=== PATIENT | female | born 1935 | race Caucasian/White ===

== ENCOUNTER 2018-03-24 12:03 | Emergency (ER) | payer OTHER ==
--- NOTE | 2018-03-24 13:44 | RAD REPORT ---
EXAM DESCRIPTION: RAD - Chest Single View - 03/24/2018 1:37 pm CLINICAL HISTORY: CHEST PAIN Chest pain. COMPARISON: Chest Single View dated 07/24/2017; Chest Single View dated 05/04/2017; Chest Pa And Lat ( 2 Views) dated 04/24/2017; CHEST SINGLE VIEW dated 01/16/2015; Thorax Wo Con dated 07/25/2017 FINDINGS: Portable technique limits examination quality. Elevated right hemidiaphragm is seen with ill-defined opacity in the right upper lobe appearing sligh tly progressive since comparative study. The left lung is grossly clear. The heart is upper limit nor mal size. No displaced fractures.
[2018-03-24 14:23] LABS: Absolute Lymphocytes (CBC) 2.1 K/uL (0.7-4.9); Absolute Monocytes 0.9 K/uL (0.1-1.3); Absolute Neutrophil 7.6 K/uL (1.8-8.0); Basophils % 1.1 % (0-1.3); Eosinophils % 1.4 % (0-4.4); Hematocrit 35.3 % (36.0-45.0); Lymphocytes % 19.3 % (15.3-44.8); MCH 25.5 pg (27.0-35.0); MCV 79.6 fL (80-100); MPV 7.7 fL (7.6-11.3); Monocytes % 7.9 % (3.3-12.3); RBC Red Blood Cell Count 4.44 M/uL (3.86-4.86)
[2018-03-24 14:27] LABS: Protime INR 1.04
[2018-03-24 14:49] LABS: ALT/SGPT 17 U/L (12-78); AST/SGOT 16 U/L (15-37); Albumin 3.5 g/dL (3.4-5.0); Alkaline Phosphatase 113 U/L (45-117); BUN Blood Urea Nitrogen 43 mg/dL (7-18); Bicarbonate 34 mmol/L (21-32); Bilirubin Direct < 0.1 mg/dL (0-0.2); Bilirubin Total 0.3 mg/dL (0.2-1.0); Glucose Level 97 mg/dL (74-106); Lipase 199 U/L (73-393); Magnesium 2.1 mg/dL (1.8-2.4); NT PRO-BNP 322 pg/mL (<450); Potassium 4.7 mmol/L (3.5-5.1); Protein, Total 7.5 g/dL (6.4-8.2); Sodium Level 135 mmol/L (136-145)
--- NOTE | 2018-03-24 15:26 | EKG ---
Test Date: 2018-03-24 Test Time: 13:22:19 [employer]estock [employer]: DIEGO MEASUREMENT RESULTS: Intervals: Rate: 87 UT: 166 QRSD: 84 QT: 370 QTc: 445 Novelty: P: 48 UT: 166 QRS: -20 T: 61 INTERPRETIVE STATEMENTS: Normal sinus rhythm Minimal voltage criteria for LVH, may be normal variant Anteroseptal infarct, age undetermined Abnormal ECG Compared to ECG 07/24/2017 18:21:39 Left ventricular hypertrophy now present Myocardial infarct finding still present Electronically Signed On 03-24-18 15:26:01 CDT by Cristian Chambers
[2018-03-24 16:01] LABS: Urine Blood NEGATIVE (NEG); Urine Glucose NEGATIVE (NEG); Urine Protein NEGATIVE (NEG); Urine Specific Gravity 1.015 (1.005-1.030)
--- NOTE | 2018-03-24 16:20 | EDPHYS ---
Physician Documentation [facility] Name: Alia Cisneros Age: 83 yrs Sex: Female : 1935 Arrival Date: 03/24/2018 Time: 12:06 Bed 15 Private MD: Jefferson Staley E ED Physician Catalino Smith HPI: 03/24 15:12 This 83 yrs old Female presents to ER via Wheelchair with complaints of FLUID jr8 RETENTION. 15:12 Onset: The symptoms/episode began/occurred gradually, 3 week(s) ago. Associated signs jr8 and symptoms: The patient has no apparent associated signs or symptoms. Modifying factors: The patient symptoms are alleviated by nothing, the patient symptoms are aggravated by nothing. The patient has experienced similar episodes in the past, a few times. The patient has not recently seen a physician. Stated that she has not been able to get the fluid off of her legs. Stated that she has lung cancer and CKD along with chronic COPD and CHF. Wears home oxygen continuously. Does not f/u with anyone other then PCP and does not want treatment for her kidneys' or cancer. Historical: - Allergies: 12:25 PENICILLINS; aj - Home Meds: 12:25 acetazolamide 250 mg Oral tab once daily [Active]; aspirin 81 mg Oral TbEC 1 tab once aj daily [Active]; equate non-drowsy allergy relief once a day [Active]; hydroxyzine HCl 25 mg Oral tab 4 times per day [Active]; Mucinex DM 60-1,200 mg Oral TM12 twice a day [Active]; omeprazole 20 mg Oral cpDR 1 cap once daily [Active]; - PMHx: 12:25 Cellulitis; CHF; COPD; Hyperlipidemia; Hypertension; R side of diaphragm paralyzed; aj Renal Disease; - PSHx: 12:25 Appendectomy; Tonsillectomy; Cataracts; Foot surgery; Knee surgery; Stomach stapling; aj - Immunization history:: Adult Immunizations up to date. - Social history:: Smoking status: Patient/guardian denies using tobacco. - Ebola Screening: : Patient negative for fever greater than or equal to 101.5 degrees Fahrenheit, and additional compatible Ebola Virus Disease symptoms Patient denies exposure to infectious person Patient denies travel to an Ebola-affected area in the 21 days before illness onset No symptoms or risks identified at this time. ROS: 15:12 Eyes: Negative for injury, pain, redness, and discharge, ENT: Negative for injury, jr8 pain, and discharge, Neck: Negative for injury, pain, and swelling, Respiratory: Negative for shortness of breath, cough, wheezing, and pleuritic chest pain, Abdomen/GI: Negative for abdominal pain, nausea, vomiting, diarrhea, and constipation, Back: Negative for injury and pain, MS/Extremity: Negative for injury and deformity, Skin: Negative for injury, rash, and discoloration, Neuro: Negative for headache, weakness, numbness, tingling, and seizure. 15:12 Cardiovascular: Positive for edema, Negative for chest pain, orthopnea, palpitations, paroxysmal nocturnal dyspnea. Exam: 15:12 Eyes: Pupils equal round and reactive to light, extra-ocular motions intact. Lids and jr8 lashes normal. Conjunctiva and sclera are non-icteric and not injected. Cornea within normal limits. Periorbital areas with no swelling, redness, or edema. ENT: Nares patent. No nasal discharge, no septal abnormalities noted. Tympanic membranes are normal and external auditory canals are clear. Oropharynx with no redness, swelling, or masses, exudates, or evidence of obstruction, uvula midline. Mucous membranes moist. Neck: Trachea midline, no thyromegaly or masses palpated, and no cervical lymphadenopathy. Supple, full range of motion without nuchal rigidity, or vertebral point tenderness. No Meningismus. Respiratory: Lungs have equal breath sounds bilaterally, clear to auscultation and percussion. No rales, rhonchi or wheezes noted. No increased work of breathing, no retractions or nasal flaring. Abdomen/GI: Soft, non-tender, with normal bowel sounds. No distension or tympany. No guarding or rebound. No evidence of tenderness throughout. Back: No spinal tenderness. No costovertebral tenderness. Full range of motion. Skin: Warm, dry with normal turgor. Normal color with no rashes, no lesions, and no evidence of cellulitis. MS/ Extremity: Pulses equal, no cyanosis. Neurovascular intact. Full, normal range of motion. Neuro: Awake and alert, GCS 15, oriented to person, place, time, and situation. Cranial nerves II-XII grossly intact. Motor strength 5/5 in all extremities. Sensory grossly intact. Cerebellar exam normal. Normal gait. 15:12 Cardiovascular: Rate: normal, Rhythm: regular, Pulses: Pulses are 2+ in right radial artery and left radial artery. Heart sounds: normal, normal S1and S2, no S3 or S4, no murmur, no rub, no gallop, Edema: 2+ edema to level of left midcalf, left ankle, left foot, right midcalf, right ankle and right foot, JVD: is not appreciated. Vital Signs: 12:25 BP 128 / 66; Pulse 92; Resp 24; Temp 97.4; Pulse Ox 96% on R/A; Weight 108.86 kg; aj Height 5 ft. 3 in. (160.02 cm); 13:30 BP 145 / 66; Pulse 89; Resp 18; Pulse Ox 99% on R/A; mh5 14:30 BP 119 / 60; Pulse 92; Resp 20; Pulse Ox 99% on R/A; mh5 15:09 BP 144 / 70; Pulse 84; Resp 17; Pulse Ox 97% on R/A; mh5 16:07 BP 152 / 70; Pulse 78; Resp 18; Pulse Ox 98% on 2 lpm NC; ph 12:25 Body Mass Index 42.51 (108.86 kg, 160.02 cm) aj MDM: 13:05 Patient medically screened. [facility] 15:12 Data reviewed: vital signs, nurses notes, lab test result(s), EKG, radiologic studies, [facility] plain films. Data interpreted: Pulse oximetry: on 2L(s) per nasal canula, is 98 %. Interpretation: normal. Counseling: I had a detailed discussion with the patient and/or guardian regarding: the historical points, exam findings, and any diagnostic results supporting the discharge/admit diagnosis, lab results, radiology results, the need for outpatient follow up, a family practitioner, to return to the emergency department if symptoms worsen or persist or if there are any questions or concerns that arise at home. 16:18 ED course: Patient feeling better. Legs not as tight. Will go home to f/u with PCP . 8 03/24 13:05 Order name: Basic Metabolic Panel; Complete Time: 15:05 [facility] 03/24 13:05 Order name: CBC with Diff; Complete Time: 15:05 [facility] 03/24 13:05 Order name: LFT's; Complete Time: 15: [facility] 03/24 13:05 Order name: Magnesium; Complete Time: 15: [facility] 03/24 13:05 Order name: NT PRO-BNP; Complete Time: 15: [facility] 03/24 13:05 Order name: PT-INR; Complete Time: 15: 03/24 13:05 Order name: XRAY Chest (1 view); Complete Time: 15: [facility] 03/24 13:05 Order name: EKG; Complete Time: 13: 03/24 13:05 Order name: Cardiac monitoring; Complete Time: 14: 03/24 13:05 Order name: EKG - Nurse/Tech; Complete Time: 14: [facility] 03/24 13:05 Order name: Lipase; Complete Time: 15: 03/24 15:04 Order name: Urine Dipstick--Ancillary (enter results); Complete Time: 16:20 03/24 13:05 Order name: IV Saline Lock; Complete Time: 14: [facility] 03/24 13:05 Order name: Labs collected and sent; Complete Time: 14: 03/24 13:05 Order name: O2 Per Protocol; Complete Time: 14: [facility] 03/24 13:05 Order name: O2 Sat Monitoring; Complete Time: 14: [facility] 03/24 13:05 Order name: Urine Dipstick-Ancillary (obtain specimen); Complete Time: 14: Administered Medications: 15:00 Drug: Lasix 60 mg Route: IVP; Site: right antecubital; ph 19:25 Follow up: Urine output 1000 ml; Response: No adverse reaction ph Disposition: 03/25 06:52 Co-signature as Attending Physician, Catalino Smith MD I agree with the assessment and jean claude plan of care. Disposition: 03/24/18 16:19 Discharged to Home. Impression: Edema, unspecified - lower extremity, Urinary tract infection, site not specified. - Condition is Stable. - Discharge Instructions: Edema. - Prescriptions for Macrobid 100 mg Oral Capsule - take 1 capsule by ORAL route every 12 hours for 7 days; 14 capsule. - Medication Reconciliation Form, Thank You Letter, Antibiotic Education, Prescription Opioid Use form. - Follow up: Jefferson Staley MD; When: 5 - 6 days; Reason: Recheck today's complaints, Continuance of care, Re-evaluation by your physician. - Problem is new. - Symptoms have improved. Signatures: Dispatcher [employer] Radha Martell, RN RN Catalino Chavez MD MD cha Roszak, Josh, BRISA PA jr8 Dahlia Callahan RN RN ph Corrections: (The following items were deleted from the chart) 03/24 15:15 15:12 Stated that she has not been able to get the fluid off of her legs. Stated that jr8 she has lung cancer and CKD along with chronic COPD and CHF. Wears home oxygen continuously. Does not f/u with anyone other then PCP and does not want treatment for her kidneys' or cancer. . jr8 16:21 16:19 03/24/2018 16:19 Discharged to Home. Impression: Edema, unspecified - lower jr8 extremity. Condition is Stable. Forms are Medication Reconciliation Form, Thank You Letter, Antibiotic Education, Prescription Opioid Use. Follow up: Jefferson Staley; When: 5 - 6 days; Reason: Recheck today's complaints, Continuance of care, Re-evaluation by your physician. Problem is new. Symptoms have improved. jr8 18:17 16:21 03/24/2018 16:19 Discharged to Home. Impression: Edema, unspecified - lower ph extremity; Urinary tract infection, site not specified. Condition is Stable. Discharge Instructions: Edema. Prescriptions for Macrobid 100 mg Oral Capsule - take 1 capsule by ORAL route every 12 hours for 7 days; 14 capsule. and Forms are Medication Reconciliation Form, Thank You Letter, Antibiotic Education, Prescription Opioid Use. Follow up: Jefferson Staley; When: 5 - 6 days; Reason: Recheck today's complaints, Continuance of care, Re-evaluation by your physician. Problem is new. Symptoms have improved. jr8 19:26 18:17 03/24/2018 16:19 Discharged to Home. Impression: Edema, unspecified - lower ph extremity; Urinary tract infection, site not specified. Condition is Stable. Discharge Instructions: Edema. Prescriptions for Macrobid 100 mg Oral Capsule - take 1 capsule by ORAL route every 12 hours for 7 days; 14 capsule. and Forms are Medication Reconciliation Form, Thank You Letter, Antibiotic Education, Prescription Opioid Use. Follow up: Jefferson Staley; When: 5 - 6 days; Reason: Recheck today's complaints, Continuance of care, Re-evaluation by your physician. Problem is new. Symptoms have improved. ph
--- NOTE | 2018-03-24 16:20 | ER ---
Nurse's Notes [facility] Name: Alia Cisneros Age: 83 yrs Sex: Female : 1935 Arrival Date: 03/24/2018 Time: 12:06 Bed 15 Private MD: Jefferson Staley E Diagnosis: Edema, unspecified-lower extremity;Urinary tract infection, site not specified Presentation: 03/24 12:23 Presenting complaint: Patient states: Fluid retention for 2 weeks. Nausea and vomiting aj for 1 month. Instructed to come to ER by Dr Staley staff. Transition of care: patient was not received from another setting of care. Onset of symptoms was March 12, 2018. Risk Assessment: Do you want to hurt yourself or someone else? Patient reports no desire to harm self or others. Initial Sepsis Screen: Does the patient meet any 2 criteria? No. Patient's initial sepsis screen is negative. Does the patient have a suspected source of infection? No. Patient's initial sepsis screen is negative. Care prior to arrival: None. 12:23 Method Of Arrival: Wheelchair aj 12:23 Acuity: DAFNE 3 aj Triage Assessment: 12:25 General: Appears in no apparent distress. comfortable, Behavior is calm, cooperative, aj appropriate for age. Pain: Denies pain. Neuro: Level of Consciousness is awake, alert, obeys commands, Oriented to person, place, time, situation, Appropriate for age. Cardiovascular: Edema is 3+ to left ankle, left foot, right ankle and right foot. Respiratory: Airway is patent Respiratory effort is even, unlabored, Respiratory pattern is regular, symmetrical. GI: Abdomen is flat, Reports nausea, vomiting. Derm: Skin is intact, is healthy with good turgor, Skin is pink, warm \\T\\ dry. normal. Historical: - Allergies: 12:25 PENICILLINS; aj - Home Meds: 12:25 acetazolamide 250 mg Oral tab once daily [Active]; aspirin 81 mg Oral TbEC 1 tab once aj daily [Active]; equate non-drowsy allergy relief once a day [Active]; hydroxyzine HCl 25 mg Oral tab 4 times per day [Active]; Mucinex DM 60-1,200 mg Oral TM12 twice a day [Active]; omeprazole 20 mg Oral cpDR 1 cap once daily [Active]; - PMHx: 12:25 Cellulitis; CHF; COPD; Hyperlipidemia; Hypertension; R side of diaphragm paralyzed; aj Renal Disease; - PSHx: 12:25 Appendectomy; Tonsillectomy; Cataracts; Foot surgery; Knee surgery; Stomach stapling; aj - Immunization history:: Adult Immunizations up to date. - Social history:: Smoking status: Patient/guardian denies using tobacco. - Ebola Screening: : Patient negative for fever greater than or equal to 101.5 degrees Fahrenheit, and additional compatible Ebola Virus Disease symptoms Patient denies exposure to infectious person Patient denies travel to an Ebola-affected area in the 21 days before illness onset No symptoms or risks identified at this time. Screenin:06 Abuse screen: Denies threats or abuse. Denies injuries from another. Nutritional ph screening: No deficits noted. Tuberculosis screening: No symptoms or risk factors identified. Fall Risk No fall in past 12 months (0 pts). No secondary diagnosis (0 pts). IV access (20 points). Ambulatory Aid- None/Bed Rest/Nurse Assist (0 pts). Gait- Normal/Bed Rest/Wheelchair (0 pts) Mental Status- Oriented to own ability (0 pts). Total Med[place] Fall Scale indicates Low Risk Score (25-44 pts). Fall prevention measures have been instituted. Side Rails Up X 2 Frequent Obs/Assesments occuring Family Present and informed to notify staff if they need to leave bedside As available Patient and Family Educated on Fall Prevention Program and strategies. Assessment: 13:12 General: Appears in no apparent distress. uncomfortable, obese, well groomed, Behavior ph is calm, cooperative, appropriate for age, Denies fever, feeling ill. Pain: Complains of pain in right leg and left leg. Neuro: Level of Consciousness is awake, alert, obeys commands, Oriented to person, place, time, situation. Cardiovascular: Reports nausea, shortness of breath, Denies chest pain, Edema is 3+ to left knee, left midcalf, left ankle, left foot, right knee, right midcalf, right ankle and right foot. Respiratory: Reports shortness of breath at rest Airway is patent Respiratory effort is even, unlabored, Respiratory pattern is regular, symmetrical, the patient has mild shortness of breath Denies cough, pain with respiration. GI: Abdomen is non-distended, obese, Bowel sounds present X 4 quads. Abd is soft and non tender X 4 quads. Reports nausea, Patient currently denies abdominal pain, diarrhea, vomiting. : No signs and/or symptoms were reported regarding the genitourinary system. Derm: Skin is intact, is healthy with good turgor, Skin is pink, warm \\T\\ dry. Musculoskeletal: Circulation, motion, and sensation intact. Range of motion: intact in all extremities. 16:05 Reassessment: Patient appears in no apparent distress at this time. Patient and/or ph family updated on plan of care and expected duration. Pain level reassessed. Patient is alert, oriented x 3, equal unlabored respirations, skin warm/dry/pink. ERP at bedside to speak w/ pt, approx 400 mL drainage noted to harvey. 17:00 Reassessment: Patient appears in no apparent distress at this time. Patient and/or ph family updated on plan of care and expected duration. Pain level reassessed. Patient is alert, oriented x 3, equal unlabored respirations, skin warm/dry/pink. Pt up for d/c, pt requesting that she be held in ED for a longer period to allow for diuresis, harvey remains in place w/ approx 700 ml in drainage bag noted, d/c pending. 18:30 Reassessment: Patient appears in no apparent distress at this time. Patient and/or ph family updated on plan of care and expected duration. Pain level reassessed. Patient is alert, oriented x 3, equal unlabored respirations, skin warm/dry/pink. 850 urine noted in drainage bag. 19:25 Reassessment: Patient appears in no apparent distress at this time. Patient and/or ph family updated on plan of care and expected duration. Pain level reassessed. Patient is alert, oriented x 3, equal unlabored respirations, skin warm/dry/pink. Harvey d/c after draining approx 1L of urine, swelling in legs noted to be reduced, pt states, " I can breath better now.". Vital Signs: 12:25 BP 128 / 66; Pulse 92; Resp 24; Temp 97.4; Pulse Ox 96% on R/A; Weight 108.86 kg; aj Height 5 ft. 3 in. (160.02 cm); 13:30 BP 145 / 66; Pulse 89; Resp 18; Pulse Ox 99% on R/A; mh5 14:30 BP 119 / 60; Pulse 92; Resp 20; Pulse Ox 99% on R/A; mh5 15:09 BP 144 / 70; Pulse 84; Resp 17; Pulse Ox 97% on R/A; mh5 16:07 BP 152 / 70; Pulse 78; Resp 18; Pulse Ox 98% on 2 lpm NC; ph 12:25 Body Mass Index 42.51 (108.86 kg, 160.02 cm) aj ED Course: 12:06 Patient arrived in ED. sb2 12:07 Jefferson Staley MD is Private Physician. sb2 12:24 Triage completed. aj 12:25 Arm band placed on left wrist. Patient placed in waiting room, Patient notified of wait aj time. 13:03 Dahlia Callahan RN is Primary Nurse. ph 13:05 Sahw Morgan PA is PHCP. jr8 13:05 Catalino Smith MD is Attending Physician. jr8 13:12 Note: ATTEMPTED CXR BUT PT NOT IN ED ROOM. sw 13:27 EKG done, by dentures lab technician. reviewed by Shaw LEDEZMA. 3 13:37 X-ray completed. Portable x-ray completed in exam room. Patient tolerated procedure jb2 well. 13:37 XRAY Chest (1 view) In Process Unspecified. EDMS 14:00 Missed attempt(s): 22 gauge in right forearm. mh5 14:16 Inserted saline lock: 22 gauge in right antecubital area, using aseptic technique. ss Blood collected. 14:33 Patient has correct armband on for positive identification. Placed in gown. Bed in low mh5 position. Call light in reach. Side rails up X 1. Adult w/ patient. Warm blanket given. Pillow given. pvc monitor on. Pulse ox on. NIBP on. 14:50 Harvey cath inserted, using sterile technique, 16 Fr., by sd, balloon inflated, to ph gravity drainage, urine specimen collected. returned clear yellow urine. Patient tolerated well. 16:19 Jefferson Staley MD is Referral Physician. jr8 19:24 PHCP role handed off by Shaw Morgan PA ph 19:24 Primary Nurse role handed off by Dahlia Callahan RN ph 19:25 Harvey cath removed intact, balloon deflated. IV discontinued, intact, bleeding ph controlled, No redness/swelling at site. Pressure dressing applied. 19:25 No provider procedures requiring assistance completed. ph Administered Medications: 15:00 Drug: Lasix 60 mg Route: IVP; Site: right antecubital; ph 19:25 Follow up: Urine output 1000 ml; Response: No adverse reaction ph Output: 19:25 Urine: 1000ml; Total: 1000ml. ph Outcome: 16:19 Discharge ordered by MD. rico 18:17 Patient left the ED. ph 19:26 Patient left the ED. ph 19:26 Discharged to home via wheelchair, with family. ph 19:26 Condition: improved 19:26 Discharge instructions given to patient, Instructed on discharge instructions, follow up and referral plans. Demonstrated understanding of instructions, follow-up care. Signatures: Dispatcher [employer] EDRadha Friedman RN RN aj Buechter, Jesse jb2 Smirch, Shelby, RN RN ss Roszak, Josh, PA PA jr8 Hall, Patricia, RN RN Joyce Webb Maria [facility] Angie Miranda 2 Lesa Gaviria 3 Corrections: (The following items were deleted from the chart) 12:27 12:25 Arm band placed on left wrist. Patient placed in an exam room, yfn coulter
[2018-03-24 18:38] VITALS: TEMP 97.4
[2018-03-24 18:42] VITALS: BP 152/70; O2SAT 98
== END 2018-03-24 19:26 | disposition home or self-care (01) ==
LOC: ER 12:03
DX: R60.9 Edema, unspecified (principal); N39.0 Urinary tract infection, site not specified; Z88.0 Allergy status to penicillin; E78.5 Hyperlipidemia, unspecified; J44.9 Chronic obstructive pulmonary disease, unspecified; Z99.81 Dependence on supplemental oxygen
CPT/HCPCS: 36415; 51702; 71045; 80048; 80076; 81003; 83690; 83735; 83880; 85025; 85610; 93005; 96374; 99285

== ENCOUNTER 2018-07-21 20:16 | Inpatient (IN) | payer OTHER ==
[2018-07-21] MEDS ORDERED: NA CHLORIDE 0.9% 500 ML ONE (20:44)
[2018-07-21] MEDS ORDERED: ONDANSETRON 4 MG/2 ML VIAL ONE (20:44)
[2018-07-21 21:07] LABS: Absolute Lymphocytes (CBC) 1.3 K/uL (0.7-4.9); Absolute Monocytes 1.2 K/uL (0.1-1.3); Basophils % 0.6 % (0-1.3); Eosinophils % 0.4 % (0-4.4); Hematocrit 28.1 % (36.0-45.0); Lymphocytes % 6.1 % (15.3-44.8); MCH 26.4 pg (27.0-35.0); MCV 82.5 fL (80-100); MPV 8.3 fL (7.6-11.3); Monocytes % 5.3 % (3.3-12.3); RBC Red Blood Cell Count 3.41 M/uL (3.86-4.86)
[2018-07-21 21:31] LABS: Albumin 2.9 g/dL (3.4-5.0); Bilirubin Total 0.2 mg/dL (0.2-1.0); Protein, Total 6.6 g/dL (6.4-8.2)
[2018-07-21 21:33] LABS: Potassium 5.8 mmol/L (3.5-5.1)
[2018-07-21] MEDS ORDERED: INSULIN -REGULAR HUMAN 50 UNIT/0.5 ML ML ONE (21:57)
[2018-07-21] MEDS ORDERED: Caclcium Chloride 10% INJ SYR IV ONE (21:58)
[2018-07-21] MEDS ORDERED: D50W 25 GM/50 ML SYRINGE IV ONE (21:58)
[2018-07-21 22:19] LABS: Platelet Estimate ADEQ
[2018-07-21 22:20] LABS: Blood Morphology Comment NOT SEEN (NOT SEEN)
[2018-07-21] MEDS ORDERED: HYDROCODONE/APAP 10/325 TAB ONE (22:25)
--- NOTE | 2018-07-21 22:35 | EDPHYS ---
Physician Documentation [facility] Name: Alia Cisneros Age: 83 yrs Sex: Female : 1935 Arrival Date: 07/21/2018 Time: 20:19 Bed 14 Private MD: Jefferson Staley E ED Physician Walter Dyson HPI: 07/21 22:35 This 83 yrs old Female presents to ER via EMS with complaints of Diarrhea, tw4 Abdominal Pain. 22:35 The patient presents to the emergency department with nausea, that is moderate, tw4 vomiting, diarrhea, 5 times since the onset of symptoms. Onset: The symptoms/episode began/occurred today. Possible causes: unknown. The symptoms are aggravated by nothing. The symptoms are alleviated by nothing. Associated signs and symptoms: The patient has no apparent associated signs or symptoms. Severity of symptoms: At their worst the symptoms were moderate in the emergency department the symptoms are unchanged. The patient has not experienced similar symptoms in the past. Historical: - Allergies: 20:10 PENICILLINS; cc3 20:10 Codeine; cc3 20:10 NBN sleeping pill; cc3 - Home Meds: 20:10 acetazolamide 250 mg Oral tab once daily [Active]; aspirin 81 mg Oral TbEC 1 tab once cc3 daily [Active]; equate non-drowsy allergy relief once a day [Active]; hydroxyzine HCl 25 mg Oral tab 4 times per day [Active]; Mucinex DM 60-1,200 mg Oral TM12 twice a day [Active]; omeprazole 20 mg Oral cpDR 1 cap once daily [Active]; - PMHx: 20:10 Cellulitis; CHF; COPD; Hyperlipidemia; Hypertension; R side of diaphragm paralyzed; cc3 Renal Disease; Cancer, Lung; - PSHx: 20:10 right knee replacement; Tonsillectomy; Appendectomy; cataract removal; bunionectomy; cc3 - Immunization history:: Adult Immunizations not up to date. - Social history:: Smoking status: Patient/guardian denies using tobacco, but has a distant history of tobacco abuse. - Ebola Screening: : No symptoms or risks identified at this time. ROS: 22:35 Constitutional: Negative for fever, chills, and weight loss, Eyes: Negative for injury, tw4 pain, redness, and discharge, Cardiovascular: Negative for chest pain, palpitations, and edema, Respiratory: Negative for shortness of breath, cough, wheezing, and pleuritic chest pain, Back: Negative for injury and pain, MS/Extremity: Negative for injury and deformity. 22:35 Abdomen/GI: Positive for abdominal pain, nausea and vomiting, nausea, vomiting, and diarrhea, nausea, vomiting, diarrhea, Negative for constipation, abdominal cramps, abdominal distension, anorexia, dysphagia, hematemesis. Exam: 22:35 Constitutional: This is a well developed, well nourished patient who is awake, alert, tw4 and in no acute distress. Head/Face: Normocephalic, atraumatic. Chest/axilla: Normal chest wall appearance and motion. Nontender with no deformity. No lesions are appreciated. Cardiovascular: Regular rate and rhythm with a normal S1 and S2. No gallops, murmurs, or rubs. Normal PMI, no JVD. No pulse deficits. Respiratory: Lungs have equal breath sounds bilaterally, clear to auscultation and percussion. No rales, rhonchi or wheezes noted. No increased work of breathing, no retractions or nasal flaring. 22:35 Back: No spinal tenderness. No costovertebral tenderness. Full range of motion. MS/ Extremity: Pulses equal, no cyanosis. Neurovascular intact. Full, normal range of motion. Neuro: Awake and alert, GCS 15, oriented to person, place, time, and situation. Cranial nerves II-XII grossly intact. Motor strength 5/5 in all extremities. Sensory grossly intact. Cerebellar exam normal. Normal gait. 22:35 Abdomen/GI: Inspection: abdomen appears normal, Bowel sounds: normal, Palpation: mild abdominal tenderness, in all quadrants. Vital Signs: 20:10 BP 143 / 62; Pulse 111; Resp 21 S; Temp 99.6(O); Pulse Ox 97% on 2 lpm NC; Weight 113.4 cc3 kg (R); Height 5 ft. 3 in. (160.02 cm) (R); Pain 4/10; 21:30 BP 138 / 67; Pulse 109; Resp 20 S; Pulse Ox 97% on 2 lpm NC; cc3 22:15 BP 135 / 63; Pulse 112; Resp 20 S; Pulse Ox 97% on 2 lpm NC; cc3 23:46 BP 144 / 62; Pulse 114; Resp 19; Pulse Ox 98% on 2 lpm NC; cc3 07/22 00:58 BP 117 / 59; Pulse 109; Resp 20 S; Pulse Ox 97% on 2 lpm NC; cc3 07/21 20:10 Body Mass Index 44.29 (113.40 kg, 160.02 cm) cc3 MDM: 07/21 20:19 Patient medically screened. tw4 07/22 00:47 Differential diagnosis: Nonspecific abd pain, gastritis, cholecystitis, pancreatitis. tw4 Data reviewed: vital signs, nurses notes. Data interpreted: monitoring coordinator: rhythm is normal sinus rhythm, Pulse oximetry: Interpretation:. Counseling: I had a detailed discussion with the patient and/or guardian regarding: the historical points, exam findings, and any diagnostic results supporting the discharge/admit diagnosis. Physician consultation: Jacqueline Linares MD regarding admission, patient's condition, need to come to ED to see patient, and will see patient in ED. Admission orders: after a detailed discussion of the patient's condition and case, the admit orders are written by me. ED course: Pt rested comfortably on the stretcher in the emeregency dept. Pt's potassium was found to be elevated at 5.8. Pt received insulin, D50, HCO3 and CaCl for hyperkalemia. D/W Dr Arceo who agrees to admit patient for further management . 07/21 20:22 Order name: CBC with Diff; Complete Time: 22:30 tw4 07/21 20:22 Order name: CMP; Complete Time: 21:41 tw4 07/21 21:25 Order name: Manual Differential EDMS 07/21 23:19 Order name: Lactate EDMS 07/21 23:19 Order name: Procalcitonin EDMS 07/21 23:26 Order name: Urinalysis EDMS 07/21 22:52 Order name: CT Abd/Pelvis - Without Cont tw4 07/21 23:29 Order name: Clostridium difficile DNA EDMS 07/22 01:04 Order name: Basic Metabolic Panel EDMS 07/22 01:04 Order name: Basic Metabolic Panel EDMS 07/22 01:04 Order name: CBC with Automated Diff EDMS 07/22 01:04 Order name: CBC with Automated Diff EDMS 07/21 20:22 Order name: Saline Lock; Complete Time: 21:01 tw4 07/21 21:42 Order name: EKG; Complete Time: :43 tw4 07/22 01:03 Order name: NPO EDMS Administered Medications: 07/21 20:50 Drug: NS 0.9% 500 ml Route: IV; Rate: bolus; Site: left antecubital; cc3 22:00 Follow up: Response: No adverse reaction; IV Status: Completed infusion; IV Intake: cc3 500ml 20:52 Drug: Zofran 4 mg Route: IVP; Site: left antecubital; cc3 21:30 Follow up: Response: No adverse reaction; Nausea is decreased cc3 21:50 Drug: D50W 50 ml Route: IVP; Site: left antecubital; cc3 22:30 Follow up: Response: No adverse reaction cc3 21:55 Drug: Insulin Regular Human 10 units {Co-Signature: jd3 (Mayur Urbano RN).} Route: cc3 IVP; Site: left antecubital; 22:30 Follow up: Response: No adverse reaction cc3 21:57 Drug: Calcium Chloride 1 grams Route: IVP; Site: left antecubital; cc3 23:00 Follow up: Response: No adverse reaction cc3 22:20 Drug: Tappen 10 mg-325 mg 1 tabs Route: PO; cc3 23:00 Follow up: Response: No adverse reaction; Pain is decreased cc3 Disposition: 07/21/18 22:34 Hospitalization ordered by Jacqueline Linares for Inpatient Admission. Preliminary diagnosis are Hyperkalemia, Dehydration, Vomiting, unspecified, Diarrhea, unspecified, Acute kidney failure. - Bed requested for Telemetry/MedSurg (Inpatient). - Status is Inpatient Admission. cc3 - Condition is Stable. - Problem is new. - Symptoms have improved. UTI on Admission? No Critical care time excluding procedures: 07/22 00:47 Critical care time: Bedside Care: 20 minutes, Consultation: 5 minutes, Family tw4 Intervention: 5 minutes. Total time: 30 minutes Signatures: Dispatcher Chiquis Manzo RN RN kl Wadley, Terrence, MD MD tw4 Ml Robles cc3 Mayur Urbano RN jd3 Corrections: (The following items were deleted from the chart) 00:47 07/21 22:34 Hospitalization Ordered by Jacqueline Linares MD for Inpatient Admission. kl Preliminary diagnosis is Hyperkalemia; Dehydration; Vomiting, unspecified; Diarrhea, unspecified; Acute kidney failure. Bed requested for Telemetry/MedSurg (Inpatient). Status is Inpatient Admission. Condition is Stable. Problem is new. Symptoms have improved. UTI on Admission? No. tw4 07/22 01:15 00:47 07/21/2018 22:34 Hospitalization Ordered by Jacqueline Linares MD for Inpatient cc3 Admission. Preliminary diagnosis is Hyperkalemia; Dehydration; Vomiting, unspecified; Diarrhea, unspecified; Acute kidney failure. Bed requested for Telemetry/MedSurg (Inpatient). Status is Inpatient Admission. Condition is Stable. Problem is new. Symptoms have improved. UTI on Admission? No. kl
--- NOTE | 2018-07-21 22:35 | ER ---
Nurse's Notes [facility] Name: Alia Cisneros Age: 83 yrs Sex: Female : 1935 Arrival Date: 07/21/2018 Time: 20:19 Bed 14 Private MD: Jefferson Staley E Diagnosis: Hyperkalemia;Dehydration;Vomiting, unspecified;Diarrhea, unspecified;Acute kidney failure Presentation: 07/21 20:10 Presenting complaint: EMS states: nausea and excessive diarrhea today morning. cc3 Transition of care: patient was not received from another setting of care. Onset of symptoms was July 21, 2018. Risk Assessment: Do you want to hurt yourself or someone else? Patient reports no desire to harm self or others. Initial Sepsis Screen: Does the patient meet any 2 criteria? No. Patient's initial sepsis screen is negative. Does the patient have a suspected source of infection? No. Patient's initial sepsis screen is negative. Care prior to arrival: None. 20:10 Method Of Arrival: EMS: [facility] cc3 20:10 Acuity: DAFNE 3 cc3 Triage Assessment: 20:10 General: Appears in no apparent distress. comfortable, Behavior is calm, cooperative, cc3 appropriate for age. Pain: Denies pain. EENT: No signs and/or symptoms were reported regarding the EENT system. Neuro: Level of Consciousness is awake, alert, obeys commands, Oriented to person, place, time, situation, Appropriate for age. Cardiovascular: Denies chest pain. Respiratory: Airway is patent Respiratory effort is even, unlabored, Respiratory pattern is regular, symmetrical, patient on home oxygen therapy at 2 liters per minute by nasal cannula. GI: Abdomen is round obese. : No signs and/or symptoms were reported regarding the genitourinary system. Derm: bilateral lower limb edema. Musculoskeletal: Circulation, motion, and sensation intact. Range of motion: limited in bilateral lower limbs Swelling present in bilateral lower limbs. Historical: - Allergies: 20:10 PENICILLINS; cc3 20:10 Codeine; cc3 20:10 NBN sleeping pill; cc3 - Home Meds: 20:10 acetazolamide 250 mg Oral tab once daily [Active]; aspirin 81 mg Oral TbEC 1 tab once cc3 daily [Active]; equate non-drowsy allergy relief once a day [Active]; hydroxyzine HCl 25 mg Oral tab 4 times per day [Active]; Mucinex DM 60-1,200 mg Oral TM12 twice a day [Active]; omeprazole 20 mg Oral cpDR 1 cap once daily [Active]; - PMHx: 20:10 Cellulitis; CHF; COPD; Hyperlipidemia; Hypertension; R side of diaphragm paralyzed; cc3 Renal Disease; Cancer, Lung; - PSHx: 20:10 right knee replacement; Tonsillectomy; Appendectomy; cataract removal; bunionectomy; cc3 - Immunization history:: Adult Immunizations not up to date. - Social history:: Smoking status: Patient/guardian denies using tobacco, but has a distant history of tobacco abuse. - Ebola Screening: : No symptoms or risks identified at this time. Screenin:10 Abuse screen: Denies threats or abuse. Denies injuries from another. Nutritional cc3 screening: No deficits noted. Tuberculosis screening: No symptoms or risk factors identified. Fall Risk Ambulatory Aid- Crutches/Cane/Walker (15 pts). Gait- Impaired (20 pts.). Mental Status- Oriented to own ability (0 pts). Assessment: 20:10 General: see triage assessment. cc3 21:30 Reassessment: Patient appears in no apparent distress at this time. Patient and/or cc3 family updated on plan of care and expected duration. Pain level reassessed. Patient is alert, oriented x 3, equal unlabored respirations, skin warm/dry/pink. 22:20 Reassessment: Patient appears in no apparent distress at this time. Patient and/or cc3 family updated on plan of care and expected duration. Pain level reassessed. Patient is alert, oriented x 3, equal unlabored respirations, skin warm/dry/pink. Patient complained of low back pain and said she wants to have Flint because she's taking Flint 10mg/325mg at home for her pain, informed Dr. Dyson and he ordered the same. 23:00 Reassessment: Patient appears in no apparent distress at this time. Patient and/or cc3 family updated on plan of care and expected duration. Pain level reassessed. Patient is alert, oriented x 3, equal unlabored respirations, skin warm/dry/pink. Dr. Arceo came and assessed the patient, for admission waiting for admission orders. 07/22 00:45 Reassessment: Patient appears in no apparent distress at this time. Patient and/or cc3 family updated on plan of care and expected duration. Pain level reassessed. Patient is alert, oriented x 3, equal unlabored respirations, skin warm/dry/pink. Room available in 222, called extension [phone] for report but was told that the nurse who will receive is still with another patient so to wait for her return call. 01:00 Reassessment: Patient appears in no apparent distress at this time. Patient and/or cc3 family updated on plan of care and expected duration. Pain level reassessed. Patient is alert, oriented x 3, equal unlabored respirations, skin warm/dry/pink. Handed over the report to SANDEEP Ring for continuity of care. 01:10 Reassessment: Patient left ER for admission vitally stable by wheelchair on oxygen cc3 therapy by nasal cannula escorted by reactor technician Viviane and the patient's grandson. Vital Signs: 07/21 20:10 BP 143 / 62; Pulse 111; Resp 21 S; Temp 99.6(O); Pulse Ox 97% on 2 lpm NC; Weight 113.4 cc3 kg (R); Height 5 ft. 3 in. (160.02 cm) (R); Pain 4/10; 21:30 BP 138 / 67; Pulse 109; Resp 20 S; Pulse Ox 97% on 2 lpm NC; cc3 22:15 BP 135 / 63; Pulse 112; Resp 20 S; Pulse Ox 97% on 2 lpm NC; cc3 23:46 BP 144 / 62; Pulse 114; Resp 19; Pulse Ox 98% on 2 lpm NC; cc3 07/22 00:58 BP 117 / 59; Pulse 109; Resp 20 S; Pulse Ox 97% on 2 lpm NC; cc3 07/21 20:10 Body Mass Index 44.29 (113.40 kg, 160.02 cm) cc3 ED Course: 07/21 20:10 Arm band placed on left wrist. cc3 20:10 Patient has correct armband on for positive identification. Bed in low position. Call cc3 light in reach. Side rails up X2. signal person on. Pulse ox on. NIBP on. 20:19 Patient arrived in ED. ds1 20:19 Walter Dyson MD is Attending Physician. tw4 20:50 Inserted saline lock: 20 gauge in left antecubital area, using aseptic technique. Blood cc3 collected. 20:52 Jefferson Staley MD is Private Physician. ds1 21:00 Ml Robles is Primary Nurse. cc3 21:15 Triage completed. cc3 21:23 Notified ED physician of a critical lab result(s). WBCs of 21.8 Dr Dyson notified. bb 22:33 Jacqueline Linares MD is Hospitalizing Provider. tw4 22:48 Assisted to bedside commode. Cleaned of incontinence. jd3 22:[address] nj 23:26 CT Abd/Pelvis - Without Cont In Process Unspecified. EDMS 23:26 CT completed. Patient tolerated procedure well. Patient moved back from CT. kw1 07/22 01:00 No provider procedures requiring assistance completed. Patient admitted, IV remains in cc3 place. Administered Medications: 07/21 20:50 Drug: NS 0.9% 500 ml Route: IV; Rate: bolus; Site: left antecubital; cc3 22:00 Follow up: Response: No adverse reaction; IV Status: Completed infusion; IV Intake: cc3 500ml 20:52 Drug: Zofran 4 mg Route: IVP; Site: left antecubital; cc3 21:30 Follow up: Response: No adverse reaction; Nausea is decreased cc3 21:50 Drug: D50W 50 ml Route: IVP; Site: left antecubital; cc3 22:30 Follow up: Response: No adverse reaction cc3 21:55 Drug: Insulin Regular Human 10 units {Co-Signature: jd3 (Mayur Urbano RN).} Route: cc3 IVP; Site: left antecubital; 22:30 Follow up: Response: No adverse reaction cc3 21:57 Drug: Calcium Chloride 1 grams Route: IVP; Site: left antecubital; cc3 23:00 Follow up: Response: No adverse reaction cc3 22:20 Drug: Flint 10 mg-325 mg 1 tabs Route: PO; cc3 23:00 Follow up: Response: No adverse reaction; Pain is decreased cc3 Intake: 22:00 IV: 500ml; Total: 500ml. cc3 Outcome: 22:34 Decision to Hospitalize by Provider. tw4 07/22 01:00 Admitted to Med/surg accompanied by tech, family with patient, via wheelchair, room cc3 222, with oxygen, with chart, Report called to SANDEEP Ring Condition: stable Instructed on the need for admit. 01:15 Patient left the ED. cc3 Signatures: Dispatcher [employer] EDID Kari Billings Edna Naranjo RN RN bb Jordan, Nathan nj Davies, Jonathon, RN RN jd3 Chiquis Bardales1 Walter Dyson MD MD tw4 Ml Robles cc3 Mayur Urbano RN jd3 Corrections: (The following items were deleted from the chart) 00:54 07/21 20:10 BP 143 / 62; Pulse 111bpm; Resp 21bpm; Spontaneous; Pulse Ox 97% 2 lpm cc3 Nasal Cannula; Temp 99.6F Oral; Pain 4/10; cc3
[2018-07-21] MEDS ORDERED: NA CHLORIDE 0.9% 1,000 ML IV ONE (23:05)
[2018-07-21] MEDS ORDERED: SOD POLYSTYREN SUL 15 GM/60 ML UCUP PO ONE (23:05)
--- NOTE | 2018-07-21 23:25 | P.HP ---
Certification for Inpatient Patient admitted to: Inpatient With expected LOS: >2 Midnights Practitioner: I am a practitioner with admitting privileges, knowledge of patient current condition, hospital course, and medical plan of care. Services: Services provided to patient in accordance with Admission requirements found in Title 42 Section 412.3 of the Code of Federal Regulations Patient History Date of Service: 07/21/18 Reason for admission: Diarrhea, acute on CKD History of Present Illness: Ms Cisneros is an 83-year-old woman with history of COPD on home oxygen, hypertension, dyslipidemia, chronic kidney disease who start about 2 weeks with lose stools which has progressed to diarrhea. This morning the patient has had several episode of diarrhea noticing some blood in the stools. She denied any fever but has has chills. She also is complaining of nausea diffuse abdominal pain. She denied recent admission to the hospital for antibiotic treatment. Her has been seen in ER at the same time also was diarrhea. Lab work remarkable for leukocytosis 21.8 K, potassium is elevated as well 5.8, and creatinine 2.7 which is increased compared with her baseline Allergies Penicillins Allergy (Intermediate, Verified 04/24/17 21:38) Rash propoxyphene napsylate [From Darvocet-N 100] Allergy (Mild, Verified 04/24/17 21 :38) Itching zolpidem Allergy (Mild, Verified 04/24/17 21:38) Itching Home medications list reviewed: Yes Home Medications: Aspirin [Aspirin EC 81 MG] 1 tab PO DAILY 04/25/17 hydrOXYzine HCl [Atarax] 50 mg PO QID 04/25/17 Arformoterol Tartrate [Brovana] 15 mcg NEB BIDRESP #60 vial.neb 04/27/17 Albuterol Sulfate [Proair Hfa] 1 puff IH BID PRN 07/24/17 Hydrocodone/Acetaminophen [Hydrocodone-Acetamin 10-325 mg] 1 tab PO TID PRN Melatonin 3 mg PO BEDTIME 07/24/17 Tiotropium [place] [Spiriva Respimat] 1 puff IH BID 07/24/17 predniSONE [Prednisone] 1 tab PO DAILY 07/24/17 Benzonatate [Tessalon Perle] 100 mg PO TID #30 cap 07/25/17 Furosemide [Lasix] 40 mg PO BID #30 tablet 07/25/17 - Past Medical/Surgical History Diabetic: No -: hypertension -: hyperlipidemia -: renal disease class 3 -: COPD -: psoriasis -: CHF -: Sleep apnea noncompliant -: tonsilectomy -: appy -: stomach stapling -: bunion removal -: right knee replacement -: cataracts removed -: partical hyst, L breast cyst removed, bladder suspension - Family History Mother -: Cancer Notes: pancreatic cancer Father -: Lung disease Notes: copd Sister -: Cancer Notes: BREAST CANCER Brother -: Cancer Notes: lung cancer - Social History Smoking Status: Former smoker Alcohol use: No CD- Drugs: No Caffeine use: Yes Place of Residence: Home Review of Systems 10-point ROS is otherwise unremarkable Physical Examination - Physical Exam General: Alert, In no apparent distress HEENT: Atraumatic, PERRLA, Mucous membr. moist/pink, EOMI, Sclerae nonicteric Neck: Supple, 2+ carotid pulse no bruit, No LAD, Without JVD or thyroid abnormality Respiratory: Diminished, Other (Course bilaterally) Cardiovascular: Regular rate/rhythm, Normal S1 S2 Gastrointestinal: Normal bowel sounds, Distended, Tenderness (Diffuse) Musculoskeletal: No tenderness Integumentary: No rashes Neurological: Normal speech, Normal strength at 5/5 x4 extr, Normal tone, Normal affect Lymphatics: No axilla or inguinal lymphadenopathy - Studies Laboratory Data (last 24 hrs) 07/21/18 20:50: Sodium 136, Potassium 5.8 H*, BUN 82 H, Creatinine 2.70 H, Glucose 115 H, Total Bilirubin 0.2, AST 15, ALT 18, Alkaline Phosphatase 100 07/21/18 20:50: WBC 21.8 H*, Hgb 9.0 L, Hct 28.1 L, Plt Count 212 Assessment and Plan - Problems (Diagnosis) (1) Hyperkalemia Current Visit: Yes Status: Acute (2) Acute kidney injury superimposed on chronic kidney disease Current Visit: Yes Status: Acute (3) COPD (chronic obstructive pulmonary disease) Current Visit: No Status: Acute Qualifiers: COPD type: chronic bronchitis Chronic bronchitis type: simple Qualified Code(s): J41.0 - Simple chronic bronchitis (4) Hypertension Onset Date: 07/25/17 Current Visit: No Status: Chronic Qualifiers: Hypertension type: essential hypertension Qualified Code(s): I10 - Essential (primary) hypertension (5) Morbid obesity with BMI of 45.0-49.9, adult Onset Date: 07/25/17 Current Visit: No Status: Chronic (6) Diarrhea Current Visit: Yes Status: Acute Qualifiers: Diarrhea type: presumed infectious Qualified Code(s): R19.7 - Diarrhea, unspecified - Plan The patient will be admitted to the hospital due to presumed infectious diarrhea. She has leukocytosis and low-grade fever, temperature patient 99.6. Will order a lactate, procalcitonin levels, CT abdomen and pelvis, start empiric IV antibiotics cut, IV fluids. Her potassium is elevated at she already has received treatment in ER. Will continue monitoring potassium level for farther treatment. - Advance Directives Does patient have a Living Will: No Does patient have a Durable POA for Healthcare: No - Code Status/Comfort Care Code Status Assessed: Yes Code Status: Full Code
[2018-07-22] MEDS: INSULIN -REGULAR HUMAN 50 UNIT/0.5 ML ML SQ SCH ×4 (01:03→18:00)
[2018-07-22] MEDS ORDERED: ACETAMINOPHEN 500 MG TAB PO PRN (01:03)
[2018-07-22 01:57] VITALS: BMI 44.2
[2018-07-22] MEDS: METRONIDAZOLE 500mg IVPB 500 MG/100 ML BAG IV SCH ×3 (02:28→16:46)
[2018-07-22] MEDS ORDERED: CIPROFLOXACIN 400mg IV 400 MG/200 ML BAG IV SCH ×2 (03:00→09:00)
[2018-07-22] MEDS: NA CHLORIDE 0.9% 1,000 ML IV SCH ×3 (03:42→21:45)
[2018-07-22] MEDS: MORPHINE 2 MG/ML SYR IV PRN ×3 (03:48→20:51)
[2018-07-22 04:29] LABS: Urine Appearance CLEAR; Urine Bilirubin NEGATIVE (NEG); Urine Blood NEGATIVE (NEG); Urine Color YELLOW; Urine Glucose NEGATIVE (NEG); Urine Protein NEGATIVE (NEG); Urine Specific Gravity 1.015 (1.005-1.030); Urine Urobilinogen 0.2 mg/dL (0.2-1.0); Urine pH 5.5 (5.0-7.0)
[2018-07-22 04:31] LABS: Urine Microscopic Reflex ORDER UMIC
[2018-07-22 05:12] LABS: Absolute Lymphocytes (CBC) 2.2 K/uL (0.7-4.9); Absolute Monocytes 1.5 K/uL (0.1-1.3); Absolute Neutrophil 18.7 K/uL (1.8-8.0); Basophils % 0.1 % (0-1.3); Hematocrit 23.7 % (36.0-45.0); Lymphocytes % 9.7 % (15.3-44.8); MCH 26.2 pg (27.0-35.0); MCV 81.8 fL (80-100); MPV 8.5 fL (7.6-11.3); Monocytes % 6.7 % (3.3-12.3); RBC Red Blood Cell Count 2.89 M/uL (3.86-4.86)
[2018-07-22 05:36] LABS: Magnesium 2.1 mg/dL (1.8-2.4); Potassium 4.9 mmol/L (3.5-5.1)
[2018-07-22 05:37] LABS: Urine Bacteria 20-50 /HPF (<20); Urine Culture Reflex Order REFLEXED; Urine RBC <5 /HPF (NONE SEEN)
[2018-07-22] MEDS ORDERED: SODIUM CHLORIDE 0.9% 10ML INJ IV PRN (06:19)
--- NOTE | 2018-07-22 06:50 | EKG ---
Test Date: 2018-07-21 Test Time: 22:58:26 Digital Retoucher: FERDINAND MEASUREMENT RESULTS: Intervals: Rate: 116 NH: 162 QRSD: 116 QT: 318 QTc: 442 [place]: P: 72 NH: 162 QRS: -55 T: 48 INTERPRETIVE STATEMENTS: Sinus tachycardia with premature supraventricular complexes Incomplete right bundle branch block Left anterior fascicular block Cannot rule out Anterior infarct, age undetermined Abnormal ECG Compared to ECG 03/24/2018 13:22:19 Atrial premature complex(es) now present Incomplete right bundle-branch block now present Left anterior fascicular block now present Sinus rhythm no longer present Left ventricular hypertrophy no longer present Myocardial infarct finding still present Electronically Signed On 07-22-18 06:49:38 CDT by Clay Leahy
[2018-07-22] MEDS: ONDANSETRON 4 MG/2 ML VIAL IV PRN (07:34)
[2018-07-22] MEDS ORDERED: INFLUENZA VACCINE (for 3y+) 0.5 ML DOSE IMVAC ONE (08:00)
[2018-07-22] MEDS ORDERED: PNEUMOCOCCAL VACCINE 0.5 ML IMVAC ONE (08:00)
--- NOTE | 2018-07-22 08:24 | RAD REPORT ---
EXAM DESCRIPTION: CT - Abdomen Pelvis Wo Contrast - 07/22/2018 2:50 am CLINICAL HISTORY: Abdominal pain. ABD PAIN COMPARISON: CT ABD PELVIS W CONTRAST dated 09/27/2009 TECHNIQUE: CT imaging of the abdomen and pelvis was performed without contrast. Solid organ, bowel a nd vascular assessment is limited due to lack of IV and oral contrast. All CT scans are performed using dose optimization technique as appropriate and may include automated exposure control or mA/KV adjustment according to patient size. FINDINGS: Elevation of the right hemidiaphragm is seen with atelectasis in the right lung base.Posts urgical changes are present about the stomach with a small hiatal hernia. Distal esophagus appears mi ldly thickened. The liver, spleen, pancreas, adrenal glands and right kidney are within normal limits for a limited n on-contrast examination.Atrophic changes involving the left kidney seen. No bowel obstruction, free air, free fluid or abscess. The appendix is not identified as a discrete structure, however, no secondary findings of appendicitis are identified. The osseous structures are within normal limits. IMPRESSION: No acute intra-abdominal or pelvic findings. A limited non-contrast examination was performed as detailed.
[2018-07-22] MEDS: PANTOPRAZOLE 40 MG INJ IVP SCH ×2 (10:04→20:51)
[2018-07-22 16:00] LABS: Hematocrit 22.2 % (36.0-45.0)
--- NOTE | 2018-07-22 16:01 | P.PN ---
Subjective Date of Service: 07/22/18 Chief Complaint: Diarrhea, acute on CKD Patient seen and examined at bedside. Grandson at bedside. Case discussed with nursing staff. Patient states that she has not had an episode of bowel movement since last night in the ER where he was noted to be bloody. She continues to have abdominal pain and nausea. She denies any chest pain, fevers , chills overnight or any urinary symptoms. Review of Systems 10-point ROS is otherwise unremarkable Physical Examination - Vital Signs Temperature: 98.3 F Blood Pressure: 120/53 Pulse: 92 Respirations: 18 Pulse Ox (%): 97 - Physical Exam General: Alert, Mild distress HEENT: Atraumatic, PERRLA, EOMI Neck: Supple, JVD not distended Respiratory: Clear to auscultation bilaterally, Normal air movement Cardiovascular: Regular rate/rhythm, Normal S1 S2 Gastrointestinal: Normal bowel sounds, Non-distended, No rebound, No guarding, Tenderness (Diffuse, with deep palpation.) Neurological: Normal speech, Normal tone, Normal affect Lymphatics: No axilla or inguinal lymphadenopathy - Studies Laboratory Data (last 24 hrs) 07/21/18 20:50: Sodium 136, Potassium 5.8 H*, BUN 82 H, Creatinine 2.70 H, Glucose 115 H, Total Bilirubin 0.2, AST 15, ALT 18, Alkaline Phosphatase 100 07/21/18 20:50: WBC 21.8 H*, Hgb 9.0 L, Hct 28.1 L, Plt Count 212 Medications List Reviewed: Yes Assessment And Plan - Current Problems (Diagnosis) (1) UTI (urinary tract infection) Current Visit: Yes Status: Acute (2) Acute kidney injury superimposed on chronic kidney disease Current Visit: Yes Status: Acute (3) Diarrhea Current Visit: Yes Status: Acute Qualifiers: Diarrhea type: presumed infectious Qualified Code(s): R19.7 - Diarrhea, unspecified (4) Anemia Onset Date: 11/23/14 Current Visit: No Status: Acute (5) Hypertension Onset Date: 07/25/17 Current Visit: No Status: Chronic Qualifiers: Hypertension type: essential hypertension Qualified Code(s): I10 - Essential (primary) hypertension (6) Morbid obesity with BMI of 45.0-49.9, adult Onset Date: 07/25/17 Current Visit: No Status: Chronic - Plan - abdominal pain/diarrhea: Patient admitted for abdominal pain with diarrhea. Possibility of infectious GI etiology. CT scan without any acute abnormality. GI studies pending but per patient, she has not had a bowel movement since last night when she was in the ER. Will send his stool sample when patient has a bowel movement. Also check fecal occult blood. Keep NPO, Will continue IV antibiotics and IV fluids at this time. GI consulted. - anemia: Likely secondary to acute blood loss. Hemoglobin dropped from 9 to 7.6. On recheck, hemoglobin was down to 7. Will transfuse 1 unit PRBC. Recheck H&H 2 hr post transfusion. Will continue to monitor. - leukocytosis: She continues to be on IV antibiotics. Will monitor - UTI: Continue IV antibiotics. Pending urine cultures - Acute kidney injury superimposed on chronic kidney disease: Creatinine remains stable from admission. Will continue IV antibiotics and monitor kidney function. - Hypertension: Stable, - Hyperkalemia: Resolved - COPD (chronic obstructive pulmonary disease): Continue supplemental oxygen. Patient on baseline of home oxygen. - Morbid obesity with BMI of 45.0-49.9, adult
[2018-07-22] MEDS ORDERED: NA CHLORIDE 0.9% 250 ML ONE (21:24)
[2018-07-23] MEDS: METRONIDAZOLE 500mg IVPB 500 MG/100 ML BAG IV SCH ×3 (00:49→17:10)
[2018-07-23] MEDS: MORPHINE 2 MG/ML SYR IV PRN ×3 (00:50→13:38)
[2018-07-23 03:01] LABS: Hematocrit 24.2 % (36.0-45.0)
[2018-07-23] MEDS ORDERED: CIPROFLOXACIN 400mg IV 400 MG/200 ML BAG IV SCH (04:00)
[2018-07-23] MEDS: INSULIN -REGULAR HUMAN 50 UNIT/0.5 ML ML SQ SCH ×5 (06:00→21:00)
[2018-07-23] MEDS: NA CHLORIDE 0.9% 1,000 ML IV SCH ×3 (06:21→17:03)
[2018-07-23] MEDS: PANTOPRAZOLE 40 MG INJ IVP SCH ×2 (08:17→21:58)
[2018-07-23] MEDS ORDERED: INFLUENZA VACCINE (for 3y+) 0.5 ML DOSE IMVAC ONE (09:00)
[2018-07-23] MEDS ORDERED: PNEUMOCOCCAL VACCINE 0.5 ML IMVAC ONE (09:00)
[2018-07-23] MEDS: CIPROFLOXACIN 400mg IV 400 MG/200 ML BAG IV SCH (09:30)
[2018-07-23] MEDS ORDERED: NA CHLORIDE 0.9% 1,000 ML ONE (10:47)
[2018-07-23] MEDS ORDERED: EPINEPHRINE/PF 1 MG/ML AMP ONE (10:54)
[2018-07-23] MEDS ORDERED: PROPOFOL 200 MG/20 ML VIAL IV ONE (10:55)
[2018-07-23] MEDS ORDERED: LIDOCAINE 1% MPF 5 ML VIAL ONE (10:55)
[2018-07-23] MEDS: ALBUTEROL 2.5 MG/3 ML NEB SOL NEB PRN (14:11)
[2018-07-23] MEDS ORDERED: D50W 25 GM/50 ML SYRINGE IV PRN (15:13)
[2018-07-23] MEDS ORDERED: GLUCAGON 1 MG/VIAL IM PRN (15:13)
[2018-07-23] MEDS: HYDROCODONE/APAP 10/325 TAB PO PRN (15:21)
[2018-07-23 15:48] LABS: Hematocrit 24.8 % (36.0-45.0)
--- NOTE | 2018-07-23 16:19 | P.PN ---
Subjective Date of Service: 07/23/18 Chief Complaint: Diarrhea, acute on CKD Patient seen and examined at bedside. Grandson at bedside. Case discussed with nursing staff. Patient states that she has not had an episode of bowel movement since 2 nights ago in the ER where it was noted to be bloody. She reports improved abdominal pain, nausea and vomiting. She denies any chest pain, fevers, chills overnight or any urinary symptoms. Review of Systems As noted above Physical Examination - Vital Signs Temperature: 97.7 F Blood Pressure: 146/55 Pulse: 88 Respirations: 18 Pulse Ox (%): 98 - Physical Exam General: Alert, In no apparent distress, Oriented x3 HEENT: Atraumatic, PERRLA, EOMI Neck: Supple, JVD not distended Respiratory: Clear to auscultation bilaterally, Normal air movement Cardiovascular: Regular rate/rhythm, Normal S1 S2 Gastrointestinal: Normal bowel sounds, Tenderness ( mild tenderness, diffusely. No guarding, rebound. Limited exam due to body habitus. ) Musculoskeletal: No tenderness Integumentary: No rashes Neurological: Normal speech, Normal tone, Normal affect - Studies Medications List Reviewed: Yes Assessment And Plan - Current Problems (Diagnosis) (1) UTI (urinary tract infection) Current Visit: Yes Status: Acute (2) Acute kidney injury superimposed on chronic kidney disease Onset Date: 07/23/18 Current Visit: Yes Status: Acute (3) Diarrhea Onset Date: 07/23/18 Current Visit: Yes Status: Acute Qualifiers: Diarrhea type: presumed infectious Qualified Code(s): R19.7 - Diarrhea, unspecified (4) Anemia Onset Date: 11/23/14 Current Visit: No Status: Acute (5) Hypertension Onset Date: 07/25/17 Current Visit: No Status: Chronic Qualifiers: Hypertension type: essential hypertension Qualified Code(s): I10 - Essential (primary) hypertension (6) Morbid obesity with BMI of 45.0-49.9, adult Onset Date: 07/25/17 Current Visit: No Status: Chronic - Plan - Abdominal pain/diarrhea: Patient admitted for abdominal pain with diarrhea. Possibility of infectious GI etiology. CT scan without any acute abnormality. GI studies pending but per patient, she has not had a bowel movement since 2 nights ago when she was in the ER. Will send his stool sample when patient has a bowel movement. Also check fecal occult blood. Full liquid diet, will advance as tolerated. Will continue IV antibiotics and IV fluids at this time. GI consulted. Recs appreciated EGD Performed today, with gastritis and small AVM, no actiev bleeding noted. Will continue protonix for now. - Anemia: Likely secondary to acute blood loss with hx of chronic anemia. Hemoglobin dropped from 9 to 7.6. Post transfusion, H&H has remained stable, 8.1 this afternoon. Will continue to monitor. - leukocytosis: She continues to be on IV antibiotics. Will monitor - UTI: Continue IV antibiotics. Pending urine cultures - Acute kidney injury superimposed on chronic kidney disease: Creatinine remains stable from admission. Will continue IV antibiotics and monitor kidney function. - Hypertension: Stable, - Hyperkalemia: Resolved - COPD (chronic obstructive pulmonary disease): Continue supplemental oxygen. Patient on baseline of home oxygen. - Morbid obesity with BMI of 45.0-49.9, adult Discharge Plan: Home Plan to discharge in: 24 Hours
--- NOTE | 2018-07-23 21:48 | OP ---
Surgeon: Dami Wheeler MD Procedure To Be Performed: Esophagogastroduodenoscopy. Indication For Procedure: Anemia, possibly of chronic disease and a recent history of GI bleed. Plan For Anesthesia: Monitored anesthesia care. Complexity: Due to the patient's significant comorbid conditions, she has higher than normal risk as per Anesthesia. Technique: After obtaining informed consent from the patient and explaining risks and complications which include, but are not limited to bleeding, infection, perforation, and anesthesia complication, the patient was placed in the left lateral position and sedation was given. From then on, the scope was advanced into the mouth and carefully guided up to the second portion of the duodenum. There was no evidence of active bleeding, however, some findings were addressed. After the completion of proc edure, the scope and equipment were withdrawn and procedure terminated in a safe manner. Findings: Esophagus: The whole esophagus was mildly tortuous without any definitive strictures or o ther lesions. A small hiatal hernia was seen in the distal esophagus. In the stomach, there was whitney dence of prior gastric surgery. It appears that the patient has had a gastric stapling procedure. N o complications seen directly as a result of the surgery. Moderate patchy erythema seen in the body and antrum. Biopsies taken. In the upper body of the stomach, there was a small angiodysplasia. Th is was ablated with APC with successful results. Duodenum: The bulb and second portion appeared nor mal. Complications: None. Tolerance To Anesthesia: Excellent. Postoperative Diagnoses: Hiatal hernia, gastritis, gastric AVM, status post ablation. Plan: 1.Await pathology results. 2.Can switch to oral PPI. Start on full liquid diet, advance as tolerated. 3.Continue workup for anemia of chronic disease. She can follow up in the GI Clinic for further inv estigation including outpatient colonoscopy. There does not seem to be any active ongoing GI issue. No active bleeding or diarrhea. She does to have urosepsis, which needs to be treated. I have discussed this case already with Dr. Maloney. Follow up in the GI clinic in 1 to 2 weeks. US/MODL Voice ID: [id number] Report ID: [id number]
[2018-07-23] MEDS: PROMOD 30 ML DOSE PO SCH (21:57)
[2018-07-24] MEDS: NA CHLORIDE 0.9% 1,000 ML IV SCH ×4 (00:29→21:07)
[2018-07-24] MEDS: METRONIDAZOLE 500mg IVPB 500 MG/100 ML BAG IV SCH ×4 (00:29→23:54)
[2018-07-24] MEDS: HYDROCODONE/APAP 10/325 TAB PO PRN ×4 (04:20→18:18)
[2018-07-24] MEDS: INSULIN -REGULAR HUMAN 50 UNIT/0.5 ML ML SQ SCH ×3 (07:30→16:30)
[2018-07-24] MEDS: PANTOPRAZOLE 40 MG INJ IVP SCH ×2 (08:13→21:05)
[2018-07-24] MEDS: CIPROFLOXACIN 400mg IV 400 MG/200 ML BAG IV SCH (08:13)
[2018-07-24] MEDS: PROMOD 30 ML DOSE PO SCH ×2 (09:00→21:06)
[2018-07-24 09:27] LABS: Absolute Lymphocytes (CBC) 1.7 K/uL (0.7-4.9); Absolute Neutrophil 7.1 K/uL (1.8-8.0); Basophils % 0.4 % (0-1.3); Eosinophils % 1.2 % (0-4.4); Hematocrit 25.9 % (36.0-45.0); Lymphocytes % 17.2 % (15.3-44.8); MCH 27.7 pg (27.0-35.0); MCV 86.8 fL (80-100); MPV 8.2 fL (7.6-11.3); Monocytes % 10.4 % (3.3-12.3); RBC Red Blood Cell Count 2.99 M/uL (3.86-4.86)
[2018-07-24 09:51] LABS: Albumin 2.6 g/dL (3.4-5.0); Bilirubin Total 0.2 mg/dL (0.2-1.0); Potassium 5.2 mmol/L (3.5-5.1); Protein, Total 5.7 g/dL (6.4-8.2)
[2018-07-24] MEDS ORDERED: DOCUSATE NA 100 MG CAP PO PRN (12:00)
--- NOTE | 2018-07-24 12:54 | P.PN ---
Subjective Date of Service: 07/24/18 Chief Complaint: Diarrhea, acute on CKD Patient seen and examined at bedside. Grandson at bedside. Case discussed with nursing staff. Patient states that she has not had an episode of bowel movement since 3 nights ago in the ER where it was noted to be bloody. She reports improved abdominal pain, nausea and vomiting. She denies any chest pain, fevers, chills overnight or any urinary symptoms. Review of Systems As per HPI Physical Examination - Vital Signs Temperature: 98.6 F Blood Pressure: 119/56 Pulse: 92 Respirations: 20 Pulse Ox (%): 98 - Physical Exam General: Alert, In no apparent distress HEENT: Atraumatic, PERRLA, EOMI Neck: Supple, JVD not distended Respiratory: Clear to auscultation bilaterally, Normal air movement Cardiovascular: Regular rate/rhythm, Normal S1 S2 Gastrointestinal: Normal bowel sounds, No tenderness Musculoskeletal: No tenderness Integumentary: No rashes Neurological: Normal speech, Normal tone, Normal affect - Studies Medications List Reviewed: Yes Assessment And Plan - Current Problems (Diagnosis) (1) UTI (urinary tract infection) Current Visit: Yes Status: Acute (2) Acute kidney injury superimposed on chronic kidney disease Onset Date: 07/23/18 Current Visit: Yes Status: Acute (3) Diarrhea Onset Date: 07/23/18 Current Visit: Yes Status: Acute Qualifiers: Diarrhea type: presumed infectious Qualified Code(s): R19.7 - Diarrhea, unspecified (4) Anemia Onset Date: 11/23/14 Current Visit: No Status: Acute (5) Hypertension Onset Date: 07/25/17 Current Visit: No Status: Chronic Qualifiers: Hypertension type: essential hypertension Qualified Code(s): I10 - Essential (primary) hypertension (6) Morbid obesity with BMI of 45.0-49.9, adult Onset Date: 07/25/17 Current Visit: No Status: Chronic - Plan - Abdominal pain/diarrhea: Patient admitted for abdominal pain with diarrhea. Possibility of infectious GI etiology. CT scan without any acute abnormality. GI studies pending but per patient, she has not had a bowel movement since 2 nights ago when she was in the ER. Will send his stool sample when patient has a bowel movement. Also check fecal occult blood. Full liquid diet, advance to GI soft today. continue IV antibiotics and IV fluids at this time. GI consulted. Recs appreciated EGD Performed today, with gastritis and small AVM, no active bleeding noted. Will continue protonix for now. - Anemia: Likely secondary to acute blood loss with hx of chronic anemia. Hemoglobin dropped from 9 to 7.6. Post transfusion, H&H has remained stable, 8.1 this afternoon. Will continue to monitor. - UTI: Continue IV antibiotics. Pending urine cultures. Will narrow down antibiotics depending on culture. - Acute kidney injury superimposed on chronic kidney disease: Creatinine remains stable from admission. Will continue IV antibiotics and monitor kidney function. - Hypertension: Stable, - Hyperkalemia: Resolved - COPD (chronic obstructive pulmonary disease): Continue supplemental oxygen. Patient on baseline of home oxygen. - Morbid obesity with BMI of 45.0-49.9, adult - leukocytosis: Resolved.
[2018-07-25] MEDS: HYDROCODONE/APAP 10/325 TAB PO PRN ×5 (00:44→22:40)
[2018-07-25] MEDS: PROMOD 30 ML DOSE PO SCH ×2 (09:00→21:17)
[2018-07-25] MEDS: NA CHLORIDE 0.9% 1,000 ML IV SCH ×3 (09:03→19:03)
[2018-07-25] MEDS: CIPROFLOXACIN 400mg IV 400 MG/200 ML BAG IV SCH (09:10)
[2018-07-25] MEDS: METRONIDAZOLE 500mg IVPB 500 MG/100 ML BAG IV SCH (09:13)
[2018-07-25] MEDS: PANTOPRAZOLE 40 MG INJ IVP SCH ×2 (09:15→21:17)
--- NOTE | 2018-07-25 14:56 | P.PN ---
Subjective Date of Service: 07/25/18 Chief Complaint: Diarrhea, acute on CKD Patient seen and examined at bedside. Grandson at bedside. Case discussed with nursing staff. Patient states that she has not had an episode of bowel movement since 3 nights ago in the ER where it was noted to be bloody. She reports resolved abdominal pain, nausea and vomiting. She denies any chest pain, fevers, chills overnight or any urinary symptoms. Review of Systems As noted above Physical Examination - Vital Signs Temperature: 98.4 F Blood Pressure: 147/63 Pulse: 99 Respirations: 19 Pulse Ox (%): 98 - Physical Exam General: Alert, In no apparent distress HEENT: Atraumatic, PERRLA, EOMI Neck: Supple, JVD not distended Respiratory: Clear to auscultation bilaterally, Normal air movement Cardiovascular: Regular rate/rhythm, Normal S1 S2 Gastrointestinal: Normal bowel sounds, No tenderness Musculoskeletal: No tenderness Integumentary: No rashes Neurological: Normal speech, Normal tone, Normal affect - Studies Medications List Reviewed: Yes Assessment And Plan - Current Problems (Diagnosis) (1) UTI (urinary tract infection) Current Visit: Yes Status: Acute (2) Acute kidney injury superimposed on chronic kidney disease Onset Date: 07/23/18 Current Visit: Yes Status: Acute (3) Diarrhea Onset Date: 07/23/18 Current Visit: Yes Status: Acute Qualifiers: Diarrhea type: presumed infectious Qualified Code(s): R19.7 - Diarrhea, unspecified (4) Anemia Onset Date: 11/23/14 Current Visit: No Status: Acute (5) Hypertension Onset Date: 07/25/17 Current Visit: No Status: Chronic Qualifiers: Hypertension type: essential hypertension Qualified Code(s): I10 - Essential (primary) hypertension (6) Morbid obesity with BMI of 45.0-49.9, adult Onset Date: 07/25/17 Current Visit: No Status: Chronic - Plan - Abdominal pain/diarrhea: Resolved Patient admitted for abdominal pain with diarrhea. Possibility of infectious GI etiology. CT scan without any acute abnormality. GI studies pending but per patient, she has not had a bowel movement since 2 nights ago when she was in the ER. Will send his stool sample when patient has a bowel movement. Also check fecal occult blood. Patient unable to produce a sample, still pending. Though less likely it is infectious. GI soft diet, advance as tolerated Discontinue IV antibiotics. Discontinue IV fluids. GI consulted. Recs appreciated EGD Performed at this stay, with gastritis and small AVM, no active bleeding noted. Will continue protonix for now. - Anemia: Likely secondary to acute blood loss with hx of chronic anemia. Hemoglobin dropped from 9 to 7.6. Post transfusion, H&H has remained stable, 8.1 this afternoon. Will continue to monitor. - UTI, secondary to ESBL: Start IV meropenem 1 g q. 8. Will need long-term IV antibiotics, for 2 weeks. PICC line insertion ordered. - Acute kidney injury superimposed on chronic kidney disease: Creatinine improve from admission. monitor kidney function. - Hypertension: Stable, - Hyperkalemia: Resolved - COPD (chronic obstructive pulmonary disease): Continue supplemental oxygen. Patient on baseline of home oxygen. - Morbid obesity with BMI of 45.0-49.9, adult - leukocytosis: Resolved.
[2018-07-25 15:03] VITALS: O2SAT 98
[2018-07-25] MEDS: ALBUTEROL 2.5 MG/3 ML NEB SOL NEB PRN (16:33)
[2018-07-25] MEDS: ONDANSETRON 4 MG/2 ML VIAL IV PRN (16:40)
[2018-07-25] MEDS ORDERED: Meropenem 1000 MG/VIAL IV SCH (17:00)
[2018-07-25 17:33] LABS: CKMB Creatine Kinase MB 2.3 ng/mL (0.3-3.6); Creatine Phosphokinase 52 U/L (26-192); Troponin I < 0.02 ng/mL (0.0-0.045)
[2018-07-25] MEDS: Meropenem 1,000 MG in NA CHLORIDE 0.9% 100 ML IV SCH (18:03)
[2018-07-26] MEDS: Meropenem 1,000 MG in NA CHLORIDE 0.9% 100 ML IV SCH ×2 (00:26→08:37)
[2018-07-26] MEDS: HYDROCODONE/APAP 10/325 TAB PO PRN ×2 (03:50→08:37)
[2018-07-26] MEDS: NA CHLORIDE 0.9% 1,000 ML IV SCH (05:03)
[2018-07-26 05:39] LABS: Absolute Lymphocytes (CBC) 1.9 K/uL (0.7-4.9); Absolute Monocytes 1.2 K/uL (0.1-1.3); Absolute Neutrophil 6.3 K/uL (1.8-8.0); Basophils % 0.4 % (0-1.3); Hematocrit 27.4 % (36.0-45.0); Lymphocytes % 19.5 % (15.3-44.8); MCH 27.6 pg (27.0-35.0); MCV 87.2 fL (80-100); MPV 8.1 fL (7.6-11.3); Monocytes % 12.3 % (3.3-12.3); RBC Red Blood Cell Count 3.15 M/uL (3.86-4.86)
[2018-07-26 05:43] LABS: Albumin 2.8 g/dL (3.4-5.0); Bilirubin Total 0.2 mg/dL (0.2-1.0); Potassium 5.2 mmol/L (3.5-5.1); Protein, Total 5.9 g/dL (6.4-8.2)
[2018-07-26 06:29] LABS: Blood Morphology Comment NOT SEEN (NOT SEEN); Platelet Estimate ADEQ; Urine White Blood Cell Casts OK
--- NOTE | 2018-07-26 08:03 | RAD REPORT ---
EXAM DESCRIPTION: RAD - Chest Single View - 07/26/2018 3:33 am CLINICAL HISTORY: PICC line placement A preliminary report was provided at the time of the study and reviewed prior to final report. COMPARISON: February 2018 chest film, June 2017 CT chest, June 2017 portable chest FINDINGS: Portable chest was obtained following placement of a right upper extremity PICC line. The catheter tip is in the distal SVC. Elevated right hemidiaphragm again noted. Focal mass density in the right apex is not clearly differe nt back to June 2017.
[2018-07-26] MEDS: PANTOPRAZOLE 40 MG INJ IVP SCH (08:39)
[2018-07-26] MEDS: PROMOD 30 ML DOSE PO SCH (08:50)
[2018-07-26 10:01] VITALS: BP 117/60; TEMP 98.4
--- NOTE | 2018-07-26 12:27 | EKG ---
Test Date: 2018-07-25 Test Time: 16:47:27 [employer]: DIEGO MEASUREMENT RESULTS: Intervals: Rate: 98 LA: 142 QRSD: 86 QT: 350 QTc: 446 [place]: P: 45 LA: 142 QRS: -11 T: 51 INTERPRETIVE STATEMENTS: Sinus rhythm with occasional premature ventricular complexes and fusion complexes Anteroseptal infarct, age undetermined Abnormal ECG Compared to ECG 07/21/2018 22:58:26 Fusion complex(es) now present Ventricular premature complex(es) now present Sinus tachycardia no longer present Atrial premature complex(es) no longer present Incomplete right bundle-branch block no longer present Left anterior fascicular block no longer present Myocardial infarct finding still present Electronically Signed On 07-26-18 12:25:46 CDT by Clay Leahy
== END 2018-07-26 10:30 | DRG 683 ==
LOC: ER 20:16 → 2ND 07-22 01:05
PROVIDERS: ADMIT Internal Medicine; ATTEND Internal Medicine
PROC: 30233N1 Transfusion of Nonautologous Red Blood Cells into Peripheral Vein, Percutaneous Approach (ICD-10-PCS; 2018-07-22)
PROC: 0DB78ZX Excision of Stomach, Pylorus, Via Natural or Artificial Opening Endoscopic, Diagnostic (ICD-10-PCS; 2018-07-23)
PROC: 0DB68ZX Excision of Stomach, Via Natural or Artificial Opening Endoscopic, Diagnostic (ICD-10-PCS; principal; 2018-07-23 11:30)
PROC: 02HV33Z Insertion of Infusion Device into Superior Vena Cava, Percutaneous Approach (ICD-10-PCS; 2018-07-25)
DX: N17.9 Acute kidney failure, unspecified (principal); Z68.42 Body mass index [BMI] 45.0-49.9, adult; D62 Acute posthemorrhagic anemia; N39.0 Urinary tract infection, site not specified; E87.5 Hyperkalemia; Z88.5 Allergy status to narcotic agent; Z88.0 Allergy status to penicillin; E78.5 Hyperlipidemia, unspecified; Z99.81 Dependence on supplemental oxygen; Z96.651 Presence of right artificial knee joint; Z87.891 Personal history of nicotine dependence; J41.0 Simple chronic bronchitis; E66.01 Morbid (severe) obesity due to excess calories; R19.7 Diarrhea, unspecified; I12.9 Hypertensive chronic kidney disease with stage 1 through stage 4 chronic kidney disease, or unspecified chronic kidney disease; N18.3 Chronic kidney disease, stage 3 (moderate); Z98.84 Bariatric surgery status; K44.9 Diaphragmatic hernia without obstruction or gangrene; K31.819 Angiodysplasia of stomach and duodenum without bleeding; K29.70 Gastritis, unspecified, without bleeding; B96.20 Unspecified Escherichia coli [E. coli] as the cause of diseases classified elsewhere
CPT/HCPCS: 36415; 36430; 71045; 74176; 80048; 80053; 81003; 81015; 82550; 82553; 82962; 83605; 83735; 84145; 84484; 85014; 85018; 85025; 86850; 86900; 86901; 87077; 87086; 87088; 87186; 88305; 88312; 90670; 93005; 94640; 94760; 96361; 96374; 96375; 97163; 99285; C9113; G0008; G0009; J0171; J0744; J2270; J2405; J7030; P9016; Q2035

== ENCOUNTER 2019-08-15 02:45 | Emergency (ER) | payer OTHER ==
[2019-08-15] MEDS ORDERED: ONDANSETRON 4 MG (ODT) TAB ONE (05:55)
[2019-08-15] MEDS ORDERED: HYDROCODONE/APAP 10/325 TAB ONE (05:55)
--- NOTE | 2019-08-15 06:23 | EDPHYS ---
Physician Documentation [facility] Name: Alia Cisneros Age: 84 yrs Sex: Female : 1935 Arrival Date: 08/15/2019 Time: 02:50 Bed 15 Private MD: ED Physician Walter Dyson HPI: 08/15 04:00 This 84 yrs old Female presents to ER via EMS with complaints of Fall Injury. tw4 04:00 Details of fall: The patient fell from seated position, off the edge of a bed. Onset: tw4 The symptoms/episode began/occurred just prior to arrival. Associated injuries: The patient sustained left iliac crest and left hip. Severity of symptoms: At their worst the symptoms were mild, in the emergency department the symptoms are unchanged. The patient has not experienced similar symptoms in the past. Historical: - Allergies: 03:01 Codeine; ea 03:01 NBN sleeping pill; ea 03:01 PENICILLINS; ea - Home Meds: 03:01 omeprazole 20 mg Oral cpDR 1 cap once daily [Active]; Mucinex DM 60-1,200 mg Oral TM12 ea twice a day [Active]; hydroxyzine HCl 25 mg Oral tab 4 times per day [Active]; equate non-drowsy allergy relief once a day [Active]; aspirin 81 mg Oral TbEC 1 tab once daily [Active]; acetazolamide 250 mg Oral tab once daily [Active]; - PMHx: 03:01 Renal Disease; Cancer, Lung; Hyperlipidemia; Cellulitis; CHF; COPD; Hypertension; R ea side of diaphragm paralyzed; - PSHx: 03:01 bunionectomy; cataract removal; Appendectomy; Tonsillectomy; right knee replacement; ea - Immunization history:: Adult Immunizations up to date. - Social history:: Smoking status: Patient/guardian denies using tobacco. - Ebola Screening: : No symptoms or risks identified at this time. ROS: 04:00 Constitutional: Negative for fever, chills, and weight loss, Eyes: Negative for injury, tw4 pain, redness, and discharge, Cardiovascular: Negative for chest pain, palpitations, and edema, Respiratory: Negative for shortness of breath, cough, wheezing, and pleuritic chest pain, Abdomen/GI: Negative for abdominal pain, nausea, vomiting, diarrhea, and constipation, Skin: Negative for injury, rash, and discoloration, Neuro: Negative for headache, weakness, numbness, tingling, and seizure. 04:00 MS/extremity: Positive for injury or acute deformity, decreased range of motion, of the left iliac crest and left hip. Exam: 04:00 Constitutional: This is a well developed, well nourished patient who is awake, alert, tw4 and in no acute distress. Head/Face: Normocephalic, atraumatic. Chest/axilla: Normal chest wall appearance and motion. Nontender with no deformity. No lesions are appreciated. Cardiovascular: Regular rate and rhythm with a normal S1 and S2. No gallops, murmurs, or rubs. Normal PMI, no JVD. No pulse deficits. Respiratory: Lungs have equal breath sounds bilaterally, clear to auscultation and percussion. No rales, rhonchi or wheezes noted. No increased work of breathing, no retractions or nasal flaring. Abdomen/GI: Soft, non-tender, with normal bowel sounds. No distension or tympany. No guarding or rebound. No evidence of tenderness throughout. Neuro: Awake and alert, GCS 15, oriented to person, place, time, and situation. Cranial nerves II-XII grossly intact. Motor strength 5/5 in all extremities. Sensory grossly intact. Cerebellar exam normal. Normal gait. 04:00 Musculoskeletal/extremity: Extremities: decreased ROM, ROM: limited active range of motion due to pain, limited passive range of motion due to pain, in the left iliac crest and left hip. Vital Signs: 02:53 BP 147 / 84; Pulse 97; Resp 18; Temp 98.1(O); Pulse Ox 100% on 2 lpm NC; Weight 104.33 ea kg; Height 5 ft. 3 in. (160.02 cm); 04:00 BP 154 / 64; Pulse 94; Resp 18; Pulse Ox 98% on R/A; ea 06:30 BP 152 / 59; Pulse 90; Resp 18; Temp 97.8; Pulse Ox 100% on R/A; ea 02:53 Body Mass Index 40.74 (104.33 kg, 160.02 cm) ea MDM: 02:56 Patient medically screened. 08/15 02:57 Order name: Hip Left 2 View XRAY 08/15 04:07 Order name: CT Pelvis wo Cont tw4 Administered Medications: 05:57 Drug: Eaton 10 mg-325 mg 1 tabs Route: PO; ak1 05:57 Drug: Zofran 4 mg Route: PO; ak1 05:58 CANCELLED (Duplicate Order): Zofran 4 mg IVP once; over 2 minutes ak1 06:13 Not Given (Other Intervention Used): morphine 4 mg IVP once; RASS on ADMIN: Combtv4, ea Very Agttd3, Agttd2, Rstlss1, AlertClm0, Drwsy-1, Lt Sdtn-2, Mod Sdtn-3, Dp Sdtn-4, UnArsble-5 Disposition: 08/15/19 06:23 Discharged to Home. Impression: LEFT SUPERIOR RAMUS FRACTURE. - Condition is Stable. - Medication Reconciliation Form, Thank You Letter, Antibiotic Education, Prescription Opioid Use form. - Follow up: Private Physician; When: Upon discharge from the Emergency Department; Reason: Recheck today's complaints, Continuance of care. - Problem is new. - Symptoms have improved. Signatures: Dispatcher [employer] EDMS Vita Liang RN RN ak1 Conchis Raygoza RN RN Walter Ybarra MD MD tw4 Corrections: (The following items were deleted from the chart) 05:58 05:57 Zofran 4 mg IVP once; over 2 minutes ordered. tw4 ak1 06:48 06:23 08/15/2019 06:23 Discharged to Home. Impression: LEFT SUPERIOR RAMUS FRACTURE. ea Condition is Stable. Forms are Medication Reconciliation Form, Thank You Letter, Antibiotic Education, Prescription Opioid Use. Follow up: Private Physician; When: Upon discharge from the Emergency Department; Reason: Recheck today's complaints, Continuance of care. Problem is new. Symptoms have improved. tw4
--- NOTE | 2019-08-15 06:23 | ER ---
Nurse's Notes [facility] Name: Alia Cisneros Age: 84 yrs Sex: Female : 1935 Arrival Date: 08/15/2019 Time: 02:50 Bed 15 Private MD: Diagnosis: LEFT SUPERIOR RAMUS FRACTURE Presentation: 08/15 02:50 Presenting complaint: Patient states: Family reports she had a fall about two hours ea ago, pt reported she fell on her bottom, denied LOC. Family reported pt was complaining of pain to left leg. EMS reported pt was sitting in chair upon their arrival, and was complaining of left leg pain. Transition of care: patient was not received from another setting of care. Onset of symptoms was August 15, 2019. Risk Assessment: Do you want to hurt yourself or someone else? Patient reports no desire to harm self or others. Initial Sepsis Screen: Does the patient meet any 2 criteria? No. Patient's initial sepsis screen is negative. Does the patient have a suspected source of infection? No. Patient's initial sepsis screen is negative. Care prior to arrival: None. 02:50 Method Of Arrival: EMS: [facility] ea 02:50 Acuity: DAFNE 3 ea Historical: - Allergies: 03:01 Codeine; ea 03:01 NBN sleeping pill; ea 03:01 PENICILLINS; ea - Home Meds: 03:01 omeprazole 20 mg Oral cpDR 1 cap once daily [Active]; Mucinex DM 60-1,200 mg Oral TM12 ea twice a day [Active]; hydroxyzine HCl 25 mg Oral tab 4 times per day [Active]; equate non-drowsy allergy relief once a day [Active]; aspirin 81 mg Oral TbEC 1 tab once daily [Active]; acetazolamide 250 mg Oral tab once daily [Active]; - PMHx: 03:01 Renal Disease; Cancer, Lung; Hyperlipidemia; Cellulitis; CHF; COPD; Hypertension; R ea side of diaphragm paralyzed; - PSHx: 03:01 bunionectomy; cataract removal; Appendectomy; Tonsillectomy; right knee replacement; ea - Immunization history:: Adult Immunizations up to date. - Social history:: Smoking status: Patient/guardian denies using tobacco. - Ebola Screening: : No symptoms or risks identified at this time. Screenin:53 Abuse screen: Denies threats or abuse. Nutritional screening: No deficits noted. ea Tuberculosis screening: No symptoms or risk factors identified. Fall Risk None identified. Assessment: 03:02 General: Appears in no apparent distress. Behavior is calm, cooperative, appropriate ea for age. Pain: Denies pain. Neuro: Level of Consciousness is awake, alert, obeys commands, Oriented to person, place. Cardiovascular: Patient's skin is warm and dry. Respiratory: Airway is patent Respiratory effort is even, unlabored, Respiratory pattern is regular, symmetrical. Derm: Skin is pink, warm \T\ dry. Musculoskeletal: Swelling present in right leg and left leg. 04:30 Reassessment: Patient and/or family updated on plan of care and expected duration. Pain ea level reassessed. Patient is alert, oriented x 3, equal unlabored respirations, skin warm/dry/pink. 05:00 Reassessment: Pt resting with eyes closed, respirations even and unlabored. Chest ea expansions even and unlabored. No s/s of pain or discomfort noted at this time. 06:28 Reassessment: Patient and/or family updated on plan of care and expected duration. Pain ea level reassessed. Awaiting on family to bring portable O2 for ride home. Vital Signs: 02:53 BP 147 / 84; Pulse 97; Resp 18; Temp 98.1(O); Pulse Ox 100% on 2 lpm NC; Weight 104.33 ea kg; Height 5 ft. 3 in. (160.02 cm); 04:00 BP 154 / 64; Pulse 94; Resp 18; Pulse Ox 98% on R/A; ea 06:30 BP 152 / 59; Pulse 90; Resp 18; Temp 97.8; Pulse Ox 100% on R/A; ea 02:53 Body Mass Index 40.74 (104.33 kg, 160.02 cm) ea ED Course: 02:50 Patient arrived in ED. aa1 02:50 Conchis Raygoza RN is Primary Nurse. ea 02:53 Triage completed. ea 02:54 Arm band placed on right wrist. Patient placed in an exam room, on a stretcher, on ea pulse oximetry. 02:54 Patient has correct armband on for positive identification. Bed in low position. Call ea light in reach. Side rails up X2. 02:56 Van Buren, Walter, MD is Attending Physician. tw4 03:37 Hip Left 2 View XRAY In Process Unspecified. EDMS 05:03 CT Pelvis wo Cont In Process Unspecified. EDMS 06:29 No provider procedures requiring assistance completed. Patient did not have IV access ea during this emergency room visit. Administered Medications: 05:57 Drug: [place] 10 mg-325 mg 1 tabs Route: PO; ak1 05:57 Drug: Zofran 4 mg Route: PO; ak1 05:58 CANCELLED (Duplicate Order): Zofran 4 mg IVP once; over 2 minutes ak1 06:13 Not Given (Other Intervention Used): morphine 4 mg IVP once; RASS on ADMIN: Combtv4, ea Very Agttd3, Agttd2, Rstlss1, AlertClm0, Drwsy-1, Lt Sdtn-2, Mod Sdtn-3, Dp Sdtn-4, UnArsble-5 Outcome: 06:23 Discharge ordered by . tw4 06:30 Condition: stable ea 06:48 Discharged to home via wheelchair. ea 06:48 Discharge instructions given to patient, family, Instructed on discharge instructions, follow up and referral plans. Demonstrated understanding of instructions, follow-up care. 06:48 Patient left the ED. ea Signatures: Dispatcher [employer] EDMS Lulu Ferreira, RN RN Vita Thompson, RN RN ak1 Conchis Raygoza, RN RN Walter Ybarra MD MD tw4
--- NOTE | 2019-08-15 11:01 | RAD REPORT ---
EXAM DESCRIPTION: RAD - Hip Left 2 View - 08/15/2019 3:36 am CLINICAL HISTORY: PAIN COMPARISON: Abdomen Pelvis Wo Contrast dated 08/11/2019 FINDINGS: Significant soft tissue artifact attenuation is present limiting quality of study. Vague l ucency is seen in the left superior pubic ramus. Recommend CT imaging followup.
[2019-08-15 12:59] VITALS: BP 152/59; TEMP 97.8; O2SAT 100
--- NOTE | 2019-08-17 13:13 | RAD REPORT ---
EXAM DESCRIPTION: CT PELVIS WITHOUT CONTRAST. CLINICAL HISTORY: Hip pain after fall. COMPARISON: CT abdomen and pelvis without contrast 08/11/2019. TECHNIQUE: Axial unenhanced CT imaging of the pelvis. Reformatted coronal and sagittal images review ed. Examination was performed according to our departmental dose-optimization program, which includes aut omated exposure control, adjustment of the mA and/or kV according to patient size and/or use of itera tive reconstruction technique. FINDINGS: BONES AND SOFT TISSUES: There is an acute fracture along the left superior pubic ramus wi thout displacement. This is in association with a 3.8 x 2.3 x 3.7 cm lytic soft tissue mass centered within the left superior pubic ramus. There is no acute fracture within the remaining bony pelvis. Pr oximal femurs are intact. No hip dislocation or effusion. Intact sacrum. Sacroiliac joints and symphy sis pubis are intact. RETROPERITONEAL VESSELS/NODES: Significant aorta and iliac artery atherosclerosis. No aneurysm. Infe rior vena cava is flattening contour indicative of hypovolemia. No adenopathy. BOWEL: The imaged segments of small and large bowel appear normal in caliber. Right lower quadrant a ppendix appears normal. There is mild scattered colonic and moderate sigmoid colon diverticulosis. No diverticulitis. MESENTERY/PERITONEUM: No ascites or free air. No pelvic adenopathy. BLADDER: Unremarkable bladder. GENITAL ORGANS: Uterus is surgically absent. Normal ovaries. PERITONEUM: No pelvic free fluid. There is no adenopathy. IMPRESSION: 1. 3.8 cm lytic mass centered within the left superior pubic ramus compatible with metas tatic or primary neoplasm until proven otherwise. There is an associated nondisplaced fracture along the superior margin of the left superior pubic ramus. 2. Colonic diverticulosis without diverticulitis. 3. Hypovolemia. Electronically signed by: Kassandra Landry DO 08/15/2019 5:14 AM TIME CLERK Due to temporary technical issues with the PACS/Fluency reporting system, reports are being signed by the in house radiologist as a courtesy to ensure prompt reporting. The interpreting radiologist is f ully responsible for the content of the report.
== END 2019-08-15 06:48 | disposition home or self-care (01) ==
LOC: ER 02:45
DX: S32.512A Fracture of superior rim of left pubis, initial encounter for closed fracture (principal); W06.XXXA Fall from bed, initial encounter; Y93.9 Activity, unspecified; Y92.9 Unspecified place or not applicable; I10 Essential (primary) hypertension; E78.5 Hyperlipidemia, unspecified; I50.9 Heart failure, unspecified; J44.9 Chronic obstructive pulmonary disease, unspecified; Z79.82 Long term (current) use of aspirin; Z88.0 Allergy status to penicillin; Z88.5 Allergy status to narcotic agent; Z88.8 Allergy status to other drugs, medicaments and biological substances; Z85.118 Personal history of other malignant neoplasm of bronchus and lung
CPT/HCPCS: 72192; 99284

== ENCOUNTER 2019-08-15 17:54 | Inpatient (IN) | payer OTHER ==
[2019-08-15] MEDS ORDERED: FENTANYL 25 MCG/PATCH TD ONE (18:20)
[2019-08-15] MEDS ORDERED: NA CHLORIDE 0.9% 1,000 ML ONE (18:20)
[2019-08-15 18:58] LABS: Absolute Lymphocytes (CBC) 1.2 K/uL (0.7-4.9); Basophils % 0.4 % (0-1.3); Hematocrit 37.1 % (36.0-45.0); Lymphocytes % 16.3 % (15.3-44.8); MPV 8.1 fL (7.6-11.3); RBC Red Blood Cell Count 4.67 M/uL (3.86-4.86)
[2019-08-15 19:11] LABS: Protime INR 1.01
[2019-08-15 19:12] LABS: Albumin 3.4 g/dL (3.4-5.0); Bilirubin Direct 0.1 mg/dL (0-0.2); Bilirubin Total 0.3 mg/dL (0.2-1.0); Potassium 4.9 mmol/L (3.5-5.1); Protein, Total 7.2 g/dL (6.4-8.2)
[2019-08-15 19:15] LABS: Phosphorus 4.2 mg/dL (2.5-4.9)
--- NOTE | 2019-08-15 19:31 | RAD REPORT ---
EXAM DESCRIPTION: RAD - Shoulder Right 2 View - 08/15/2019 7:18 pm CLINICAL HISTORY: PAIN COMPARISON: No comparisons FINDINGS: Mild degenerative changes are present. No fracture, dislocation or aggressive marrow maynor solis
[2019-08-15 19:37] LABS: Urine Blood 1+ (NEG); Urine Glucose NEGATIVE (NEG); Urine Protein NEGATIVE (NEG); Urine Specific Gravity 1.015 (1.005-1.030)
[2019-08-15 19:58] LABS: Urine Bacteria >50 /HPF (<20); Urine Culture Reflex Order NOT NEEDED
--- NOTE | 2019-08-15 21:01 | ER ---
Nurse's Notes [facility] Name: Alia Cisneros Age: 84 yrs Sex: Female : 1935 Arrival Date: 08/15/2019 Time: 18:05 Bed 28 Private MD: Diagnosis: Nondisplaced pubic ramus fracture;Weakness;Urinary tract infection, site not specified;Acute kidney injury;Metastatic lung cancer Presentation: 08/15 18:46 Presenting complaint: EMS states: Pt was discharged from the hospital this morning and tr5 they had a difficult time getting her into the car and she hurt her shoulder. Transition of care: patient was not received from another setting of care. Onset of symptoms was August 15, 2019. Risk Assessment: Do you want to hurt yourself or someone else? Patient reports no desire to harm self or others. Initial Sepsis Screen: Does the patient meet any 2 criteria? No. Patient's initial sepsis screen is negative. Does the patient have a suspected source of infection? No. Patient's initial sepsis screen is negative. Care prior to arrival: None. 18:46 Method Of Arrival: EMS: [facility] tr5 18:46 Acuity: DAFNE 3 tr5 Historical: - Allergies: 18:51 Codeine; tr5 18:51 NBN sleeping pill; tr5 18:51 PENICILLINS; tr5 - Home Meds: 18:51 acetazolamide 250 mg Oral tab once daily [Active]; aspirin 81 mg Oral TbEC 1 tab once tr5 daily [Active]; equate non-drowsy allergy relief once a day [Active]; hydroxyzine HCl 25 mg Oral tab 4 times per day [Active]; Mucinex DM 60-1,200 mg Oral TM12 twice a day [Active]; omeprazole 20 mg Oral cpDR 1 cap once daily [Active]; - PMHx: 18:51 Cancer, Lung; Cellulitis; CHF; COPD; Hyperlipidemia; Hypertension; R side of diaphragm tr5 paralyzed; Renal Disease; - Immunization history:: Adult Immunizations Adult Immunizations up to date. - Social history:: Smoking status: unknown. - Ebola Screening: : No symptoms or risks identified at this time. Screenin:00 Abuse screen: Denies threats or abuse. Nutritional screening: No deficits noted. tr5 Tuberculosis screening: No symptoms or risk factors identified. Fall Risk None identified. Assessment: 19:00 General: Appears in no apparent distress. Behavior is calm, cooperative, appropriate tr5 for age. Pain: Complains of pain in Right Shoulder. Neuro: Level of Consciousness is awake, alert, Oriented to person, place. Cardiovascular: Heart tones present Capillary refill < 3 seconds Pulses are all present. Respiratory: Airway is patent Respiratory effort is even, unlabored, Respiratory pattern is regular, symmetrical. GI: No signs and/or symptoms were reported involving the gastrointestinal system. : No signs and/or symptoms were reported regarding the genitourinary system. EENT: No signs and/or symptoms were reported regarding the EENT system. Derm: No signs and/or symptoms reported regarding the dermatologic system. Musculoskeletal: No signs and/or symptoms reported regarding the musculoskeletal system. Vital Signs: 18:51 BP 170 / 92; Pulse 76; Resp 20; Temp 98.2(O); Pulse Ox 99% on 2 lpm NC; tr5 20:00 BP 150 / 60; Pulse 94; Resp 16; Pulse Ox 99% on 2 lpm NC; tr5 21:00 BP 148 / 55; Pulse 95; Resp 19; Pulse Ox 99% on 2 lpm NC; tr5 ED Course: 18:05 Patient arrived in ED. em1 18:11 Priya Metz FNP-C [facility]. snw 18:11 Catalino Smith MD is Attending Physician. snw 18:16 Foreign Madden, RN is Primary Nurse. tr5 18:44 Initial lab(s) drawn, by ar, sent to lab. Inserted saline lock: 22 gauge in left hand, tr5 using aseptic technique. 18:49 Triage completed. tr5 18:51 Arm band placed on. tr5 19:00 Placed in gown. Bed in low position. Call light in reach. Side rails up X 1. tr5 19:19 Shoulder Right 2 View In Process Unspecified. EDMS 19:20 Montague cath inserted, using sterile technique, 16 Fr., by me, balloon inflated, to tr5 gravity drainage, urine specimen collected. 19:37 Cleaned of incontinence. Linen changed. mb4 20:57 Donny Galloway is Hospitalizing Provider. snw 21:00 No provider procedures requiring assistance completed. Patient admitted, IV remains in tr5 place. Administered Medications: 18:45 Drug: fentaNYL Patch (25 mcg/hr) 1 patches Route: Transdermal; Site: anterior chest tr5 wall; 19:40 Drug: NS 0.9% 1000 ml Route: IV; Rate: 75 ml/hr; Site: left hand; tr5 21:01 Drug: Rocephin 1 grams Route: IV; Rate: calculated rate; Site: left hand; tr5 21:30 Follow up: IV Status: Completed infusion; IV Intake: 50ml tr5 Intake: 21:30 IV: 50ml; Total: 50ml. tr5 Outcome: 21:00 Decision to Hospitalize by Provider. snw 21:00 Admitted to Med/surg accompanied by tech, via wheelchair, with chart, Report called to trSudheer Robertson RN 21:00 Condition: stable 21:00 Instructed on the need for admit. 23:02 Patient left the ED. tr5 Signatures: Dispatcher [employer] EDMS Priya Metz, LEEANNA-C FOOD SERVICE UTILITY WORKER-Dante Obrien em1 Cary Robledo mb4 Foreign Madden, RN RN tr5
--- NOTE | 2019-08-15 21:01 | EDPHYS ---
Physician Documentation [facility] Name: Alia Cisneros Age: 84 yrs Sex: Female : 1935 Arrival Date: 08/15/2019 Time: 18:05 Bed 28 Private MD: GREGORIO Physician Catalino Smith HPI: 08/15 19:05 This 84 yrs old Female presents to ER via EMS with complaints of generalized snw weakness. 19:05 Pt was seen last week by PCP, CT abd/pelvis and hip x-ray performed outpt. Pt to ED snw early this am for worsening hip pain and generalized weakness. 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 Onset: The symptoms/episode began/occurred gradually, and became worse and became persistent. Severity of symptoms: At their worst the symptoms were moderate incapacitating pt unable to transfer for adl's. It is unknown whether or not the patient has had similar symptoms in the past. as noted. Historical: - Allergies: 18:51 Codeine; tr5 18:51 NBN sleeping pill; tr5 18:51 PENICILLINS; tr5 - Home Meds: 18:51 acetazolamide 250 mg Oral tab once daily [Active]; aspirin 81 mg Oral TbEC 1 tab once tr5 daily [Active]; equate non-drowsy allergy relief once a day [Active]; hydroxyzine HCl 25 mg Oral tab 4 times per day [Active]; Mucinex DM 60-1,200 mg Oral TM12 twice a day [Active]; omeprazole 20 mg Oral cpDR 1 cap once daily [Active]; - PMHx: 18:51 Cancer, Lung; Cellulitis; CHF; COPD; Hyperlipidemia; Hypertension; R side of diaphragm tr5 paralyzed; Renal Disease; - Immunization history:: Adult Immunizations Adult Immunizations up to date. - Social history:: Smoking status: unknown. - Ebola Screening: : No symptoms or risks identified at this time. ROS: 19:04 Eyes: Negative for injury, pain, redness, and discharge, ENT: Negative for injury, snw pain, and discharge, Neck: Negative for injury, pain, and swelling, Cardiovascular: Negative for chest pain, palpitations, and edema, Respiratory: Negative for shortness of breath, cough, wheezing, and pleuritic chest pain, Abdomen/GI: Negative for abdominal pain, nausea, vomiting, diarrhea, and constipation, Back: Negative for injury and pain, : Negative for injury, bleeding, discharge, and swelling. 19:04 Skin: Negative for injury, rash, and discoloration. 19:04 Constitutional: Positive for generalized weakness, unable to get out of bed to bathroom. 19:04 MS/extremity: Positive for injury or acute deformity, pain, of the pelvis and left hip and left iliac crest and left shoulder. 19:04 Neuro: Positive for gait disturbance, weakness. Exam: 19:02 Head/Face: Normocephalic, atraumatic. Eyes: Pupils equal round and reactive to light, snw extra-ocular motions intact. Lids and lashes normal. Conjunctiva and sclera are non-icteric and not injected. Cornea within normal limits. Periorbital areas with no swelling, redness, or edema. ENT: Nares patent. No nasal discharge, no septal abnormalities noted. Tympanic membranes are normal and external auditory canals are clear. Oropharynx with mild redness, no swelling, or masses, exudates, or evidence of obstruction, uvula midline. Mucous membranes dry Neck: Trachea midline, no thyromegaly or masses palpated, and no cervical lymphadenopathy. Supple, full range of motion without nuchal rigidity, or vertebral point tenderness. No Meningismus. Chest/axilla: Normal chest wall appearance and motion. Nontender with no deformity. No lesions are appreciated. Cardiovascular: Regular rate and rhythm with a normal S1 and S2. No gallops, murmurs, or rubs. Normal PMI, no JVD. No pulse deficits. Respiratory: Lungs have equal breath sounds bilaterally, clear to auscultation and percussion. No rales, rhonchi or wheezes noted. No increased work of breathing, no retractions or nasal flaring. Abdomen/GI: Soft, non-tender, with normal bowel sounds. No distension or tympany. No guarding or rebound. No evidence of tenderness throughout. Back: No spinal tenderness. No costovertebral tenderness. Full range of motion. Skin: Warm, dry with normal turgor. Normal color with no rashes, no lesions, and no evidence of cellulitis. Neuro: Awake and alert, GCS 15, oriented to person, place, time, and situation. Cranial nerves II-XII grossly intact. generalized weakness 19:02 Constitutional: The patient appears alert, awake, frail, obese. 19:02 Musculoskeletal/extremity: Extremities: noted in the left iliac crest and left hip and left shoulder: decreased ROM, pain. Vital Signs: 18:51 BP 170 / 92; Pulse 76; Resp 20; Temp 98.2(O); Pulse Ox 99% on 2 lpm NC; tr5 20:00 BP 150 / 60; Pulse 94; Resp 16; Pulse Ox 99% on 2 lpm NC; tr5 21:00 BP 148 / 55; Pulse 95; Resp 19; Pulse Ox 99% on 2 lpm NC; tr5 MDM: 18:15 Patient medically screened. snw 21:00 Data reviewed: vital signs, nurses notes. Data interpreted: Pulse oximetry: on room air snw is 99 %. Interpretation: normal. Counseling: I had a detailed discussion with the patient and/or guardian regarding: the historical points, exam findings, and any diagnostic results supporting the discharge/admit diagnosis, lab results, radiology results, the need for further work-up and treatment in the hospital. Physician consultation: Donny Galloway was called at 20:30, was contacted at 20:30, regarding admission, to the telemetry unit. 08/15 18:14 Order name: Basic Metabolic Panel snw 08/15 18:14 Order name: CBC with Diff snw 08/15 18:14 Order name: Creatinine for Radiology; Complete Time: 19:21 snw 08/15 18:14 Order name: Hepatic Function; Complete Time: 19:21 snw 08/15 18:14 Order name: Urine Culture snw 08/15 18:14 Order name: Urine Microscopic Only; Complete Time: 20:01 snw 08/15 18:15 Order name: Basic Metabolic Panel; Complete Time: 19:21 EDMS 08/15 18:15 Order name: CBC with Automated Diff; Complete Time: 19:10 EDMS 08/15 18:24 Order name: Calcium snw 08/15 18:24 Order name: Phosphorus; Complete Time: 19:21 snw 08/15 18:24 Order name: PT-INR; Complete Time: 19:57 snw 08/15 18:24 Order name: Ptt, Activated; Complete Time: 19:57 snw 08/15 18:25 Order name: Calcium Level; Complete Time: 19:21 EDMS 08/15 19:35 Order name: Urine Dipstick--Ancillary (enter results); Complete Time: 19:43 ar5 08/15 18:14 Order name: IV Saline Lock; Complete Time: 18:44 snw 08/15 18:14 Order name: Labs collected and sent; Complete Time: 18:44 snw 08/15 18:14 Order name: [place]; Complete Time: 19:41 snw 08/15 18:14 Order name: Urine Dipstick-Ancillary (obtain specimen); Complete Time: 19:41 snw 08/15 18:54 Order name: Shoulder Right 2 View; Complete Time: 19:43 EDMS Administered Medications: 18:45 Drug: fentaNYL Patch (25 mcg/hr) 1 patches Route: Transdermal; Site: anterior chest tr5 wall; 19:40 Drug: NS 0.9% 1000 ml Route: IV; Rate: 75 ml/hr; Site: left hand; tr5 21:01 Drug: Rocephin 1 grams Route: IV; Rate: calculated rate; Site: left hand; tr5 21:30 Follow up: IV Status: Completed infusion; IV Intake: 50ml tr5 Disposition: 08/15/19 21:00 Hospitalization ordered by Donny Galloway for Inpatient Admission. Preliminary diagnosis are Nondisplaced pubic ramus fracture, Weakness, Urinary tract infection, site not specified, Acute kidney injury, Metastatic lung cancer. - Bed requested for Telemetry/MedSurg (Inpatient). - Status is Inpatient Admission. tr5 - Condition is Stable. - Problem is an acute exacerbation. - Symptoms are unchanged. UTI on Admission? Yes Addendum: 08/18/2019 07:06 Co-signature as Attending Physician, Catalino Smith MD I agree with the assessment and c jaquez plan of care. Signatures: Dispatcher [employer] [facility] Catalino Smith MD MD cha Therrien, Shelly, SUPERINTENDENT HORTICULTURE-C SUPERINTENDENT HORTICULTURE-Anumw Domenica Sears RN RN cg Foreign Madden RN RN tr5 Corrections: (The following items were deleted from the chart) 08/15 18:55 18:25 Shoulder Left 2 View+RAD.RAD.BRZ ordered. [facility] 22:30 21:00 Hospitalization Ordered by Donny Galloway for Inpatient Admission. Preliminary cg diagnosis is Nondisplaced pubic ramus fracture; Weakness; Urinary tract infection, site not specified; Acute kidney injury; Metastatic lung cancer. Bed requested for Telemetry/MedSurg (Inpatient). Status is Inpatient Admission. Condition is Stable. Problem is an acute exacerbation. Symptoms are unchanged. UTI on Admission? Yes. nolan 23:02 22:30 08/15/2019 21:00 Hospitalization Ordered by Donny Galloway for Inpatient tr5 Admission. Preliminary diagnosis is Nondisplaced pubic ramus fracture; Weakness; Urinary tract infection, site not specified; Acute kidney injury; Metastatic lung cancer. Bed requested for Telemetry/MedSurg (Inpatient). Status is Inpatient Admission. Condition is Stable. Problem is an acute exacerbation. Symptoms are unchanged. UTI on Admission? Yes.
[2019-08-15] MEDS ORDERED: CEFTRIAXONE/SWI 1gm 1 GM/10 ML SYR ONE (21:02)
--- NOTE | 2019-08-15 22:57 | P.HP ---
Certification for Inpatient Patient admitted to: Inpatient With expected LOS: >2 Midnights Practitioner: I am a practitioner with admitting privileges, knowledge of patient current condition, hospital course, and medical plan of care. Services: Services provided to patient in accordance with Admission requirements found in Title 42 Section 412.3 of the Code of Federal Regulations Patient History Date of Service: 08/16/19 Reason for admission: Generalize weakness, pelvic pain History of Present Illness: 84-year-old woman with a history of lung cancer with metastases presented to the emergency department due to generalized weakness, inability to walk or carry out her ADLS due to uncontrolled pain. Patient was in the emergency department in the early hours of this morning with a complaint of pelvic pain. Pelvic x-ray and pelvic CT demonstrated pelvic ramus fracture. She denied any fall at home. The patient was discharged home with [place] for pain. She could not walk when she got home. Family member brought her to the emergency department again due to uncontrolled pain. Her UA this visit is noted to be positive suggesting the presence of UTI. Her creatinine also noted to be elevated to 3.16 which is above her baseline suggesting JEFF. Patient is admitted for further management. Allergies Penicillins Allergy (Intermediate, Verified 07/22/18 02:06) Rash propoxyphene napsylate [From Darvocet-N 100] Allergy (Mild, Verified 07/22/18 02 :06) Itching zolpidem Allergy (Mild, Verified 07/22/18 02:06) Itching codeine Allergy (Verified 07/22/18 03:38) Itching/Hives/Rash - Past Medical/Surgical History Diabetic: No -: hypertension -: hyperlipidemia -: renal disease class 3 -: COPD -: psoriasis -: CHF -: Sleep apnea noncompliant -: Cellulitis -: Lung cancer -: tonsillectomy -: appy -: stomach stapling -: bunion removal -: right knee replacement -: cataracts removed -: partial hyst, L breast cyst removed, bladder suspension - Family History Mother -: Cancer Notes: pancreatic cancer Father -: Lung disease Notes: copd Sister -: Cancer Notes: BREAST CANCER Brother -: Cancer Notes: lung cancer son -: Other (see notes) Notes: pancreatic cancer - Social History Alcohol use: No CD- Drugs: No Caffeine use: Yes Review of Systems Other: General: No fever, no malaise, no unintentional weight loss. Eyes: No eye discharge, Respiratory: No cough, no shortness of breath. CVS: No chest pain, no palpitation, no lightheadedness. GI: No abdominal pain, no nausea no vomit, no constipation, no diarrhea. Genitourinary: No dysuria, no urinary frequency, no incontinence, no hematuria. Neurology: No headache, no asymmetric, weakness, no problem with swallowing. Except as documented, all other systems reviewed and negative. Physical Examination - Physical Exam General: In no apparent distress, Oriented x3 HEENT: Atraumatic, Normocephalic, PERRLA, Mucous membr. moist/pink, Sclerae nonicteric Neck: Supple, JVD not distended, No Thyromegaly Respiratory: Clear to auscultation bilaterally, Normal air movement Cardiovascular: No edema, Normal pulses, Regular rate/rhythm, Normal S1 S2, No murmurs Capillary refill: <2 Seconds Gastrointestinal: Normal bowel sounds, Soft and benign, Non-distended, No tenderness Musculoskeletal: No swelling Integumentary: Other (Small bruises noted pain left under arm.) Neurological: Normal speech, Cranial nerves 3-12 intact, Other (No asymmetric weakness) - Studies Laboratory Data (last 24 hrs) 08/15/19 18:45: PT 11.9, INR 1.01, APTT 32.7 08/15/19 18:45: Phosphorus 4.2 08/15/19 18:45: Creatinine 3.15 H 08/15/19 18:45: WBC 7.2, Hgb 11.8 L, Hct 37.1, Plt Count 213 08/15/19 18:45: Sodium 143, Potassium 4.9, BUN 78 H, Creatinine 3.16 H, Glucose 88, Total Bilirubin 0.3, AST 31, ALT 12, Alkaline Phosphatase 111 Assessment and Plan - Problems (Diagnosis) (1) UTI (urinary tract infection) Current Visit: Yes Status: Acute (2) Pelvic fracture Current Visit: Yes Status: Acute (3) Lung cancer Current Visit: Yes Status: Chronic (4) Impaired mobility Current Visit: Yes Status: Acute (5) COPD (chronic obstructive pulmonary disease) Onset Date: 07/23/18 Current Visit: No Status: Acute Qualifiers: COPD type: chronic bronchitis Chronic bronchitis type: simple Qualified Code(s): J41.0 - Simple chronic bronchitis (6) Acute kidney injury superimposed on chronic kidney disease Onset Date: 07/23/18 Current Visit: No Status: Acute - Plan Admit patient to the general medical floor Supportive measures with IV hydration. Follow serum creatinine with IV hydration Pain management with IV hydromorphone p.r.n. and [place] p.r.n. Consult to physical therapy and occupational therapy Disposition pending physical therapy evaluation Treat UTI with IV Levaquin Follow urine culture. Albuterol p.r.n. - Advance Directives Does patient have a Living Will: No Does patient have a Durable POA for Healthcare: No
[2019-08-15] MEDS ORDERED: Levofloxacin 750mg IV 750 MG/150 ML BAG IV ONE (23:00)
[2019-08-15] MEDS: NA CHLORIDE 0.9% 1,000 ML IV SCH (23:07)
[2019-08-15] MEDS ORDERED: ACETAMINOPHEN 500 MG TAB PO PRN (23:07)
[2019-08-15] MEDS ORDERED: ONDANSETRON 4 MG/2 ML VIAL IV PRN (23:07)
[2019-08-15] MEDS ORDERED: ALBUTEROL 2.5 MG/3 ML NEB SOL NEB PRN (23:07)
[2019-08-15 23:41] VITALS: BMI 42.5
[2019-08-15] MEDS: HYDROCODONE/APAP 5/325 MG TAB PO PRN (23:57)
[2019-08-16] MEDS: HEPARIN 5000 UNIT/ML 1 ML VIAL SQ SCH ×3 (01:20→16:23)
[2019-08-16] MEDS: HYDROMORPHONE HCL 0.5 MG/0.5 ML INJ IV PRN ×3 (01:21→16:21)
[2019-08-16] MEDS: HYDROCODONE/APAP 5/325 MG TAB PO PRN ×4 (05:08→19:52)
[2019-08-16 05:27] LABS: Absolute Lymphocytes (CBC) 1.5 K/uL (0.7-4.9); Basophils % 0.4 % (0-1.3); Hematocrit 30.4 % (36.0-45.0); Lymphocytes % 19.3 % (15.3-44.8); MPV 7.8 fL (7.6-11.3)
[2019-08-16 05:43] LABS: Potassium 4.9 mmol/L (3.5-5.1)
--- NOTE | 2019-08-16 11:46 | P.PN ---
Subjective Date of Service: 08/16/19 Chief Complaint: Generalize weakness, pelvic pain Still having pain Denies any chest discomfort Review of Systems 10-point ROS is otherwise unremarkable Musculoskeletal: Back Pain, Leg Pain Physical Examination - Vital Signs Temperature: 98.3 F Blood Pressure: 142/60 Pulse: 88 Respirations: 18 Pulse Ox (%): 98 - Physical Exam General: Alert, Mild distress, Obese HEENT: Atraumatic, Normocephalic Neck: Supple, 2+ carotid pulse no bruit Respiratory: Clear to auscultation bilaterally, Normal air movement Cardiovascular: Normal pulses, Regular rate/rhythm Capillary refill: <2 Seconds Gastrointestinal: Soft and benign, W/out hepatosplenomegaly, Tenderness ( Tenderness in the pelvic region) Musculoskeletal: Tenderness, Other (Decreased range of movement due to pain) Integumentary: No rashes Neurological: Abnormal gait Lymphatics: No axilla or inguinal lymphadenopathy Urinary: Other (No bladder distention) External genitalia: Deferred Rectal: Deferred - Studies Laboratory Data (last 24 hrs) 08/15/19 18:45: PT 11.9, INR 1.01, APTT 32.7 08/15/19 18:45: Phosphorus 4.2 08/15/19 18:45: Creatinine 3.15 H 08/15/19 18:45: WBC 7.2, Hgb 11.8 L, Hct 37.1, Plt Count 213 08/15/19 18:45: Sodium 143, Potassium 4.9, BUN 78 H, Creatinine 3.16 H, Glucose 88, Total Bilirubin 0.3, AST 31, ALT 12, Alkaline Phosphatase 111 Assessment & Plan - Problems (Diagnosis) (1) Impaired mobility Current Visit: Yes Status: Acute Plan: Will get a PT OT evaluation pain control may need placement (2) Pelvic fracture Current Visit: Yes Status: Acute Plan: Denies any fall or trauma possibly pathologic fracture monitor Closely Pain control (3) Lung cancer Current Visit: Yes Status: Chronic Plan: Continuing current measures Needs follow up with hematology oncology as outpatient (4) UTI (urinary tract infection) Current Visit: Yes Status: Acute Plan: Start on antibiotics Awaiting cultures Will change antibiotic as per the sensitivity (5) Acute kidney injury superimposed on chronic kidney disease Onset Date: 07/23/18 Current Visit: No Status: Acute Plan: Moderate hydration Will monitor renal parameters Nephrology consult if not getting better (6) Anemia Onset Date: 11/23/14 Current Visit: No Status: Chronic Plan: Anemia of chronic disease Will monitor CBC daily Transfuse prn Discharge Plan: Correction Plan to discharge in: 48 Hours Time Spent Managing Pts Care (In Minutes): 45
[2019-08-16] MEDS: NA CHLORIDE 0.9% 1,000 ML IV SCH ×2 (12:27→14:09)
[2019-08-17] MEDS: HEPARIN 5000 UNIT/ML 1 ML VIAL SQ SCH ×3 (01:24→16:16)
[2019-08-17] MEDS: HYDROCODONE/APAP 5/325 MG TAB PO PRN ×5 (01:24→20:28)
[2019-08-17] MEDS: NA CHLORIDE 0.9% 1,000 ML IV SCH ×2 (03:08→15:14)
[2019-08-17 08:21] LABS: Absolute Lymphocytes (CBC) 1.7 K/uL (0.7-4.9); Basophils % 0.7 % (0-1.3); Hematocrit 29.9 % (36.0-45.0); Lymphocytes % 23.6 % (15.3-44.8); MPV 7.7 fL (7.6-11.3); RBC Red Blood Cell Count 3.75 M/uL (3.86-4.86)
[2019-08-17 08:30] LABS: Potassium 5.2 mmol/L (3.5-5.1)
--- NOTE | 2019-08-17 09:35 | P.PN ---
Subjective Date of Service: 08/17/19 Chief Complaint: Generalize weakness, pelvic pain Subjective: Improving Still having pain but better than yesterday Denies any chest discomfort Review of Systems 10-point ROS is otherwise unremarkable General: Unremarkable ENT: Unremarkable Physical Examination - Vital Signs Temperature: 96.9 F Blood Pressure: 142/65 Pulse: 86 Respirations: 16 Pulse Ox (%): 98 - Physical Exam General: Alert, In no apparent distress HEENT: Atraumatic, Normocephalic Neck: Supple Respiratory: Clear to auscultation bilaterally, Normal air movement Cardiovascular: Normal pulses, Regular rate/rhythm Capillary refill: <2 Seconds Gastrointestinal: Soft and benign, W/out hepatosplenomegaly, Tenderness Musculoskeletal: No clubbing Integumentary: No rashes Neurological: Abnormal gait Lymphatics: No axilla or inguinal lymphadenopathy External genitalia: Other Rectal: Deferred - Studies Microbiology Data (last 24 hrs): 08/15/19 19:28 Catheterized Urine [place] Count - Final >100,000 CFU/ML. 08/15/19 19:28 Catheterized Urine - Final Escherichia Coli Assessment & Plan - Problems (Diagnosis) (1) Impaired mobility Current Visit: Yes Status: Acute Plan: PT OT evaluation pain control may need placement Discusses case management and family (2) Pelvic fracture Current Visit: Yes Status: Acute Plan: Denies any fall or trauma possibly pathologic fracture monitor Closely Pain control (3) Lung cancer Current Visit: Yes Status: Chronic Plan: Continuing current measures Needs follow up with hematology oncology as outpatient (4) UTI (urinary tract infection) Current Visit: Yes Status: Acute Plan: Start on antibiotics Awaiting cultures Will change antibiotic as per the sensitivity (5) Acute kidney injury superimposed on chronic kidney disease Onset Date: 07/23/18 Current Visit: No Status: Acute Plan: Moderate hydration Will monitor renal parameters Nephrology consult (6) Anemia Onset Date: 11/23/14 Current Visit: No Status: Chronic Plan: Anemia of chronic disease Will monitor CBC daily Transfuse prn Discharge Plan: Long-Term Plan to discharge in: 48 Hours Time Spent Managing Pts Care (In Minutes): 42
--- NOTE | 2019-08-17 15:15 | P.CNS ---
Date of Consult: 08/17/19 Reason for Consult: JEFF Requesting Physician: Juan Francisco Ledesma Chief Complaint: Generalize weakness, pelvic pain History of Present Illness: 84-year-old woman with a history of lung cancer with metastases presented to the emergency department due to generalized weakness, inability to walk or carry out her ADLS due to uncontrolled pain. Patient was in the emergency department in the early hours of this morning with a complaint of pelvic pain. Pelvic x-ray and pelvic CT demonstrated pelvic ramus fracture. She denied any fall at home. The patient was discharged home with Swiss for pain. She could not walk when she got home. Family member brought her to the emergency department again due to uncontrolled pain. Her UA this visit is noted to be positive suggesting the presence of UTI. Her creatinine also noted to be elevated to 3.16 which is above her baseline suggesting JEFF. Patient is admitted for further management. 19:05 This 84 yrs old Female presents to ER via EMS with complaints of generalized snw weakness. 19:05 Pt was seen last week by PCP, CT abd/pelvis and hip x-ray performed outpt. Pt to ED snw early this am for worsening hip pain and generalized weakness. 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 Onset: The symptoms/episode began/ occurred gradually, and became worse and became persistent. Severity of symptoms: At their worst the symptoms were moderate incapacitating pt unable to transfer for adl' s. It is unknown whether or not the patient has had similar symptoms in the past. as noted. Allergies Penicillins Allergy (Intermediate, Verified 07/22/18 02:06) Rash propoxyphene napsylate [From Darvocet-N 100] Allergy (Mild, Verified 07/22/18 02 :06) Itching zolpidem Allergy (Mild, Verified 07/22/18 02:06) Itching codeine Allergy (Verified 07/22/18 03:38) Itching/Hives/Rash Home medications list reviewed: Yes Home Medications: Baclofen 1 tab PO BID PRN 08/16/19 Benzonatate [Tessalon Perle*] 1 cap PO TID PRN 08/16/19 Cyclobenzaprine [Flexeril*] 1 tab PO BID PRN 08/16/19 Furosemide 1 tab PO DAILY 08/16/19 Hydrocodone/Acetaminophen [[place] 10-325 Tablet] 1 tab PO Q6H PRN 08/16/19 Omeprazole 1 tab PO DAILY 08/16/19 Ondansetron [Zofran (Odt)*] 8 mg PO DAILY PRN 08/16/19 Promethazine Suppos [Phenergan -Suppos*] 1 supp [place] Q12H 08/16/19 Spironolactone 1 tab PO DAILY 08/16/19 hydrOXYzine HCl [Atarax] 1 tab PO QID 08/16/19 - Past Medical/Surgical History Diabetic: No -: hypertension -: hyperlipidemia -: renal disease class 3 -: COPD -: psoriasis -: CHF -: Sleep apnea noncompliant -: Cellulitis -: Lung cancer -: tonsillectomy -: appy -: stomach stapling -: bunion removal -: right knee replacement -: cataracts removed -: partial hyst, L breast cyst removed, bladder suspension - Family History Mother Medical History: Cancer Notes: pancreatic cancer Father Medical History: Lung disease Notes: copd Sister Medical History: Cancer Notes: BREAST CANCER Brother Medical History: Cancer Notes: lung cancer son Medical History: Other (see notes) Notes: pancreatic cancer - Social History Smoking Status: Unknown if ever smoked Alcohol use: No CD- Drugs: No Caffeine use: Yes Place of Residence: Home Review of Systems 10-point ROS is otherwise unremarkable General: Weakness, Malaise Respiratory: SOB with Excertion Musculoskeletal: Shoulder Pain, Leg Pain Neurological: Weakness Physical Examination Temp Pulse Resp BP Pulse Ox 96.9 F 86 16 142/65 H 98 08/17/19 12:48 08/17/19 12:48 08/17/19 12:48 08/17/19 12:48 08/17/19 12:48 General: In no apparent distress, Oriented x3, Cooperative HEENT: Normocephalic, Mucous membr. moist/pink Neck: Supple Respiratory: Clear to auscultation bilaterally, Normal air movement Cardiovascular: No edema, Regular rate/rhythm, No rubs Gastrointestinal: Soft and benign, Non-distended, No guarding Musculoskeletal: No clubbing, No contractures Integumentary: No rashes, No cyanosis Neurological: Normal speech Blood work reviewed in the chart. Serum creatinine 1.56 Imagings Data: EXAM DESCRIPTION: RAD - Shoulder Right 2 View - 08/15/2019 7:18 pm CLINICAL HISTORY: PAIN COMPARISON: No comparisons FINDINGS: Mild degenerative changes are present. No fracture, dislocation or aggressive marrow lesion. Conclusions/Impression: A/ JEFF improving with IVF. Hypernatremia. Hyperkalemia. CKD III HTN with CKD/ CHF. KYLE not on CPAP. Diastolic CHF, chronic. IFG. Anemia in chronic illness with iron deficiency. Acute E.coli cystitis. P/ Continue current POC and Medications. Change IVF to 1/2NS at 75. Continue harvey at this time. Continue abx. 2g potassium diet. Consider IV iron replacement. No NSAIDs. AM labs. Daily weight. Thank you kindly for the consultation. Case discussed with Dr. Ledesma.
[2019-08-17] MEDS ORDERED: NACHLORIDE 0.45% 1,000 ML IV SCH ×2 (16:00)
[2019-08-17] MEDS: NACHLORIDE 0.45% 1,000 ML IV SCH (16:17)
[2019-08-17] MEDS ORDERED: HYDRALAZINE HCL 20 MG/ML VIAL IV PRN (16:29)
[2019-08-17] MEDS ORDERED: Levofloxacin500mg IV 500 MG/100 ML BAG IV SCH (23:00)
[2019-08-18] MEDS: HYDROCODONE/APAP 5/325 MG TAB PO PRN ×5 (00:55→20:34)
[2019-08-18] MEDS: HEPARIN 5000 UNIT/ML 1 ML VIAL SQ SCH ×3 (00:56→17:45)
[2019-08-18] MEDS: NACHLORIDE 0.45% 1,000 ML IV SCH ×2 (05:12→18:40)
[2019-08-18 09:00] LABS: Absolute Lymphocytes (CBC) 1.8 K/uL (0.7-4.9); Basophils % 0.7 % (0-1.3); Hematocrit 30.6 % (36.0-45.0); Lymphocytes % 23.4 % (15.3-44.8); MPV 7.6 fL (7.6-11.3); RBC Red Blood Cell Count 3.85 M/uL (3.86-4.86)
[2019-08-18 09:11] LABS: Potassium 4.9 mmol/L (3.5-5.1)
--- NOTE | 2019-08-18 09:45 | P.PN ---
Subjective Date of Service: 08/18/19 Chief Complaint: Generalize weakness, pelvic pain Pain is controlled well Denies any chest discomfort Review of Systems 10-point ROS is otherwise unremarkable Physical Examination - Vital Signs Temperature: 97.0 F Blood Pressure: 135/60 Pulse: 78 Respirations: 16 Pulse Ox (%): 98 - Physical Exam General: Alert, In no apparent distress HEENT: Atraumatic, Normocephalic Neck: Supple Respiratory: Clear to auscultation bilaterally, Normal air movement Cardiovascular: Normal pulses, Regular rate/rhythm Capillary refill: <2 Seconds Gastrointestinal: Soft and benign, W/out hepatosplenomegaly Musculoskeletal: No clubbing, Tenderness Integumentary: No rashes Neurological: Normal strength at 5/5 x4 extr, Abnormal gait Lymphatics: No axilla or inguinal lymphadenopathy External genitalia: Deferred Rectal: Deferred - Studies Microbiology Data (last 24 hrs): 08/15/19 19:28 Catheterized Urine [place] Count - Final >100,000 CFU/ML. 08/15/19 19:28 Catheterized Urine - Final Escherichia Coli Assessment & Plan - Problems (Diagnosis) (1) Impaired mobility Current Visit: Yes Status: Acute Plan: PT OT evaluation pain control may need placement Discusses case management and family Awaiting placement (2) Pelvic fracture Current Visit: Yes Status: Acute Plan: Denies any fall or trauma possibly pathologic fracture monitor Closely Pain control (3) Lung cancer Current Visit: Yes Status: Chronic Plan: Continuing current measures Needs follow up with hematology oncology as outpatient (4) UTI (urinary tract infection) Current Visit: Yes Status: Acute Plan: Start on antibiotics Awaiting cultures Will change antibiotic as per the sensitivity (5) Acute kidney injury superimposed on chronic kidney disease Onset Date: 07/23/18 Current Visit: No Status: Acute Plan: Moderate hydration Will monitor renal parameters Nephrology consult (6) Anemia Onset Date: 11/23/14 Current Visit: No Status: Chronic Plan: Anemia of chronic disease Will monitor CBC daily Transfuse prn Discharge Plan: Halfway Plan to discharge in: 48 Hours Time Spent Managing Pts Care (In Minutes): 42
[2019-08-18] MEDS ORDERED: TRAMADOL HCL 50 MG TAB PO PRN (11:13)
--- NOTE | 2019-08-18 15:07 | P.DS ---
Admission Date: 08/15/19 Discharge Date: 08/19/19 Disposition: TRANSFER TO LONGTERM Discharge Condition: FAIR Reason for Admission: Generalize weakness, pelvic pain - Problems (1) Impaired mobility Status: Acute (2) Pelvic fracture Status: Acute (3) Lung cancer Status: Chronic (4) UTI (urinary tract infection) Status: Acute (5) Acute kidney injury superimposed on chronic kidney disease Onset Date: 07/23/18 Status: Acute (6) Anemia Onset Date: 11/23/14 Status: Chronic Brief History of Present Illness: 84-year-old woman with a history of lung cancer with metastases presented to the emergency department due to generalized weakness, inability to walk or carry out her ADLS due to uncontrolled pain. Patient was in the emergency department in the early hours of this morning with a complaint of pelvic pain. Pelvic x-ray and pelvic CT demonstrated pelvic ramus fracture. She denied any fall at home. The patient was discharged home with [place] for pain. She could not walk when she got home. Family member brought her to the emergency department again due to uncontrolled pain. Her UA this visit is noted to be positive suggesting the presence of UTI. Her creatinine also noted to be elevated to 3.16 which is above her baseline suggesting JEFF. Patient is admitted for further management. Hospital Course: Patient was admitted and was monitor under telemetry. pain was controlled medications and start on IV hydration. The renal parameters are improving. global marketing operations manager was consulted for possible placement. His urine culture was positive for E. coli and was started on antibiotics. Care was discussed with the family and the patient. Patient wanted to go to a facility as she cannot do her ADLs at home. she has been discharged with a SNF for further monitor and rehabilitation Vital Signs/Physical Exam: Temp Pulse Resp BP Pulse Ox 96.8 F 99 H 18 166/77 H 96 08/18/19 12:00 08/18/19 12:00 08/18/19 12:00 08/18/19 12:00 08/18/19 12:00 General: Alert, In no apparent distress HEENT: Atraumatic, Normocephalic Neck: Supple, 2+ carotid pulse no bruit Respiratory: Clear to auscultation bilaterally, Normal air movement Cardiovascular: Normal pulses, Regular rate/rhythm Gastrointestinal: Soft and benign, W/out hepatosplenomegaly Musculoskeletal: No clubbing Neurological: Abnormal gait Laboratory Data at Discharge: WBC 7.7 K/uL (4.3-10.9) 08/18/19 08:35 Hgb 9.8 g/dL (12.0-15.0) L 08/18/19 08:35 Hct 30.6 % (36.0-45.0) L 08/18/19 08:35 Plt Count 213 K/uL (152-406) 08/18/19 08:35 PT 11.9 SECONDS (9.5-12.5) 08/15/19 18:45 INR 1.01 08/15/19 18:45 APTT 32.7 SECONDS (24.3-36.9) 08/15/19 18:45 Sodium 141 mmol/L (136-145) 08/18/19 08:35 Potassium 4.9 mmol/L (3.5-5.1) 08/18/19 08:35 BUN 25 mg/dL (7-18) H 08/18/19 08:35 Creatinine 1.26 mg/dL (0.55-1.3) 08/18/19 08:35 Glucose 90 mg/dL (74-106) 08/18/19 08:35 Phosphorus 4.2 mg/dL (2.5-4.9) 08/15/19 18:45 Total Bilirubin 0.3 mg/dL (0.2-1.0) 08/15/19 18:45 AST 31 U/L (15-37) 08/15/19 18:45 ALT 12 U/L (12-78) 08/15/19 18:45 Alkaline Phosphatase 111 U/L (45-117) 08/15/19 18:45 Home Medications: Baclofen 1 tab PO BID PRN 08/16/19 Benzonatate [Tessalon Perle*] 1 cap PO TID PRN 08/16/19 Cyclobenzaprine [Flexeril*] 1 tab PO BID PRN 08/16/19 Furosemide 1 tab PO DAILY 08/16/19 Omeprazole 1 tab PO DAILY 08/16/19 Ondansetron [Zofran (Odt)*] 8 mg PO DAILY PRN 08/16/19 Promethazine Suppos [Phenergan -Suppos*] 1 supp [place] Q12H 08/16/19 Spironolactone 1 tab PO DAILY 08/16/19 hydrOXYzine HCl [Atarax] 1 tab PO QID 08/16/19 Codeine/APAP [Tylenol W/Codeine #3 tab] 1 tab PO Q6HP PRN #15 tab 08/18/19 Ketorolac [Toradol] 10 mg FT Q6H PRN #15 tab 08/18/19 Tramadol HCl [Ultram] 50 mg PO Q6H #15 tablet 08/18/19 levoFLOXacin [Levaquin*] 500 mg PO Q48H #5 tab 08/18/19 New Medications: Codeine/APAP [Tylenol W/Codeine #3 tab] 1 tab PO Q6HP PRN #15 tab PRN Reason: Pain Ketorolac [Toradol] 10 mg FT Q6H PRN #15 tab PRN Reason: Pain Scale 8-10 (Severe) levoFLOXacin [Levaquin*] 500 mg PO Q48H #5 tab Tramadol HCl [Ultram] 50 mg PO Q6H #15 tablet Diet: AHA Activity: Ad gina Followup: Donis Barnes DO [ACTIVE - CAN ADMIT] - 1-2 Weeks (mold filler- call to schedule an appointment) Time spent managing pt's care (in minutes): 38
[2019-08-18] MEDS ORDERED: CALCITROL 0.25 MCG CAP PO SCH (18:00)
--- NOTE | 2019-08-18 19:24 | P.PN ---
Date of Service: 08/18/19 Vital Signs Temp Pulse Resp BP Pulse Ox 97.0 F 78 16 148/86 H 98 08/18/19 16:35 08/18/19 16:35 08/18/19 16:35 08/18/19 17:00 08/18/19 16:35 Medications Acetaminophen (Tylenol -Extra Strength) 500 mg PO Q4HP PRN PRN Reason: TEMP > 100' F Stop: 09/14/19 23:08 Hydrocodone Bitart/Acetaminophen ([place] 5/325) 1 tab PO Q4H PRN PRN Reason: Pain scale 5-7 (Moderate) Stop: 09/14/19 23:08 Last Admin: 08/18/19 15:27 Dose: 1 tab Albuterol Sulfate (Proventil 0.083% Neb Soln) 2.5 mg NEB Q6HP PRN PRN Reason: SHORTNESS OF BREATH Stop: 09/14/19 23:08 Calcitriol (Rocaltrol) 0.5 mcg PO DAILY [facility] Stop: 09/17/19 18:01 Last Admin: 08/18/19 18:00 Dose: 0.5 mcg Heparin Sodium (Porcine) (Heparin 5,000 Units/Ml) 5,000 unit SQ Q8HR [facility] Stop: 09/15/19 01:01 Last Admin: 08/18/19 17:45 Dose: 5,000 unit Hydralazine HCl (Apresoline) 10 mg IV Q4HP PRN PRN Reason: Titrate to SBP (MUST DEFINE) Stop: 09/16/19 16:30 Last Admin: 08/17/19 17:04 Dose: 10 mg Hydromorphone HCl (Dilaudid) 0.5 mg IV Q4H PRN PRN Reason: Pain scale 5-7 (Moderate) Stop: 09/14/19 23:08 Last Admin: 08/16/19 16:21 Dose: 0.5 mg Sodium Chloride (Sodium Chloride 0.45%) 1,000 mls @ 75 mls/hr IV .[id number] [facility] Stop: 09/16/19 16:01 Last Admin: 08/18/19 05:12 Dose: Not Given Levofloxacin (Levaquin) 500 mg PO Q48H [facility] Stop: 09/18/19 09:01 Ondansetron HCl (Zofran) 4 mg IV Q6HP PRN PRN Reason: NAUSEA / VOMITING Stop: 09/14/19 23:08 Sodium Chloride (Normal Saline Flush) 10 ml IV BID DIANELYS Stop: 09/15/19 09:01 Last Admin: 08/18/19 08:09 Dose: 10 ml Tramadol HCl (Ultram) 50 mg PO Q6H PRN PRN Reason: Pain scale 2-4 (Mild) Stop: 09/17/19 11:14 Last Admin: 08/18/19 13:20 Dose: 50 mg Microbiology Results 08/15/19 19:28 Catheterized Urine [place] Count - Final >100,000 CFU/ML. 08/15/19 19:28 Catheterized Urine - Final Escherichia Coli Assessment/ Plan: Nephrology Feeling better today. CPS stable without CP or SOB. No acute events overnight. Vitals, medications, blood work and imaging reviewed in the chart. General: In no apparent distress, Oriented x3, Cooperative HEENT: Normocephalic, Mucous membr. moist/pink Neck: Supple Respiratory: Clear to auscultation bilaterally, Normal air movement Cardiovascular: No edema, Regular rate/rhythm, No rubs Gastrointestinal: Soft and benign, Non-distended, No guarding Musculoskeletal: No clubbing, No contractures Integumentary: No rashes, No cyanosis Neurological: Normal speech Blood work reviewed in the chart. Serum creatinine 1.26 Imagings Data: EXAM DESCRIPTION: RAD - Shoulder Right 2 View - 08/15/2019 7:18 pm CLINICAL HISTORY: PAIN COMPARISON: No comparisons FINDINGS: Mild degenerative changes are present. No fracture, dislocation or aggressive marrow lesion. Conclusions/Impression: A/ JEFF improving with IVF. Hypernatremia. Hyperkalemia. CKD III HTN with CKD/ CHF. KYLE not on CPAP. Diastolic CHF, chronic. IFG. Anemia in chronic illness with iron deficiency. Acute E.coli cystitis. P/ Continue current POC and Medications. Continue 1/2NS. Continue harvey at this time. Continue abx. 2g potassium diet. Consider IV iron replacement. No NSAIDs. AM labs. Daily weight.
[2019-08-18 21:33] VITALS: O2SAT 98
[2019-08-19] MEDS: HEPARIN 5000 UNIT/ML 1 ML VIAL SQ SCH (00:30)
[2019-08-19] MEDS: HYDROCODONE/APAP 5/325 MG TAB PO PRN ×2 (00:30→04:20)
[2019-08-19 01:24] VITALS: TEMP 97.1
[2019-08-19 06:04] LABS: Basophils % 0.6 % (0-1.3); Hematocrit 29.9 % (36.0-45.0); Lymphocytes % 23.9 % (15.3-44.8); MPV 7.7 fL (7.6-11.3); RBC Red Blood Cell Count 3.77 M/uL (3.86-4.86)
[2019-08-19 06:14] LABS: Potassium 4.9 mmol/L (3.5-5.1)
[2019-08-19] MEDS: NACHLORIDE 0.45% 1,000 ML IV SCH (06:35)
[2019-08-19] MEDS ORDERED: FENTANYL 50 MCG/PATCH TD ONE (07:27)
[2019-08-19 08:48] VITALS: BP 159/69
[2019-08-19] MEDS ORDERED: levoFLOXacin 500 MG TAB PO SCH (09:00)
--- NOTE | 2019-08-19 20:41 | P.PN ---
Date of Service: 08/19/19 Vital Signs Temp Pulse Resp BP Pulse Ox 97.1 F 82 17 159/69 H 99 08/19/19 08:00 08/19/19 08:00 08/19/19 08:00 08/19/19 08:00 08/19/19 08:00 Microbiology Results 08/15/19 19:28 Catheterized Urine [place] Count - Final >100,000 CFU/ML. 08/15/19 19:28 Catheterized Urine - Final Escherichia Coli Assessment/ Plan: Nephrology Feeling better today. CPS stable without CP or SOB. No acute events overnight. Vitals, medications, blood work and imaging reviewed in the chart. General: In no apparent distress, Oriented x3, Cooperative HEENT: Normocephalic, Mucous membr. moist/pink Neck: Supple Respiratory: Clear to auscultation bilaterally, Normal air movement Cardiovascular: No edema, Regular rate/rhythm, No rubs Gastrointestinal: Soft and benign, Non-distended, No guarding Musculoskeletal: No clubbing, No contractures Integumentary: No rashes, No cyanosis Neurological: Normal speech Blood work reviewed in the chart. Serum creatinine 1.26 Imagings Data: EXAM DESCRIPTION: RAD - Shoulder Right 2 View - 08/15/2019 7:18 pm CLINICAL HISTORY: PAIN COMPARISON: No comparisons FINDINGS: Mild degenerative changes are present. No fracture, dislocation or aggressive marrow lesion. Conclusions/Impression: A/ JEFF improving with IVF. Hypernatremia. Hyperkalemia. CKD III HTN with CKD/ CHF. KYLE not on CPAP. Diastolic CHF, chronic. IFG. Anemia in chronic illness with iron deficiency. Acute E.coli cystitis. P/ Continue current POC and Medications. Discontinue harvey and IVF. Continue abx. 2g potassium diet. Consider IV iron replacement. No NSAIDs. AM labs. Daily weight.
== END 2019-08-19 08:48 | DRG 690 ==
LOC: ER 17:54 → ERHOLD 22:18 → 4TH 22:42
PROVIDERS: ADMIT Internal Medicine; ATTEND Internal Medicine
DX: N39.0 Urinary tract infection, site not specified (principal); S32.9XXA Fracture of unspecified parts of lumbosacral spine and pelvis, initial encounter for closed fracture; I13.0 Hypertensive heart and chronic kidney disease with heart failure and stage 1 through stage 4 chronic kidney disease, or unspecified chronic kidney disease; I50.32 Chronic diastolic (congestive) heart failure; N17.9 Acute kidney failure, unspecified; E87.0 Hyperosmolality and hypernatremia; C34.90 Malignant neoplasm of unspecified part of unspecified bronchus or lung; C78.7 Secondary malignant neoplasm of liver and intrahepatic bile duct; B96.20 Unspecified Escherichia coli [E. coli] as the cause of diseases classified elsewhere; N18.3 Chronic kidney disease, stage 3 (moderate); E87.5 Hyperkalemia; G47.33 Obstructive sleep apnea (adult) (pediatric); R73.01 Impaired fasting glucose; D50.9 Iron deficiency anemia, unspecified; Z88.0 Allergy status to penicillin; Z74.09 Other reduced mobility; Z96.651 Presence of right artificial knee joint
CPT/HCPCS: 36415; 51702; 72192; 80048; 80076; 81003; 81015; 82310; 84100; 85025; 85610; 85730; 87077; 87086; 87088; 87186; 94760; 96365; 97110; 97116; 97161; 97530; 99284; 99285; J0360; J0696; J1170; J1644; J7030

== ENCOUNTER 2019-09-24 08:24 | Inpatient (IN) | payer OTHER ==
[2019-09-24 09:02] LABS: Absolute Lymphocytes (CBC) 1.7 K/uL (0.7-4.9); Basophils % 0.5 % (0-1.3); Lymphocytes % 19.9 % (15.3-44.8); RBC Red Blood Cell Count 4.31 M/uL (3.86-4.86)
[2019-09-24 09:13] LABS: ALT/SGPT 20 U/L (12-78); AST/SGOT 53 U/L (15-37); Albumin 3.4 g/dL (3.4-5.0); Alkaline Phosphatase 155 U/L (45-117); BUN Blood Urea Nitrogen 31 mg/dL (7-18); Bicarbonate 32 mmol/L (21-32); Bilirubin Direct 0.2 mg/dL (0-0.2); Bilirubin Total 0.5 mg/dL (0.2-1.0); Glucose Level 120 mg/dL (74-106); Lipase 98 U/L (73-393); NT PRO-BNP 389 pg/mL (<450); Potassium 4.4 mmol/L (3.5-5.1); Protein, Total 7.5 g/dL (6.4-8.2); Sodium Level 141 mmol/L (136-145); Troponin (Emerg Dept Use Only) < 0.02 ng/mL (0.0-0.045)
--- NOTE | 2019-09-24 09:23 | RAD REPORT ---
EXAM DESCRIPTION: RAD - Chest Single View - 09/24/2019 9:06 am CLINICAL HISTORY: CHEST PAIN Chest pain. COMPARISON: Chest Single View dated 07/26/2018; Chest Single View dated 03/24/2018; Chest Single View dated 07/24/2017; Chest Single View dated 05/04/2017; Abdomen Pelvis Wo Contrast dated 08/11/2019; T horax Wo Con dated 06/25/2019 FINDINGS: Portable technique limits examination quality. Elevated right hemidiaphragm is seen with right apical lung mass again noted. The heart is mildly pro minent in size. No displaced fractures.
--- NOTE | 2019-09-24 10:21 | RAD REPORT ---
EXAM DESCRIPTION: US - Abdomen Exam Limited - 09/24/2019 9:55 am CLINICAL HISTORY: abnormal lfts COMPARISON: ABDOMINAL EXAM COMPLETE dated 08/06/2014 FINDINGS: The gallbladder demonstrates several shadowing gallstones. No pericholecystic fluid or gal lbladder wall thickening. The common bile duct is normal measuring 6 mm. The liver demonstrates no findings of intrahepatic biliary dilatation. IMPRESSION: Cholelithiasis.
[2019-09-24] MEDS ORDERED: HYDROCODONE/APAP 10/325 TAB ONE (10:55)
--- NOTE | 2019-09-24 10:58 | ER ---
Nurse's Notes [facility] Name: Alia Cisneros Age: 84 yrs Sex: Female : 1935 Arrival Date: 09/24/2019 Time: 08:30 Bed 6 Private MD: Diagnosis: Chest pain, unspecified Presentation: 09/24 08:40 Presenting complaint: Patient states: Patient states she has been belching for the last vc four days and experiencing chest, neck, and back pain. 08:40 Acuity: DAFNE 3 vc 08:40 Transition of care: patient was received from another setting of care (long-term care facility), [facility]. Onset of symptoms was September 24, 2019. Risk Assessment: Do you want to hurt yourself or someone else? Patient reports no desire to harm self or others. Initial Sepsis Screen: Does the patient meet any 2 criteria? No. Patient's initial sepsis screen is negative. Does the patient have a suspected source of infection? No. Patient's initial sepsis screen is negative. Care prior to arrival: Medication(s) given: ASA, 325 mg, Nitroglycerin, x 3. 08:40 Method Of Arrival: EMS: [facility] vc Triage Assessment: 08:59 General: Appears in no apparent distress. Behavior is calm, cooperative. Pain: vc Complains of pain in Chest, neck, and back. Pain at worst was 10 out of 10 on a pain scale. Quality of pain is described as sharp, Pain began 4 days ago. Cardiovascular: Capillary refill < 3 seconds Patient's skin is warm and dry. Historical: - Allergies: 08:30 Codeine; aa5 08:30 PENICILLINS; aa5 08:30 PROPOXYPHENE; aa5 08:30 Zolpidem; aa5 08:30 Fish Containing Products; aa5 08:30 shrimp; aa5 - Home Meds: 09:19 tramadol 50 mg Oral tab 1 tab Q8H PRN [Active]; Lidocaine Patch 4% Left knee daily vc [Active]; trazodone 50 mg Oral tab 1 tab nightly [Active]; spironolactone 50 mg Oral tab 1 tab once daily [Active]; furosemide 40 mg oral tab 1 tab once daily for Renal Disease with Edema [Active]; [place] 10-325 mg Oral tab 1 tab every 6 hours for Pain [Active]; hydroxyzine HCl 50 mg oral tab 4 times per day for Anxiety [Active]; omeprazole 20 mg oral TbEC 20 mg daily for Gastroesophageal Reflux [Active]; ondansetron HCl 8 mg Oral tab 1 tab daily [Active]; Promethegan 25 mg Rectal supp 1 suppository 2 times per day [Active]; ketorolac 10 mg Oral tab 1 tab every 6 hours for Severe Pain [Active]; - PMHx: 09:08 Cancer, Lung; Cellulitis; CHF; COPD; Hyperlipidemia; Hypertension; R side of diaphragm vc paralyzed; Renal Disease; obstructive sleep apnea; Anxiety; Back pain; - Immunization history:: Adult Immunizations unknown. - Social history:: Smoking status: Patient/guardian denies using tobacco. - Family history:: not pertinent. - Ebola Screening: : No symptoms or risks identified at this time. - Hospitalizations: : No recent hospitalization is reported. Screenin:40 Abuse screen: Denies threats or abuse. Nutritional screening: No deficits noted. vc Tuberculosis screening: No symptoms or risk factors identified. Fall Risk IV access (20 points). Ambulatory Aid- None/Bed Rest/Nurse Assist (0 pts). Gait- Normal/Bed Rest/Wheelchair (0 pts) Mental Status- Oriented to own ability (0 pts). Total [place] Fall Scale indicates No Risk (0-24 pts). Assessment: 08:40 Pain: Pain does not radiate. vc 08:40 General: Appears in no apparent distress. comfortable, Behavior is calm, cooperative. vc Pain: Complains of pain in chest, back, and neck. Pain at worst was 10 out of 10 on a pain scale. Neuro: Level of Consciousness is awake, alert, obeys commands, Oriented to person, place, time. Cardiovascular: Patient's skin is warm and dry. Respiratory: Airway is patent Respiratory effort is even, unlabored. GI: Abdomen is round. : Redness noted to bilateral sides. EENT: No deficits noted. Derm: Bruising that is dark purple, on left knee Reports pain to her bottom when cleaned. 08:40 Derm: Skin is intact, Skin is dry. vc 09:40 Reassessment: Patient and/or family updated on plan of care and expected duration. Pain vc level reassessed. Patient is alert, oriented x 3, equal unlabored respirations, skin warm/dry/pink. daughter, Arabella, at bedside.. 10:40 Reassessment: Patient and/or family updated on plan of care and expected duration. Pain vc level reassessed. Patients brief changed and warm blanket given. Patient states symptoms have not improved. 11:32 Reassessment: Patient is laying with her eyes closed, resting. vc 12:30 Reassessment: Patient's brief changed with Tech assistance. Patient states that she is vc cold, warm blanket given. 13:30 Reassessment: Patient and/or family updated on plan of care and expected duration. Pain vc level reassessed. Patient is alert, oriented x 3, equal unlabored respirations, skin warm/dry/pink. Patient repositioned with pillow under right buttock. 14:20 Reassessment: Patient states her back is in severe pain, Dr. Ardon notified, new orders vc as follows, toradol 30mg IV push times one does now. TORB. Vital Signs: 08:30 BP 125 / 76; Pulse 91; Resp 20; Temp 97.8(O); Pulse Ox 98% on 2 lpm NC; Pain 10/10; vc 09:00 BP 122 / 81; Pulse 90; Resp 21; Pulse Ox 99% on 2 lpm NC; vc 10:05 BP 126 / 56; Pulse 77; Resp 18 S; Pulse Ox 100% on 2 lpm NC; jl7 11:00 BP 118 / 59; Pulse 77; Resp 20; Pulse Ox 100% on 2 lpm NC; vc ED Course: 08:30 Patient arrived in ED. aa5 08:30 Arm band placed on Patient placed in an exam room, on a stretcher. aa5 08:31 EKG done, by pc maintenance technician. reviewed by Sunil Fragoso MD. at1 08:32 Sunil Fragoso MD is Attending Physician. rn 08:35 Patient has correct armband on for positive identification. Placed in gown. Bed in low vc position. Call light in reach. Side rails up X2. truck driver heavy on. Pulse ox on. NIBP on. 08:40 Missed attempt(s): 22 gauge Bleeding controlled, band aid applied, catheter tip intact. vc Oxygen administration via nasal cannula \T\ 2L/min. 08:48 Mary Guillen RN is Primary Nurse. vc 08:50 Inserted saline lock: 20 gauge in right antecubital area, using aseptic technique. vc Blood collected. 08:53 X-ray completed. Portable x-ray completed in exam room. Patient tolerated procedure mh1 well. 08:59 Triage completed. vc 09:06 XRAY Chest (1 view) In Process Unspecified. EDMS 09:56 US Abdomen Limited In Process Unspecified. EDMS 10:57 Beth Ardon MD is Hospitalizing Provider. rn 12:20 Head of bed elevated. Diet tray given. jl7 14:15 No provider procedures requiring assistance completed. vc 14:15 Patient admitted, IV remains in place. vc Administered Medications: 10:58 Drug: [place] 10 mg-325 mg 1 tabs Route: PO; vc 10:58 Follow up: Response: RASS: Alert and Calm (0) vc 12:00 Follow up: Response: No adverse reaction; Pain is unchanged, physician notified vc 14:25 Drug: TORadol 30 mg Route: IVP; Site: right antecubital; vc 16:18 Follow up: Response: No adverse reaction; Other vc Outcome: 10:57 Decision to Hospitalize by Provider. rn 14:29 Admitted to Med/surg accompanied by tech, via stretcher, room 213, with oxygen, Report vc called to SANDEEP Sanchez 14:29 Condition: good 14:29 Instructed on the need for admit. vc 14:30 Patient left the ED. vc Signatures: Dispatcher [employer] EDDestini Khan 1 Sunil Fragoso MD MD rn Calderon, Audri, RN RN aa5 Radha Curtis, landscape specialist EKG Tat1 Augusto Campos RN RN jl7 Mary Guillen RN RN vc
--- NOTE | 2019-09-24 10:59 | EDPHYS ---
Physician Documentation [facility] Name: Alia Cisneros Age: 84 yrs Sex: Female : 1935 Arrival Date: 09/24/2019 Time: 08:30 Bed 6 Private MD: ED Physician Sunil Fragoso HPI: 09/24 08:35 This 84 yrs old Female presents to ER via Unassigned with complaints of Chest rn Pain. 08:35 The patient or guardian reports chest pain that is located primarily in the left chest. rn Onset: 4 day(s) ago. The pain radiates to the left shoulder, the left scapula. The chest pain is described as aching. Duration: The patient or guardian reports multiple episodes, that are intermittent. Modifying factors: The symptoms are alleviated by nothing. the symptoms are aggravated by nothing. Severity of pain: At its worst the pain was moderate in the emergency department the pain is unchanged. The patient has not experienced similar symptoms in the past. The patient has not recently seen a physician. Reports 4 days of left sided chest pain, radiates to left shoulder and shoulder blade, no fever/cough, denies previous heart attack, reports last stress test "a long time ago". Reports worse with movement. No trauma. Denies previous blood clot. + lung cancer. . Historical: - Allergies: 08:30 Codeine; aa5 08:30 PENICILLINS; aa5 08:30 PROPOXYPHENE; aa5 08:30 Zolpidem; aa5 08:30 Fish Containing Products; aa5 08:30 shrimp; aa5 - Home Meds: 09:19 tramadol 50 mg Oral tab 1 tab Q8H PRN [Active]; Lidocaine Patch 4% Left knee daily vc [Active]; trazodone 50 mg Oral tab 1 tab nightly [Active]; spironolactone 50 mg Oral tab 1 tab once daily [Active]; furosemide 40 mg oral tab 1 tab once daily for Renal Disease with Edema [Active]; [place] 10-325 mg Oral tab 1 tab every 6 hours for Pain [Active]; hydroxyzine HCl 50 mg oral tab 4 times per day for Anxiety [Active]; omeprazole 20 mg oral TbEC 20 mg daily for Gastroesophageal Reflux [Active]; ondansetron HCl 8 mg Oral tab 1 tab daily [Active]; Promethegan 25 mg Rectal supp 1 suppository 2 times per day [Active]; ketorolac 10 mg Oral tab 1 tab every 6 hours for Severe Pain [Active]; - PMHx: 09:08 Cancer, Lung; Cellulitis; CHF; COPD; Hyperlipidemia; Hypertension; R side of diaphragm vc paralyzed; Renal Disease; obstructive sleep apnea; Anxiety; Back pain; - Immunization history:: Adult Immunizations unknown. - Social history:: Smoking status: Patient/guardian denies using tobacco. - Family history:: not pertinent. - Ebola Screening: : No symptoms or risks identified at this time. - Hospitalizations: : No recent hospitalization is reported. ROS: 08:35 Constitutional: Negative for fever, chills, and weight loss, Eyes: Negative for injury, rn pain, redness, and discharge, Neck: Negative for injury, pain, and swelling, Cardiovascular: Negative for palpitations, and edema, Respiratory: Negative for shortness of breath, cough, wheezing, and pleuritic chest pain, Abdomen/GI: Negative for abdominal pain, nausea, vomiting, diarrhea, and constipation, MS/Extremity: Negative for injury and deformity, Skin: Negative for injury, rash, and discoloration, Neuro: Negative for headache, weakness, numbness, tingling, and seizure. Exam: 08:35 Constitutional: This is a well developed, well nourished patient who is awake, alert, rn and in no acute distress. Head/Face: Normocephalic, atraumatic. ENT: MMM Chest/axilla: Normal chest wall appearance and motion. No crepitus Cardiovascular: Regular rate and rhythm. No pulse deficits. Respiratory: No increased work of breathing, no retractions or nasal flaring. Abdomen/GI: Soft, non-tender. No evidence of tenderness throughout. MS/ Extremity: Pulses equal, no cyanosis. Neurovascular intact. Full, normal range of motion. Equal circumference. Neuro: Awake and alert, GCS 15, oriented to person, place, time, and situation. Vital Signs: 08:30 BP 125 / 76; Pulse 91; Resp 20; Temp 97.8(O); Pulse Ox 98% on 2 lpm NC; Pain 10/10; vc 09:00 BP 122 / 81; Pulse 90; Resp 21; Pulse Ox 99% on 2 lpm NC; vc 10:05 BP 126 / 56; Pulse 77; Resp 18 S; Pulse Ox 100% on 2 lpm NC; jl7 11:00 BP 118 / 59; Pulse 77; Resp 20; Pulse Ox 100% on 2 lpm NC; vc MDM: 08:32 Patient medically screened. rn 10:55 Differential diagnosis: acute myocardial infarction, acute pericarditis, coronary rn artery disease congestive heart failure costochondritis, pleurisy, pneumonia, pneumothorax, pulmonary embolus. Data reviewed: vital signs, nurses notes, lab test result(s), EKG, radiologic studies, plain films, and as a result, I will admit patient. Counseling: I had a detailed discussion with the patient and/or guardian regarding: the historical points, exam findings, and any diagnostic results supporting the discharge/admit diagnosis, lab results, radiology results, the need for further work-up and treatment in the hospital. Response to treatment: the patient's symptoms have mildly improved after treatment, and as a result, I will admit patient. Admission orders: after a detailed discussion of the patient's condition and case, the admit orders are written by me. ED course: No clear etiology for chest pain, but feels different, unable to obtain PE protocol here due to renal insufficiency, will admit for chest pain rule out and possible VQ scan. . 09/24 08:33 Order name: Basic Metabolic Panel; Complete Time: 09:18 rn 09/24 08:33 Order name: CBC with Diff; Complete Time: 09:18 rn 09/24 08:33 Order name: LFT's; Complete Time: 09:18 rn 09/24 08:33 Order name: NT PRO-BNP; Complete Time: 09:18 rn 09/24 08:33 Order name: Troponin (emerg Dept Use Only); Complete Time: 09:18 rn 09/24 08:33 Order name: Lipase; Complete Time: 09:18 rn 09/24 08:33 Order name: XRAY Chest (1 view); Complete Time: 09:30 rn 09/24 08:33 Order name: EKG; Complete Time: 08:34 rn 09/24 08:33 Order name: Cardiac monitoring; Complete Time: 08:40 rn 09/24 08:33 Order name: EKG - Nurse/Tech; Complete Time: 08:40 rn 09/24 09:18 Order name: US Abdomen Limited; Complete Time: 10:30 rn 09/24 11:46 Order name: Diet Heart Healthy; Complete Time: 11:47 aa5 09/24 08:33 Order name: IV Saline Lock; Complete Time: 08:49 rn 09/24 08:33 Order name: Labs collected and sent; Complete Time: 08:49 rn 09/24 08:33 Order name: O2 Per Protocol; Complete Time: 08:40 rn 09/24 08:33 Order name: O2 Sat Monitoring; Complete Time: 08:40 rn Administered Medications: 10:58 Drug: [place] 10 mg-325 mg 1 tabs Route: PO; vc 10:58 Follow up: Response: RASS: Alert and Calm (0) vc 12:00 Follow up: Response: No adverse reaction; Pain is unchanged, physician notified vc 14:25 Drug: TORadol 30 mg Route: IVP; Site: right antecubital; vc 16:18 Follow up: Response: No adverse reaction; Other vc Disposition: 09/24/19 10:57 Hospitalization ordered by Beth Ardon for Observation. Preliminary diagnosis is Chest pain, unspecified. - Bed requested for Telemetry/MedSurg (observation). - Status is Observation. vc - Condition is Stable. - Problem is new. - Symptoms have improved. UTI on Admission? No Signatures: Dispatcher [employer] EDMS Sunil Fragoso MD MD rn Calderon, Audri, RN RN aa5 Dionne Horton Vanessa RN RN vc Corrections: (The following items were deleted from the chart) 12:49 10:57 Hospitalization Ordered by Beth Ardon MD for Observation. Preliminary diagnosis eb is Chest pain, unspecified. Bed requested for Telemetry/MedSurg (observation). Status is Observation. Condition is Stable. Problem is new. Symptoms have improved. UTI on Admission? No. rn 14:30 12:49 09/24/2019 10:57 Hospitalization Ordered by Beth Ardon MD for Observation. vc Preliminary diagnosis is Chest pain, unspecified. Bed requested for Telemetry/MedSurg (observation). Status is Observation. Condition is Stable. Problem is new. Symptoms have improved. UTI on Admission? No. eb
--- NOTE | 2019-09-24 11:58 | EKG ---
Test Date: 2019-09-24 Test Time: 08:27:46 Home Improvement Installer: NAHOMY MEASUREMENT RESULTS: Intervals: Rate: 88 ID: [id number] QRSD: 112 QT: 394 QTc: 476 [place]: P: 61 ID: [id number] QRS: -47 T: 25 INTERPRETIVE STATEMENTS: Normal sinus rhythm Incomplete right bundle branch block Left anterior fascicular block Possible Lateral infarct, age undetermined Abnormal ECG Compared to ECG 07/25/2018 16:47:27 Incomplete right bundle-branch block now present Left anterior fascicular block now present Fusion complex(es) no longer present Ventricular premature complex(es) no longer present Myocardial infarct finding still present Electronically Signed On 09-24-19 11:56:56 MINE SUPERVISOR by Clay Leahy
[2019-09-24] MEDS ORDERED: ACETAMINOPHEN 500 MG TAB ONE (13:46)
[2019-09-24] MEDS ORDERED: KETOROLAC 30 MG/ML INJ ONE (13:52)
[2019-09-24] MEDS ORDERED: NITROGLYCERIN 0.4 MG/TAB SL PRN (15:02)
[2019-09-24] MEDS ORDERED: ALBUTEROL 2.5 MG/3 ML NEB SOL NEB PRN (15:02)
[2019-09-24] MEDS ORDERED: ACETAMINOPHEN 500 MG TAB PO PRN (15:02)
--- NOTE | 2019-09-24 15:32 | RAD REPORT ---
EXAM DESCRIPTION: RAD - Shoulder Left 2 View - 09/24/2019 3:21 pm CLINICAL HISTORY: Left shoulder pain COMPARISON: CT chest June 25. TECHNIQUE: Internal and external rotation views of the left shoulder were obtained. FINDINGS: No fracture or dislocation of proximal humerus. Mild AC joint degenerative changes are pre sent. Acromial humeral joint space is normal. No abnormal soft tissue calcifications present. Left fi fth rib posterolateral fracture is identified. There is minimal displacement. Detail is somewhat limi andres. Given the history of right upper lobe mass, metastatic rib lesion is not excluded. IMPRESSION: No fracture, dislocation or acute left humerus finding. Posterolateral left fifth rib fracture. Given a history of lung mass and liver lesions, pathologic ri b fracture should be considered.
[2019-09-24] MEDS: ENOXAPARIN 40 MG/0.4 ML SQ SCH (15:36)
[2019-09-24] MEDS: LIDOCAINE 4% PATCH TOP SCH (15:36)
[2019-09-24 15:52] LABS: HDL Cholesterol 40 mg/dL (40-60); LDL Cholesterol, Calculated 107 (<130); Troponin I < 0.02 ng/mL (0.0-0.045)
[2019-09-24] MEDS ORDERED: KETOROLAC 10 MG TAB PO PRN (17:36)
[2019-09-24] MEDS ORDERED: KETOROLAC 10 MG PO PRN (17:49)
[2019-09-24 17:55] VITALS: BMI 44.1
[2019-09-24] MEDS: HYDROCODONE/APAP 10/325 TAB PO PRN (18:01)
[2019-09-24] MEDS ORDERED: HOME MED 1 EA UNK (Hydroxyzine Hcl [Atarax] 1 TAB) PO SCH (21:00)
[2019-09-24] MEDS: ATORVASTATIN 40 MG TAB PO SCH (21:56)
[2019-09-24] MEDS: hydrOXYzine HCL 25 MG TAB PO SCH (21:56)
[2019-09-24] MEDS: METOPROLOL TAR 25 MG TAB PO SCH (21:56)
[2019-09-24] MEDS: TRAZODONE 50 MG TABLET PO SCH (21:56)
--- NOTE | 2019-09-25 00:25 | HP ---
Date of Admission: 09/24/2019 Code Status: Full. Chief Complaint: Chest pain. History Of Present Illness: Patient is an 84-year-old female with past medical history of hypertensi on, hyperlipidemia, chronic kidney disease, COPD, congestive heart failure, who has been in the [facility], comes in with several-day episode of chest pain radiating to the left shoulder along with th e scapula in the neck. Patient also reports pain going towards her back. Denies any nausea, vomitin g, diaphoresis, palpitations. The patient's symptoms are constant, moderate, progressively worsening . In the ER, vital signs were stable, she was afebrile. Workup showed negative cardiac enzymes x1. EKG showed nonspecific changes. Imaging studies including chest x-ray were negative, did show the r ight apical mass, which is from prior history. Abdominal ultrasound showed cholelithiasis. Patient was given hydrocodone for pain and then referred for admission. When seen in the ER, she was awake, alert, and oriented x3. Elderly female, in some mild distress. Past Medical History: Hypertension, hyperlipidemia, chronic kidney disease stage 3, COPD, psoriasis, congestive heart failure, sleep apnea, noncompliant with CPAP, history of lung cancer. Surgical History: Tonsillectomy, appendectomy, stomach stapling, bunion removal, right knee replacem ent, cataract surgery, partial hysterectomy, left breast cyst removed, and bladder suspension. Allergies: TO PENICILLIN, PROPOXYPHENE, ZOLPIDEM, AND CODEINE. Social History: Patient denies any tobacco use, alcohol use, or illicit drug use. Family History: Mother has pancreatic cancer. Father had lung disease and COPD. Sister had breast cancer. Brother had lung cancer. Son has pancreatic cancer. Review of Systems: Ten-point systems reviewed, negative except as per HPI. Physical Examination: Vital Signs: Blood pressure 125/76, pulse 91, respirations 20, temperature 97.8, O2 98% on 2 L via n jere cannula. General: Awake, alert, and oriented x3. Elderly female, in some mild distress due to pain, ill-appe aring female. HEENT: Normocephalic, atraumatic. PERRLA. EOMI. Moist mucous membranes. Oropharynx is clear. Po or dentition. Conjunctivae anicteric. Neck: Supple. No JVD. Trachea midline. CV: S1, S2. Regular rate and rhythm. Peripheral pulses present. Respiratory: Somewhat diminished breath sounds. Overall, no wheezing or stridor. No use of accesso ry muscles. Gastrointestinal: Abdomen is soft, nontender, nondistended. Positive bowel sounds. No guarding or rigidity. Extremities: No clubbing or cyanosis. Patient has bilateral lower extremity edema 2+. No calf tend erness. Neuro: Cranial nerves 2 through 12 intact grossly. Patient has some generalized weakness in the lef t lower extremity due to osteoarthritis. Left lower extremity is 3/5, right lower extremity is 4+/5. Upper extremities are 5/5 strength. Sensation intact to light touch. Skin: Chronic venous stasis changes of bilateral lower extremities. No rashes. Musculoskeletal: Patient has decreased range of motion of the left shoulder due to pain, tenderness to palpation on the left lateral chest wall. Laboratory Data: Sodium 141, potassium 4.4, chloride 103, CO2 32, BUN 31, creatinine 1.95, glucose 1 20, calcium 9.3, AST 53, ALT 20, troponin less than 0.02, lipase 98. WBC 8.7, H and H 10.6 and 34, p latelets 249, neutrophils 68%. Imaging Studies: Chest x-ray shows elevated right hemidiaphragm seen with right apical lung mass aga in noted. Heart is mildly prominent in size. No displaced fractures. Abdominal ultrasound shows ch olelithiasis. No hepatobiliary dilatation. EKG shows incomplete right bundle branch block, left ant erior fascicular block. Normal sinus rhythm rate of 88. Assessment: An 84-year-old female with, 1.Chest pain, likely atypical. Patient seems to have musculoskeletal pain and left shoulder pain. We will continue with chest pain guidelines. We will obtain cardiac enzymes, EKG, and echocardiogram . Consult Cardiology. 2.Left shoulder pain. We will obtain 2 view x-ray likely due to osteoarthritis versus possible rota tor cuff pathology. Patient is receiving physical therapy at the residential, doing a lot of activi ties including reaching hand over the head. 3.Chronic kidney disease stage 3. We will consult the patient's pizzamaker, Dr. Barnes. Monitor creatinine level, seems to be around baseline. 4.Essential hypertension. Resume home medications as appropriate. 5.Mixed hyperlipidemia. We will continue home medications. 6.Chronic obstructive pulmonary disease, chronic bronchitis. Continue albuterol as needed. 7.Chronic respiratory failure. Patient is on 2 L via nasal cannula. 8.Obesity. 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 10.Psoriasis. 11.Congestive heart failure, chronic. Last known EF is 58%. 12.Sleep apnea, noncompliant. 13.History of lung cancer, x-ray shows mass stable from previous. [facility]. FRITZ Voice ID: [id number]
[2019-09-25] MEDS: HYDROCODONE/APAP 10/325 TAB PO PRN ×4 (03:38→21:39)
[2019-09-25 04:18] LABS: Absolute Lymphocytes (CBC) 1.9 K/uL (0.7-4.9); Basophils % 0.5 % (0-1.3); Lymphocytes % 24.2 % (15.3-44.8); MPV 8.2 fL (7.6-11.3); RBC Red Blood Cell Count 4.22 M/uL (3.86-4.86)
[2019-09-25 04:31] LABS: Potassium 4.7 mmol/L (3.5-5.1)
[2019-09-25] MEDS: PANTOPRAZOLE 40MG TABLET PO SCH (08:19)
[2019-09-25] MEDS: ASPIRIN EC 81 MG TAB PO SCH (08:19)
[2019-09-25] MEDS: LIDOCAINE 4% PATCH TOP SCH (08:21)
[2019-09-25] MEDS: METOPROLOL TAR 25 MG TAB PO SCH ×2 (08:21→21:00)
[2019-09-25] MEDS: ENOXAPARIN 40 MG/0.4 ML SQ SCH (08:21)
[2019-09-25] MEDS: hydrOXYzine HCL 25 MG TAB PO SCH ×4 (08:24→21:35)
[2019-09-25] MEDS: lisinopriL 10 MG TAB PO SCH ×2 (08:27→08:28)
[2019-09-25] MEDS ORDERED: SPIRONOLACTONE 25 MG TABLET PO SCH (09:00)
[2019-09-25] MEDS ORDERED: HOME MED 1 EA UNK (Omeprazole [Omeprazole] 1 TAB) PO SCH (09:00)
[2019-09-25] MEDS ORDERED: SPIRONOLACTONE PO SCH (09:00)
[2019-09-25] MEDS ORDERED: FUROSEMIDE 40 MG TABLET PO SCH (09:00)
[2019-09-25] MEDS: ONDANSETRON 4 MG/2 ML VIAL IV PRN (09:17)
--- NOTE | 2019-09-25 10:28 | RAD REPORT ---
EXAM DESCRIPTION: CT - CT CHEST,ABD,PELVIS W/O - 09/25/2019 9:53 am CLINICAL HISTORY: left rib fracture, hx of lung cancer, history of lung nodule, history of appendect afsaneh COMPARISON: CT chest June 25, CT abdomen and pelvis August 11 TECHNIQUE: Axial 5 millimeter thick images of the chest, abdomen and pelvis were obtained without or al or IV contrast. Sagittal and coronal reconstruction images were generated and reviewed. FINDINGS: Approximately 3.5 centimeter spiculated mass in the anterior superior right upper lobe is again identified. Central masses approximately 3.5 centimeter in size. There are areas of spiculated parenchyma that extend outward from this mass. This would account for the slight measurement differen belen between the current and May study. No change in size of the mass is suspected during this i nterval. No additional lung parenchymal mass or nodule seen. Fibrotic stranding changes are present. Small nonspecific mediastinal lymph nodes are present. Lymph node pattern is not clearly different ov er this interval. Right hemidiaphragm elevation is present. There are chronic atelectasis changes abutting the diaphrag matic pleura. No pleural effusion or pleural based mass. No pericardial thickening or effusion. No ch est wall mass or axillary lymphadenopathy. Poorly marginated areas of diminished attenuation are present in the dome of the right lobe liver. In the superior most aspect the lesion is grossly 2.6 cm in size. More medially in the dome there is a 3.6 area of abnormal diminished attenuation. Again this is poorly demarcated at the boundary. No othe r focal liver lesions seen. Lesions are not substantially different from August 11 imaging. Size va riation can easily occurred due to the poor demarcation of the margins. No focal splenic abnormality. No pancreatic abnormality. Gallbladder and biliary tree are normal. Lob ulation of kidneys noted without hydronephrosis. No acute renal finding. No bladder abnormality. Uter us is absent. Ovaries are absent or atrophic. No acute bowel finding. Gastric surgical changes are noted. No ascites or lymphadenopathy. No omental thickening. Bony degenerative changes are present. No clearly pathologic bone process. Dense arterial tree calcif ications are present. IMPRESSION: Malignant appearing mass in the apex of the right upper lobe is not clearly different fr om the May imaging. 2 metastatic lesions are present in the superior liver. These are poorly marginated. No gross change in size since mid July. Both metastatic lesions are superiorly positioned and not amenable to percutaneous biopsy at this fac ility. No other lung mass or abnormal lymphadenopathy. No abdominal ascites, lymphadenopathy or other acute abdominal or pelvic finding.
--- NOTE | 2019-09-25 12:20 | PN ---
Date of Progress Note: 09/25/2019 History Of Present Illness: Patient was seen and examined. Chart reviewed and case discussed with RN and Dr. Correia. The patient still complaining of some pain, undergoing echocardiogram this morning. Medications: List reviewed. Physical Examination: Vital Signs: Temperature 97.1, heart rate 54, blood pressure 122/58, respirations 18, O2 sat 98% on 2 L via nasal cannula. General: Awake, alert, oriented x3. Elderly female, morbidly obese. CV: S1, S2. Regular rate and rhythm. Peripheral pulses present. Respiratory: Diminished breath sounds at the bases. No wheezing or stridor. No use of accessory muscles. Gastrointestinal: Abdomen is soft, nontender, nondistended. Positive bowel sounds. Extremities: No clubbing or cyanosis. The patient has peripheral edema. Neurologic: Nonfocal. Musculoskeletal: Patient has tenderness to palpation on the left fifth rib. Laboratory Data: Sodium 139, potassium 4.7, chloride 104, CO2 of 33, BUN 40, creatinine 2.55, glucose 93, calcium 9.3. Triglycerides 186, cholesterol 184, LDL 107, HDL 40. WBC 8, H and H 10.4 and 33, platelets 230, neutrophils 60.8%. Shoulder x-ray shows no fracture or dislocation of the acute left humerus, finding posterior lateral left fifth rib fracture. CT scan of the chest, abdomen, pelvis shows malignant-appearing mass in the apex of the right upper lobe, not clearly different from May finding. Assessment And Plan: An 84-year-old female with. 1. Atypical chest pain. Cardiac enzymes are negative x3. This is likely related to musculoskeletal pain and left rib fracture and shoulder pain. Echocardiogram has been done. We will follow up with official report. 2. Left fifth rib fracture, mildly displaced. Orthopedic surgeon on-call recommends pain control, outpatient followup. CT scan reviewed. Patient does not have any pneumothorax or hemothorax. Patient has similar lesion to May regarding her lung cancer. This does not appear to be pathologic. The case was discussed with the radiologist. No history of falls. We will place lidocaine patch on the fifth rib. Continue with incentive spirometer and have her follow up with Pulmonary as an outpatient. 3. Chronic kidney disease, stage 3. Appreciate Nephrology input. Creatinine levels jumped up today. We will discontinue lisinopril renal dosing. 4. Essential hypertension, stable. 5. Mixed hyperlipidemia, stable. Patient has elevated triglycerides. Lipid panel reviewed. 6. Chronic obstructive pulmonary disease, chronic bronchitis. Continue with albuterol p.r.n. 7. Chronic respiratory failure. Patient is on 2 L of oxygen via nasal cannula , currently at baseline. 8. Morbid obesity. BMI 44. 9. 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 10. Psoriasis. 11. Congestive heart failure, chronic. We will follow up with latest echocardiogram. 12. Sleep apnea, obstructive, noncompliant. 13. History of lung cancer. Repeat CT scan shows stable mass from previous. She also has metastatic lesions to the liver. No change since mid July. Patient does not wish to pursue any further diagnosis. This was diagnosed 2 years ago. She has seen a vinyl flooring installer in the past. She does not wish to receive any chemotherapy or radiation therapy. She may be hospice appropriate, likely has stage III to IV lung cancer. 14. Deep vein thrombosis prophylaxis. Lovenox, renally dosed. 15. Plan, continue with pain management, incentive spirometer. Likely discontinue back to nursing facility with hospice if the patient agrees. Otherwise, outpatient followup with Pulmonology. /ADIEL Voice ID: [id number] Report ID: [id number] CHANTAL
--- NOTE | 2019-09-25 14:14 | ECHO ---
HEIGHT: 5 ft 3 in WEIGHT: 249 lb 0 oz DATE OF STUDY: 09/25/[address]: Beth Adron MD 2-DIMENSIONAL: YES M.MODE: YES DOPPLER: YES COLOR FLOW: YES TDS: YES PORTABLE: NO DEFINITY: NO BUBBLE STUDY: NO DIAGNOSIS: CHEST PAIN CARDIAC HISTORY: CATHERIZATION: NO SURGERY: NO PROSTHETIC VALVE: NO PACEMAKER: NO MEASUREMENTS (cm) DIASTOLIC (NORMALS) SYSTOLIC (NORMALS) IVSd 1.2 (0.6-1.2) LA Diam 4.3 (1.9-4.0) LVEF 61% LVIDd 4.1 (3.5-5.7) LVIDs 2.7 (2.0-3.5) %FS 32% LVPWd 1.2 (0.6-1.2) Ao Diam 2.9 (2.0-3.7) 2 DIMENSIONAL ASSESSMENT: RIGHT ATRIUM: NORMAL LEFT ATRIUM: DILATED RIGHT VENTRICLE: NORMAL LEFT VENTRICLE: NORMAL TRICUSPID VALVE: NORMAL MITRAL VALVE: MITRAL ANNULAR CALCIFICATION PULMONIC VALVE: NORMAL AORTIC VALVE: SCLEROSIS PERICARDIAL EFFUSION: NONE AORTIC ROOT: NORMAL LEFT VENTRICULAR WALL MOTION: NORMAL DOPPLER/COLOR FLOW: NORMAL COMMENTS: LEFT ATRIAL ENLARGEMENT. MITRAL ANNULAR CALCIFICATION. AORTIC SCLEROSIS. NORMAL LEFT VENTRICULAR SIZE AND FUNCTION. NO WALL MOTION ABNORMALITY. TECHNOLOGIST: Bridget VEGA
[2019-09-25] MEDS ORDERED: BISACODYL 10 MG RECTAL SUPP PR ONE (15:20)
[2019-09-25] MEDS: NA CHLORIDE 0.9% 1,000 ML IV SCH (16:22)
--- NOTE | 2019-09-25 20:13 | CON ---
Date of Consultation: 09/25/2019 Reason For Consult: Acute on chronic renal insufficiency. History Of Present Illness: Ms. Cisneros is an 84-year-old female with a past medical history signific ant for history of chronic kidney disease stage 4, congestive heart failure, COPD, presented to [facility] complaining of several days of chest pain with left shoulder pain. She has been admit andres for cardiac workup and also was noted to have worsening renal failure and hence Nephrology is balwinder sung consulted. Patient reports that her pain is better now. Past Medical History: Significant for history of hypertension, hyperlipidemia, CKD stage 4, COPD, ps oriasis, congestive heart failure, sleep apnea, and history of lung cancer. Surgical History: Significant for history of tonsillectomy, appendectomy, stomach stapling, right kn ee replacement, cataract surgery, partial hysterectomy, left breast cyst removal, and bladder suspens ion. Allergies: ALLERGIC TO PENICILLIN, PROPOXYPHENE, ZOLPIDEM, AND CODEINE. Social History: Denies any history of tobacco, alcohol, or drug use at this time. Family History: Significant for history of mother with history of pancreatic cancer and father with history of lung disease and COPD. Brother with lung cancer and sister with breast cancer. Review of Systems: Positive for chest pain with left shoulder pain, mostly localized in the left shoulder. Denies any s hortness of breath at this time. Denies any abdominal pain. Has been constipated. Denies any lower extremity swelling or weakness. Physical Examination: Vital Signs: At this time are showing temperature of 98.1, pulse rate of 59, respiratory rate of 18, and blood pressure of 114/54. General: She appears in no acute distress. HEENT: Atraumatic head. Lungs: Auscultation of lungs reveal bilateral equal air entry anteriorly with diminished breath soun ds at bases. Abdomen: Soft and nontender. Extremities: Showed trace amount of edema. Laboratory Data: Showing creatinine worsening to 2.5, but however, review of previous labs are rosa sung baseline creatinine around actually 2.5. CBC showing stable hemoglobin, hematocrit, and platelet count. Current Medications: Have been reviewed in detail. Impression: 1.Acute on chronic renal insufficiency secondary to possibly from acute tubular necrosis. We will g o ahead and discontinue the lisinopril, Lasix and spironolactone for right now. Continue with the me toprolol and monitor her renal function closely. We will go ahead and start her on gentle IV hydrati on as well. 2.Shoulder pain, etiology possibly from dislocation of the left humerus and posterolateral left fift h rib fracture and concern for pathological fracture at this time. 3.Chronic congestive heart failure, seems compensated at this time. 4.Hypertension. As discussed above, we will hold the lisinopril, Lasix and spironolactone for right now. 5.Chronic obstructive pulmonary disease, currently stable. Plan: Patient is overall stable at this time. However, her blood pressure seems to be running on th e lower side. We will go ahead and discontinue lisinopril and follow up on labs closely and continue IV hydration and follow up with a.m. labs. Continue all other medications. Avoid further hypotensi on, nephrotoxins. Thank you very much for this consultation. Please do not hesitate to call us with any questions or c oncerns. SUSAN/ADIEL Voice ID: [id number] Report ID: [id number]
[2019-09-25] MEDS: TRAZODONE 50 MG TABLET PO SCH (21:00)
[2019-09-25] MEDS: DOCUSATE NA 100 MG CAP PO SCH (21:00)
[2019-09-25] MEDS: ATORVASTATIN 40 MG TAB PO SCH (21:34)
--- NOTE | 2019-09-25 22:50 | CON ---
Admitted to Dr. Ardon's service on 09/24/2019. Reason For Consultation: Chest pain and chronic kidney disease. History Of Present Illness: Ms. Cisneros is 84, very much younger than her stated age as far as her lo oks are concerned. She is alert and oriented x3 and very much aware of her medical diagnosis. She h as a history of lung cancer stage IV that is metastatic. She is not undergoing any therapy. She has a history of congestive heart failure that is chronic diastolic, has a history of COPD, hypertension , dyslipidemia, chronic renal disease, sleep apnea, and obesity. She came in with chest pain, in the center of her chest, it radiates to the back and to the left neck without any nausea, vomiting, diap horesis, PND, orthopnea, pedal edema, palpitation, or syncope. Her pain is constant, not exertional, worse with moving her left arm. Denied any fevers or chills. Allergies: SHE IS ALLERGIC TO PENICILLIN, NAPROSYN, CODEINE, FISH, AND AMBIEN. Medications: At home include Lasix and Aldactone. Review of Systems: Negative. Social History: Negative. Family History: Negative. Physical Examination: General: Ms. Cisneros was in no acute distress. Vital Signs: Stable. She was afebrile. HEENT: Negative. Neck: Supple without any bruit, lymphadenopathy, JVD, or thyromegaly. Chest: Her chest was clear to auscultation and percussion. Cardiac: Revealed a regular rhythm and rate. No murmurs, gallops, or rubs. Abdomen: Benign, obese. Extremities: Revealed no clubbing, cyanosis, or edema. Skin: Dry and intact. Pulses were present distally bilaterally. Diagnostic Data: Chest x-ray shows a right apical lung mass. EKG showed incomplete right bundle-bra nch block. Creatinine is 1.95. Troponin and BNP were negative. Abdominal ultrasound showed gallsto flora. Impression And Plan: 1.Atypical chest pain, most likely pleuritic or musculoskeletal in nature. Echocardiogram is pendin g. We are not dealing with an acute coronary syndrome. Patient is 84, she has lung cancer that is n ot being treated, that is metastatic. I do not recommend any further cardiac workup from an invasive standpoint. 2.Gallstones. I do not think this is what is causing her symptoms. 3.Renal insufficiency stage III. 4.Metastatic lung cancer, not being treated. 5.Abnormal EKG. 6.History of chronic diastolic congestive heart failure. Echocardiogram is pending. 7.Chronic obstructive pulmonary disease. 8.Hypertension. 9.Dyslipidemia, well controlled. 10.Obesity. 11.Sleep apnea. We will see what her echo shows, but from my standpoint, she can go home whenever it is okay with Dr. Ardon unless the echo shows some significant pericardial effusion. MYRTLE/ADIEL Voice ID: [id number] Report ID: [id number]
[2019-09-26] MEDS: HYDROCODONE/APAP 10/325 TAB PO PRN ×2 (03:59→18:02)
[2019-09-26] MEDS: NA CHLORIDE 0.9% 1,000 ML IV SCH ×2 (04:00→15:36)
[2019-09-26 05:09] LABS: Albumin 2.8 g/dL (3.4-5.0); Bilirubin Total 0.4 mg/dL (0.2-1.0); Potassium 5.2 mmol/L (3.5-5.1); Protein, Total 6.2 g/dL (6.4-8.2)
[2019-09-26] MEDS ORDERED: ALBUMIN HUMAN 25% 100 ML IV ONE (05:12)
[2019-09-26 05:25] LABS: Absolute Lymphocytes (CBC) 2.3 K/uL (0.7-4.9); Basophils % 0.5 % (0-1.3); Hematocrit 32.6 % (36.0-45.0); Lymphocytes % 21.5 % (15.3-44.8); MPV 8.7 fL (7.6-11.3); RBC Red Blood Cell Count 4.12 M/uL (3.86-4.86)
[2019-09-26] MEDS ORDERED: SOD POLYSTYREN SUL 15 GM/60 ML UCUP PO ONE (08:19)
[2019-09-26] MEDS: DOCUSATE NA 100 MG CAP PO SCH ×2 (09:00→21:48)
[2019-09-26] MEDS: LIDOCAINE 4% PATCH TOP SCH ×2 (09:00→10:11)
[2019-09-26] MEDS: METOPROLOL TAR 25 MG TAB PO SCH ×2 (09:00→21:00)
[2019-09-26] MEDS: ONDANSETRON 4 MG/2 ML VIAL IV PRN (10:04)
[2019-09-26] MEDS: ENOXAPARIN 30 MG/0.3 ML SQ SCH (10:07)
[2019-09-26] MEDS: ASPIRIN EC 81 MG TAB PO SCH (10:08)
[2019-09-26] MEDS: PANTOPRAZOLE 40MG TABLET PO SCH (10:08)
[2019-09-26] MEDS: POLYETHYL GLY 3350 17 GM/DOSE PO SCH (10:09)
[2019-09-26] MEDS: hydrOXYzine HCL 25 MG TAB PO SCH ×4 (10:16→21:49)
[2019-09-26 15:03] LABS: Urine Appearance TURBID; Urine Bilirubin NEGATIVE (NEG); Urine Blood 3+ (NEG); Urine Color YELLOW; Urine Glucose NEGATIVE (NEG); Urine Protein 1+ (NEG); Urine Specific Gravity 1.015 (1.005-1.030); Urine pH 5.5 (5.0-7.0)
[2019-09-26 15:22] LABS: Urine Bacteria LOADED /HPF (<20); Urine Coarse Granular Casts 0-5 /LPF (NONE SEEN); Urine Culture Reflex Order REFLEXED; Urine RBC <5 /HPF (NONE SEEN)
--- NOTE | 2019-09-26 17:53 | PN ---
Subjective: Currently, patient lying in bed. She looks comfortable. Her daughter at the bedside. They have brought her x-ray from yesterday. She is still refusing biopsy or any oncology evaluation. She did have mild shoulder pain as well as rib pain. Review of Systems: Otherwise negative. Objective: Currently Vital Signs: Blood pressure 100/55, respiratory rate 20, pulse 61, temperature 98.4. General: Patient is alert and oriented x3. Does not look in any distress. HEENT: Atraumatic, normocephalic. PERRLA. Oral mucosa is moist. Neck: Supple. No JVD. No carotid bruits. Chest: Clear to auscultation. Good air entry. Decreased breath sounds at the bases. Poor effort. Heart: Regular rate and rhythm. S1, S2 normal. No gallop or murmur. Abdomen: Soft, nontender. No masses. Obese. Positive bowel sounds. Extremities: No clubbing, no cyanosis. She does have peripheral edema +1. Neurologic: Deferred. Musculoskeletal: Patient has mild tenderness upon palpation to the left fifth ray. Laboratory Data: Today showed CBC was normal except for hemoglobin of 10.1. Chemistry showed sodium of 140, potassium 5.2, BUN of 50, creatinine of 2.92, AST of 41, alkaline phosphatase 136. Assessment And Plan: This is an 84-year-old female: 1.Atypical chest pain, most likely secondary to her rib fracture. Cardiac enzyme negative. Cardiol ogy evaluation appreciated. Dr. Leahy is not planning any intervention as patient is most likely g oing on hospice. 2.Left fifth rib fracture, mildly displaced. Continue pain control. There is no pneumothorax or he mothorax on CAT scan. The patient again is highly suspected to have lung cancer with mets to the [facility] er, which is stage IV as well as to the bone. She is refusing palliative radiation. She is refusing oncology eval as well as biopsy, so we will consult hospice. We will discuss hospice role with leroy ent and daughter and they agree. 3.Chronic renal insufficiency with acute failure. Currently, creatinine is much worse. Nephrology is following. Potassium today is elevated. We will proceed with 1 dose of Kayexalate. Appreciate N ephrology input. 4.Hypertension, well controlled. 5.Hyperlipidemia with elevated triglycerides. If the patient going on hospice then that is going to be relevant. 6.Chronic obstructive pulmonary disease history. She is on p.r.n. albuterol. Continue her O2. 7.Morbid obesity. 8.Disuse myopathy. Patient apparently is wheelchair bound. 9.Obstructive sleep apnea. She is noncompliant with CPAP. 10.Deep vein thrombosis prophylaxis, on Lovenox. 11.Pain control. Hopefully when hospice comes on board, they will adjust her medication and she neli l be able to discharge home on hospice service. JANIE/ADIEL Voice ID: [id number] Report ID: [id number]
[2019-09-26] MEDS: CIPROFLOXACIN HCL 500 MG TAB PO SCH ×2 (18:01→21:00)
[2019-09-26] MEDS: TRAZODONE 50 MG TABLET PO SCH (21:48)
[2019-09-26] MEDS: ATORVASTATIN 40 MG TAB PO SCH (21:48)
[2019-09-27] MEDS: HYDROCODONE/APAP 10/325 TAB PO PRN ×3 (01:23→16:16)
[2019-09-27] MEDS: LIDOCAINE 4% PATCH TOP SCH ×2 (08:22→08:32)
[2019-09-27] MEDS: DOCUSATE NA 100 MG CAP PO SCH ×2 (08:23→20:34)
[2019-09-27] MEDS: ENOXAPARIN 30 MG/0.3 ML SQ SCH (08:23)
[2019-09-27] MEDS: POLYETHYL GLY 3350 17 GM/DOSE PO SCH (08:23)
[2019-09-27] MEDS: ASPIRIN EC 81 MG TAB PO SCH (08:23)
[2019-09-27] MEDS: hydrOXYzine HCL 25 MG TAB PO SCH ×4 (08:29→20:34)
[2019-09-27] MEDS: PANTOPRAZOLE 40MG TABLET PO SCH (08:30)
[2019-09-27] MEDS: METOPROLOL TAR 25 MG TAB PO SCH ×2 (08:30→20:34)
[2019-09-27] MEDS: CIPROFLOXACIN HCL 500 MG TAB PO SCH ×2 (08:30→20:34)
[2019-09-27 09:18] LABS: Absolute Lymphocytes (CBC) 1.5 K/uL (0.7-4.9); Basophils % 0.4 % (0-1.3); Hematocrit 31.3 % (36.0-45.0); Lymphocytes % 21.7 % (15.3-44.8); MPV 8.3 fL (7.6-11.3); RBC Red Blood Cell Count 3.94 M/uL (3.86-4.86)
[2019-09-27 09:32] LABS: Bilirubin Total 0.3 mg/dL (0.2-1.0); Potassium 5.1 mmol/L (3.5-5.1); Protein, Total 6.3 g/dL (6.4-8.2)
--- NOTE | 2019-09-27 09:55 | RAD REPORT ---
EXAM DESCRIPTION: US - Renal Ultrasound-Complete - 09/26/2019 9:40 pm CLINICAL HISTORY: Acute renal insufficiency COMPARISON: None. FINDINGS: The right kidney measures 8 cm with an increased echotexture. The left kidney measures 10 cm with an increased echotexture. Limited evaluation of portions of the l eft kidney secondary to overlying bowel gas Hydronephrosis is not seen. Limited evaluation the bladder as it is decompressed IMPRESSION: Increased renal echotexture consistent with parenchymal disease Limited evaluation portions of the left kidney secondary to overlying bowel gas
[2019-09-27] MEDS: NA CHLORIDE 0.9% 1,000 ML IV SCH ×2 (10:54→20:35)
[2019-09-27] MEDS: TRAZODONE 50 MG TABLET PO SCH (20:34)
[2019-09-27] MEDS: ATORVASTATIN 40 MG TAB PO SCH (20:34)
[2019-09-28] MEDS: HYDROCODONE/APAP 10/325 TAB PO PRN ×3 (00:18→13:32)
[2019-09-28 06:00] LABS: Absolute Lymphocytes (CBC) 1.8 K/uL (0.7-4.9); Basophils % 0.4 % (0-1.3); Hematocrit 30.1 % (36.0-45.0); Lymphocytes % 26.1 % (15.3-44.8); MPV 8.3 fL (7.6-11.3); RBC Red Blood Cell Count 3.79 M/uL (3.86-4.86)
[2019-09-28 06:14] LABS: Albumin 2.8 g/dL (3.4-5.0); Bilirubin Total 0.3 mg/dL (0.2-1.0); Potassium 5.4 mmol/L (3.5-5.1); Protein, Total 5.9 g/dL (6.4-8.2)
[2019-09-28] MEDS: hydrOXYzine HCL 25 MG TAB PO SCH ×3 (08:19→16:13)
[2019-09-28] MEDS: CIPROFLOXACIN HCL 500 MG TAB PO SCH (08:20)
[2019-09-28] MEDS: METOPROLOL TAR 25 MG TAB PO SCH (08:20)
[2019-09-28] MEDS: PANTOPRAZOLE 40MG TABLET PO SCH (08:20)
[2019-09-28] MEDS: DOCUSATE NA 100 MG CAP PO SCH (08:20)
[2019-09-28] MEDS: LIDOCAINE 4% PATCH TOP SCH ×2 (08:21→08:22)
[2019-09-28] MEDS: ENOXAPARIN 30 MG/0.3 ML SQ SCH (08:21)
[2019-09-28] MEDS: POLYETHYL GLY 3350 17 GM/DOSE PO SCH (08:21)
[2019-09-28] MEDS: ASPIRIN EC 81 MG TAB PO SCH (08:21)
[2019-09-28] MEDS ORDERED: SOD POLYSTYREN SUL 15 GM/60 ML UCUP PO ONE (08:36)
[2019-09-28 09:35] LABS: Blood Morphology Comment NOT SEEN (NOT SEEN); Platelet Estimate ADEQ
--- NOTE | 2019-09-28 10:28 | PN ---
Subjective: Currently, patient lying in bed. She looks comfortable. She continues to have some juan ulder pain, left side as well as rib pain on the left side. Requested a hospice evaluation yesterday , but is still pending. Objective: Currently Vital Signs: Blood pressure is 162/82, respiratory rate 18, pulse 71, temperat ure 97.4. General: She is alert and oriented x3. Does not look in any distress. HEENT: Atraumatic, normocephalic. PERRLA. Oral mucosa is moist. Neck: Supple. No JVD. No bruits. Chest: Clear to auscultation. Good air entry. No expiratory wheezing. She does have decreased barbara ath sounds at the bases as well. Heart: Regular rate and rhythm. S1, S2 normal. No gallop or murmur. Abdomen: Soft, nontender. No masses. Obese. Positive bowel sounds. Extremities: No clubbing or cyanosis. +1 edema. Musculoskeletal: Mild tenderness upon palpation on the left fifth rib area. Laboratory Data: Today CBC and CMP, both pending this morning, but UA from yesterday was positive an d the urine culture showed more than 100,000 colony. Assessment And Plan: 84-year-old female with an: 1.Atypical chest pain most likely secondary to her recurrent fracture. Cardiac enzymes were negativ e. Dr. Leahy not planning any further intervention given the fact that the patient going most like ly on hospice. 2.Left fifth rib fracture, mildly displaced, most likely secondary to demand ischemia from the lung mass. We will continue pain control. There is no pneumothorax or hemothorax on CT scan of the chest . Patient again highly suspected to have lung cancer with mets to the liver as well as a bone she co ntinued to refuse the biopsy. The Radiation Oncology and Medical Oncology eval after it was canceled yesterday due to a week and it will not happen until Saturday. 3.Chronic renal insufficiency with acute failure. Creatinine was worse yesterday. Nephrology is laura burnett. She is on IV hydration. Labs pending . Hyperkalemia was mild at 5.2. Patient r eceived 1 dose of yesterday. Potassium level today is pending. 4.History of hyperlipidemia with elevated triglycerides. there is any need go ing on hospice. 5.Urinary tract infection. Urine culture started yesterday 500 mg twice a day. 6.Chronic obstructive pulmonary disease. She is on p.r.n. albuterol as well as O2. 7.Disuse myopathy. Patient is wheelchair bound from home. 8.Obstructive sleep apnea. Patient is noncompliant with CPAP. Again that is not the event the leroy ent has been going on hospice. 9.Pain control. Continue pain medication and have to take over and will mention pain free. 10.Deep vein thrombosis prophylaxis on Lovenox. JANIE/ADIEL Voice ID: [id number] Report ID: [id number]
--- NOTE | 2019-09-28 15:23 | PN ---
Date of Progress Note: 09/25/2019 History Of Present Illness: Ms. Cisneros is 84, was seen on 09/24/2019 after being admitted by Dr. Eveline rhodes for chest pain and chronic kidney disease. She has metastatic lung cancer, history of COPD, conge stive heart failure, sleep apnea, and dyslipidemia. Echocardiogram was done to rule out any pericard ial effusion or congestive heart failure. Her echocardiogram showed aortic sclerosis, normal echocar diogram, otherwise, no wall motion abnormalities, no effusion, normal ejection fraction. We still fe el that her chest pain is atypical, probably secondary to metastatic lung cancer, COPD. No further p tristan from a cardiac standpoint. She can go home today. MYRTLE/ADIEL Voice ID: [id number] Report ID: [id number]
[2019-09-28 16:39] VITALS: O2SAT 98
[2019-09-28 18:07] VITALS: BP 134/62; TEMP 98.5
[2019-09-28] MEDS ORDERED: DOXYCYCLINE 100 MG CAP PO SCH (21:00)
--- NOTE | 2019-09-29 04:30 | PN ---
Date of Progress Note: 09/28/2019 Subjective: Patient is seen at the bedside. Patient is likely transitioning over to hospice/palliat ana care. She has no acute complaints at this time. Objective: Vital Signs: Reviewed. General: No acute distress. Heart: Regular rate and rhythm. No murmurs, rubs, gallops. Lungs: Decreased breath sounds at left base. Abdomen: Soft, nontender, nondistended. Extremities: 1+ edema. Laboratory Data: Reviewed. Impression: 1.Chronic kidney disease. 2.Hyperkalemia. 3.Hypertension. Plan: Patient's diet has been changed to a renal soft consistency diet. Patient will need to have s erial chemistries monitored. Please ensure the patient is on a low-potassium diet on the transition to home. Avoid all NSAIDs. Avoid all contrast. Continue current antihypertensive regimen. We will continue to follow. /ADIEL Voice ID: [id number] Report ID: [id number]
--- NOTE | 2019-09-29 05:36 | DS ---
Date of Discharge: 09/28/2019 Consultants: 1.Dr. Urban with Nephrology. 2.Dr. Leahy with Cardiology. Admitting Diagnoses: 1.Atypical chest pain. 2.Left shoulder pain. 3.Chronic kidney disease stage 3. 4.Essential hypertension. 5.Mixed hyperlipidemia. 6.Chronic obstructive pulmonary disease, chronic bronchitis. 7.Chronic respiratory failure on 2 L via nasal cannula. 8.Obesity. 9.Disuse myopathy. 10.Psoriasis. 11.Congestive heart failure, diastolic dysfunction. 12.Sleep apnea, noncompliant. 13.History of lung cancer, not on treatment. Discharge Diagnoses: 1.Atypical chest pain due to her left rib fracture, acute coronary syndrome ruled out. 2.Left fifth rib fracture, mildly displaced, likely due to possible metastatic lung cancer. 3.Chronic renal insufficiency, chronic kidney disease stage 3 with acute kidney injury, improved. C reatinine seems to be back to baseline. Appreciate Nephrology input. 4.Hyperkalemia, we will give Kayexalate. 5.History of hyperlipidemia, elevated triglycerides. 6.Acute cystitis without hematuria secondary to Escherichia coli resistant to Cipro. We will change to Bactrim. 7.Chronic obstructive pulmonary disease, chronic bronchitis. We will continue nebulizer treatments. 8.Disuse myopathy, wheelchair bound. 9.Obstructive sleep apnea, noncompliant. 10.Chronic pain. Hospital Course: Patient is an 84-year-old female from the nursing facility, comes in with chest [facility] n. The patient was initially admitted to rule out ACS. Cardiac enzymes were negative. Cardiology w as consulted. Her echocardiogram showed EF of 61%. There was no wall motion abnormality. No effusi on was noted. The patient's kidney function was slightly elevated compared to baseline. She does jaquez ve chronic kidney disease. She was seen by Nephrology. Creatinine improved. Lipid panel did show s ome elevated triglyceride levels. Patient also had UTI, which was treated with IV antibiotics. Rosita ent's urine culture grew out E coli with multidrug resistance. The patient's antibiotics were adjust ed according to cultures. Renal ultrasound was also done showed increased renal echotexture consiste nt with parenchymal disease. Patient had left shoulder pain. X-ray was done and the patient was als o found to have a fracture of the left fifth rib on imaging study. This was likely considered a path ologic fracture due to her lung mass. She has metastatic lesions of the liver and I did not wish to have any further diagnosis or workup done. Patient understands that this lung cancer is metastatic, will likely be the cause of or complications related to it. She understands that without furth er diagnostic processes and evaluation and treatment by Oncology and Pulmonology, she will likely suc cumb to her illness. She understands the risks and benefits. She does not wish to undergo chemother apy, radiation therapy. She stated that multiple family members including siblings who went through chemo and radiation for lung cancer, they did not have good outcomes. She understands that her outco me may be different, however does not wish to go through such invasive measures. She also has a poor quality of life, alf resident, is bed-bound, is wheelchair bound. Her code status was dee ged to do not resuscitate. The patient did not wish to go through any resuscitative measures includi ng CPR or mechanical ventilation in the case of an emergency due to her overall poor prognosis. Rosita spears then chose to undergo hospice care. She did not wish for any aggressive care at this time. Rosita spears was then referred for hospice and wanted hospice for home. Once that is set up, patient will be discharged home with hospice. Condition, fair. Overall prognosis is very poor. Life expectancy is likely less than 6 months due to metastatic lung cancer. Diet: Heart healthy, fluid-restricted diet. Medications: As per medication reconciliation list. Activity: Fall precautions. Physical Examination: General: Awake, alert, and oriented x3. Elderly female. CV: S1, S2. Respiratory: Diminished breath sounds at the bases. Gastrointestinal: Abdomen is soft, nontender, nondistended. Positive bowel sounds. Extremities: No clubbing, cyanosis, or edema. Neurologic: Nonfocal. The patient has generalized weakness in her lower extremities, left greater t montiel right, chronic. Total time spent discharging the patient was 38 minutes. /ADIEL Voice ID: [id number] Report ID: [id number]
== END 2019-09-28 17:50 | disposition hospice, home (50) | DRG 542 ==
LOC: ER 08:24 → OBSVTOIN 11:50 → ERHOLD 11:50 → 2ND 14:00
PROVIDERS: ADMIT Family Medicine; ATTEND Family Medicine
DX: C79.51 Secondary malignant neoplasm of bone (principal); N17.0 Acute kidney failure with tubular necrosis; M84.48XA Pathological fracture, other site, initial encounter for fracture; I50.32 Chronic diastolic (congestive) heart failure; I13.0 Hypertensive heart and chronic kidney disease with heart failure and stage 1 through stage 4 chronic kidney disease, or unspecified chronic kidney disease; Z68.41 Body mass index [BMI] 40.0-44.9, adult; C34.90 Malignant neoplasm of unspecified part of unspecified bronchus or lung; C78.7 Secondary malignant neoplasm of liver and intrahepatic bile duct; N30.00 Acute cystitis without hematuria; N18.3 Chronic kidney disease, stage 3 (moderate); I45.10 Unspecified right bundle-branch block; E66.01 Morbid (severe) obesity due to excess calories; E78.5 Hyperlipidemia, unspecified; E78.2 Mixed hyperlipidemia; J42 Unspecified chronic bronchitis; G72.9 Myopathy, unspecified; G47.30 Sleep apnea, unspecified; L40.9 Psoriasis, unspecified; M25.512 Pain in left shoulder; R07.89 Other chest pain; K80.80 Other cholelithiasis without obstruction; E87.5 Hyperkalemia; B96.20 Unspecified Escherichia coli [E. coli] as the cause of diseases classified elsewhere; Z99.81 Dependence on supplemental oxygen
CPT/HCPCS: 36415; 71045; 71250; 74176; 76705; 76770; 80048; 80053; 80061; 80076; 81001; 83690; 83880; 84484; 85025; 87077; 87086; 87088; 87186; 93005; 93306; 94760; 96374; 99285; J1650; J2405; J7030; P9047